=== PATIENT | male | born 1935 | race Hispanic/Latino ===

== ENCOUNTER 2021-02-03 21:19 | Emergency (ER) ==
--- OUTSIDE RECORDS SUMMARY | 2021-02-03 21:23 | XMS REPORT | Continuity of Care Document ---
:1935 Author Organization [facility] t Address [address] [place] [address] Care Team Providers Name Role Phone Doctor Unassigned, Name Attending Clinician Unavailable Gabe ANSARI, A Attending Clinician Problems This patient has no known problems. Allergies, Adverse Reactions, Alerts This patient has no known allergies or adverse reactions. Medications This patient has no known medications. Procedures This patient has no known procedures. Encounters Start End Encounter Admission Attending Care Care Encounter Source Date/Time Date/Time Type Type Clinicians Facility Department ID 2020-12-07 2020-12-07 Orders Doctor SHANELL [id number] 00:00:00 00:00:00 Only Unassigned, [place] [id number] [place] [facility] [id number] 2020-11-20 2020-11-20 Refill Gabe [facility] [id number] 00:00:00 00:00:00 [facility] [id number] [place] [id number] [facility] [phone] nal 044 [address] 2020-11-09 2020-11-09 Christiano Bernal [facility] [id number] 00:00:00 00:00:00 Management [facility] [id number] [place] [id number] Profess[facility] [phone] nal 044 [address] One 2020-10-29 2020-10-29 Office SACHA Bernal [id number] 08:09:38 09:09:55 Visit [facility] [id number] [place] [id number] [place] [phone] nal 044 [address] One Results This patient has no known results.
[2021-02-03 22:51] LABS: Urine Blood Negative (Negative); Urine Glucose 2+ (Negative); Urine Protein Trace (Negative); Urine Specific Gravity <=1.005 (1.005-1.030)
[2021-02-03 23:30] LABS: Absolute Lymphocytes (CBC) 0.6 K/uL (0.7-4.9); Basophils % 0.2 % (0-1.3); Hematocrit 40.5 % (39.6-49.0); Lymphocytes % 16.8 % (15.3-44.8); MPV 8.7 fL (7.6-11.3)
[2021-02-03 23:40] LABS: Protime INR 1.14
[2021-02-03 23:50] LABS: ALT/SGPT 31 U/L (12-78); AST/SGOT 27 U/L (15-37); Albumin 3.1 g/dL (3.4-5.0); Alkaline Phosphatase 58 U/L (45-117); Amylase 35 U/L (25-115); BUN Blood Urea Nitrogen 19 mg/dL (7-18); Bicarbonate 26 mmol/L (21-32); Bilirubin Direct 0.1 mg/dL (0-0.2); Bilirubin Total 0.3 mg/dL (0.2-1.0); Creatine Phosphokinase 31 U/L (39-308); Glucose Level 362 mg/dL (74-106); Lipase 74 U/L (73-393); Magnesium 1.7 mg/dL (1.8-2.4); NT PRO-BNP 118 pg/mL (<450); Potassium 3.8 mmol/L (3.5-5.1); Protein, Total 6.9 g/dL (6.4-8.2); Sodium Level 139 mmol/L (136-145); Troponin I < 0.02 ng/mL (0.0-0.045)
[2021-02-03 23:51] LABS: CKMB Creatine Kinase MB < 1.0 ng/mL (1.0-3.6)
[2021-02-04] MEDS ORDERED: NA CHLORIDE 0.9% 1,000 ML ONE (00:16)
[2021-02-04] MEDS ORDERED: NA CHLORIDE 0.9% 500 ML ONE (00:16)
[2021-02-04] MEDS ORDERED: ACETAMINOPHEN 500 MG TAB ONE (00:54)
[2021-02-04 01:37] LABS: Blood Morphology Comment NOTED (NOT SEEN); Platelet Estimate DECR; White Blood Cell Scan OK (OK)
[2021-02-04 01:47] LABS: SARS-COV-2 RT PCR POSITIVE (NEGATIVE)
[2021-02-04 01:49] LABS: Urine Bacteria <20 /HPF (NONE SEEN); Urine RBC NONE SEEN /HPF (NONE SEEN)
--- NOTE | 2021-02-04 01:56 | ER ---
Nurse's Notes [facility] Name: Ryan Hunter Age: 85 yrs Sex: Male : 1935 Arrival Date: 02/03/2021 Time: 22:12 Bed 20 Private MD: Diagnosis: Coronavirus infection, unspecified Presentation: 02/03 22:40 Method Of Arrival: EMS: [facility] kg 22:40 Coronavirus screen: Client denies travel out of the [place] in the last 14 days. At this kg time, unable to obtain information related to travel outside the [place] Client presents with at least one sign or symptom that may indicate coronavirus-19. Standard/surgical mask placed on the client. Provider contacted for isolation considerations. Ebola Screen: Patient negative for fever greater than or equal to 101.5 degrees Fahrenheit, and additional compatible Ebola Virus Disease symptoms Patient denies exposure to infectious person. Patient denies travel to an Ebola-affected area in the 21 days before illness onset. Initial Sepsis Screen: Does the patient meet any 2 criteria? RR > 20 per min. HR > 90 bpm. Does the patient have a suspected source of infection? No. Patient's initial sepsis screen is negative. Risk Assessment: Do you want to hurt yourself or someone else? Patient reports no desire to harm self or others. Onset of symptoms was February 03, 2021 at 06:00. 22:40 Acuity: SHARLENE 3 kg 23:02 Chief complaint: Patient states: Confusion, fever, and cough since 0600. Family found kg patient outside banging on window trying to get in saying that he was going to visit his brother which leaves in [place], . Was running a fever of 103.1 per family. This happened at 0600 EMS states: Pt was found outside at 0600 per family confused banging on the window saying he was going to visit his brother in [place]. Daughter stated he was running a fever of 103.1 at this time. Triage Assessment: 23:25 General: Appears in no apparent distress. Behavior is calm, cooperative, inappropriate kg for age. Pain: Denies pain. EENT: No deficits noted. Neuro: Level of Consciousness is awake, alert, confused, Oriented to person. Cardiovascular: No deficits noted. Cardiovascular: Capillary refill < 3 seconds Rhythm is regular. Respiratory: No deficits noted. Respiratory: Airway is patent Trachea midline Respiratory effort is even, unlabored, relaxed, Respiratory pattern is regular, Breath sounds are diminished bilaterally. GI: No deficits noted. : No deficits noted. Derm: No deficits noted. Historical: - Allergies: 23:17 No Known Allergies; kg - Home Meds: 23:17 Vitamin D Oral 400 unit daily [Active]; Farxiga 10 mg oral tab 1 tab once daily kg [Active]; esomeprazole magnesium 40 mg oral cpDR 1 cap once daily [Active]; Vytorin 10-20 10-20 mg oral tab 1 tab once daily [Active]; metformin 750 mg Oral Tb24 1 tab once daily [Active]; metoprolol tartrate 25 mg Oral tab 1 tab once daily [Active]; Myrbetriq 50 mg oral Tb24 1 tab once daily for bladder hyperactivity [Active]; mirtazapine 30 mg Oral TbDi 1 tab once daily [Active]; nateglinide 60 mg oral tab 1 tab 3 times per day [Active]; nitroglycerin 0.4 mg SL subl 1 tab every 5 minutes [Active]; [place]-3 Fish Oil 300-1,000 mg oral cap daily [Active]; Zofran 4 mg Oral tab 1 tab 4 times per day [Active]; Onglyza 5 mg oral tab 1 tab once daily [Active]; Revlimid 25 mg oral cap 1 cap once daily [Active]; tamsulosin 0.4 mg oral cap 1 cap once daily [Active]; tizanidine 2 mg oral cap 1 cap once daily [Active]; tramadol 50 mg oral tab 1 tab every 4 hours [Active]; Vitamin B-6 100 mg Oral tab 100 mg daily [Active]; - PMHx: 23:25 Arrhythmia; BPH; NDDM; GERD; HLD; HTN; Phimosis; Macrocytosis; Abnormal liver function kg test; Thrombocytopenia; Internal Hemorrhoids; Bright red blood per rectum; Constipation; Acute low back pain with sciatica; Polycythemia; lumbar stenosis; urinary and fecal incontinence; - Immunization history:: Adult Immunizations not up to date, Client reports having NOT received the Covid vaccine. - Social history:: Smoking status: Patient denies any tobacco usage or history of. Screenin:31 Abuse screen: Denies threats or abuse. Denies injuries from another. Nutritional kg screening: No deficits noted. Tuberculosis screening: No symptoms or risk factors identified. Fall Risk None identified. No fall in past 12 months (0 pts). Secondary diagnosis (15 points) Confusion. IV access (20 points). Ambulatory Aid- None/Bed Rest/Nurse Assist (0 pts). Gait- Impaired (20 pts.). Mental Status- Overestimates/Forgets Limitations (15 pts.). Total Cage Fall Scale indicates Low Risk Score (25-44 pts). Fall prevention measures have been instituted. Side Rails Up X 2 Placed close to Nursing Station Frequent Obs/Assesments occuring Family Present and informed to notify staff if they need to leave bedside As available Patient and Family Educated on Fall Prevention Program and strategies. Assessment: 23:31 Reassessment: See triage assessment. kg 02/04 02:30 Reassessment: Patient appears in no apparent distress at this time. Patient and/or em family updated on plan of care and expected duration. Pain level reassessed. Patient is alert, oriented x 3, equal unlabored respirations, skin warm/dry/pink. Vital Signs: 02/03 22:00 BP 130 / 67; Pulse 88; Resp 24; Pulse Ox 96% ; kg 22:30 BP 113 / 62; Pulse 83; Resp 22; Pulse Ox 95% ; kg 22:40 BP 117 / 61; Pulse 92; Resp 25; Temp 100.5(O); Pulse Ox 95% on R/A; Weight 79.38 kg kg (R); Height 5 ft. 5 in. (165.10 cm) (R); Pain 0/10; 23:00 BP 126 / 66; Pulse 78; Resp 23; Pulse Ox 96% ; kg 23:30 BP 124 / 79; Pulse 100; Resp 24; Pulse Ox 96% ; kg 02/04 00:45 Temp 98.7(O); kg 02:30 BP 124 / 79; Pulse 95; Resp 16; Pulse Ox 97% on R/A; em 02/03 22:40 Body Mass Index 29.12 (79.38 kg, 165.10 cm) kg ED Course: 02/03 22:12 Patient arrived in ED. em 22:36 [facility] kb 22:36 Yamilet Sommer is Attending Physician. kb 22:43 Shelley Clifton, RN is Primary Nurse. kg 23:17 Triage completed. kg 23:32 Maintain EMS IV. Dressing intact. Good blood return noted. Site clean \T\ dry. Gauge \T\ kg site: 20 R AC. 23:32 Arm band placed on right wrist. kg 23:32 Patient has correct armband on for positive identification. Placed in gown. Bed in low kg position. Call light in reach. Side rails up X2. Adult w/ patient. 23:33 Blood Culture Sent. kg 23:33 Blood Culture Sent. kg 23:33 CBC with Automated Diff Sent. kg 23:33 Protime (+INR) Sent. kg 23:33 PTT, Activated Partial Thromb Sent. kg 23:33 Procalcitonin Sent. kg 23:33 Lactate Sent. kg 23:33 Amylase Sent. kg 23:33 Lipase Sent. kg 23:33 NT PRO-BNP Sent. kg 23:33 Acetone Level Sent. kg 23:33 Troponin I Sent. kg 23:33 CKMB Creatine Kinase MB Sent. kg 23:33 Magnesium Sent. kg 23:33 Creatine Phosphokinase Sent. kg 0819 00:14 Head Brain Wo Cont In Process Unspecified. EDMS 01:19 Chest Single View In Process Unspecified. EDMS 02:42 No provider procedures requiring assistance completed. IV discontinued, intact, em bleeding controlled, No redness/swelling at site. Pressure dressing applied. Administered Medications: 00:20 Drug: NS 0.9% (30 ml/kg) 30 ml/kg Route: IV; Rate: bolus; Site: right antecubital; kg 02:45 Follow up: IV Status: Completed infusion; IV Intake: 2000ml em 00:41 Drug: Tylenol 1000 mg Route: PO; kg 01:08 Follow up: Response: No adverse reaction; Temperature is decreased kg Intake: 02:45 IV: 2000ml; Total: 2000ml. em Outcome: 01:55 Discharge ordered by . randi 02:42 Discharged to home via wheelchair, with family. em 02:42 Condition: stable 02:42 Discharge instructions given to patient, Instructed on discharge instructions, follow up and referral plans. Demonstrated understanding of instructions, follow-up care. 02:45 Patient left the ED. em Signatures: Dispatcher [employer] EDCA Eliza Hill, ROCHELLE-C CARE TECH-Thanh Chang, MATEO RN Shelley Retana, RN RN kg
--- NOTE | 2021-02-04 01:57 | EDPHYS ---
Physician Documentation [facility] Name: Ryan Hunter Age: 85 yrs Sex: Male : 1935 Arrival Date: 02/03/2021 Time: 22:12 Bed 20 Private MD: ED Physician Yamilet Sommer HPI: 02/04 01:29 This 85 yrs old Male presents to ER via EMS with complaints of fever, cough. kb 01:29 The patient or guardian reports cough, that is intermittent, described as mild. Onset: kb The symptoms/episode began/occurred 2 day(s) ago. Severity of symptoms: At their worst the symptoms were moderate, in the emergency department the symptoms are unchanged. Modifying factors: The symptoms are alleviated by nothing, the symptoms are aggravated by nothing. Associated signs and symptoms: Pertinent positives: fever, Pertinent negatives: chest pain, diarrhea, ear ache, nausea, rhinorrhea, sore throat, vomiting. The patient has not experienced similar symptoms in the past. The patient has not recently seen a physician. Daughter reports pt has had cough and fever up to 103 for 2 days. States he has confusion, difficulty ambulating (uses cane) and memory problems that have progressively been getting worse over the past few months. Historical: - Allergies: 02/03 23:17 No Known Allergies; kg - Home Meds: 23:17 Vitamin D Oral 400 unit daily [Active]; Farxiga 10 mg oral tab 1 tab once daily kg [Active]; esomeprazole magnesium 40 mg oral cpDR 1 cap once daily [Active]; Vytorin 10-20 10-20 mg oral tab 1 tab once daily [Active]; metformin 750 mg Oral Tb24 1 tab once daily [Active]; metoprolol tartrate 25 mg Oral tab 1 tab once daily [Active]; Myrbetriq 50 mg oral Tb24 1 tab once daily for bladder hyperactivity [Active]; mirtazapine 30 mg Oral TbDi 1 tab once daily [Active]; nateglinide 60 mg oral tab 1 tab 3 times per day [Active]; nitroglycerin 0.4 mg SL subl 1 tab every 5 minutes [Active]; [place]-3 Fish Oil 300-1,000 mg oral cap daily [Active]; Zofran 4 mg Oral tab 1 tab 4 times per day [Active]; Onglyza 5 mg oral tab 1 tab once daily [Active]; Revlimid 25 mg oral cap 1 cap once daily [Active]; tamsulosin 0.4 mg oral cap 1 cap once daily [Active]; tizanidine 2 mg oral cap 1 cap once daily [Active]; tramadol 50 mg oral tab 1 tab every 4 hours [Active]; Vitamin B-6 100 mg Oral tab 100 mg daily [Active]; - PMHx: 23:25 Arrhythmia; BPH; NDDM; GERD; HLD; HTN; Phimosis; Macrocytosis; Abnormal liver function kg test; Thrombocytopenia; Internal Hemorrhoids; Bright red blood per rectum; Constipation; Acute low back pain with sciatica; Polycythemia; lumbar stenosis; urinary and fecal incontinence; - Immunization history:: Adult Immunizations not up to date, Client reports having NOT received the Covid vaccine. - Social history:: Smoking status: Patient denies any tobacco usage or history of. ROS: 02/04 01:27 Abdomen/GI: Negative for abdominal pain, nausea, vomiting, diarrhea, and constipation. kb Constitutional: Positive for fever, Negative for body aches, chills, fatigue, malaise, poor PO intake, weight loss. Respiratory: Positive for cough, Negative for dyspnea on exertion, hemoptysis, orthopnea, pleurisy, shortness of breath, sputum production, wheezing. Neuro: Positive for altered mental status. All other systems are negative. Exam: 01:29 Constitutional: This is a well developed, well nourished patient who is awake, alert, kb and in no acute distress. Head/Face: Normocephalic, atraumatic. ENT: Moist Mucous membranes Cardiovascular: Regular rate and rhythm with a normal S1 and S2. No gallops, murmurs, or rubs. No pulse deficits. Respiratory: Respirations even and unlabored. No increased work of breathing, no retractions or nasal flaring. Abdomen/GI: Soft, non-tender. No distention Skin: Warm, dry with normal turgor. Normal color. MS/ Extremity: Pulses equal, no cyanosis. Neurovascular intact. Full, normal range of motion. Psych: Awake, alert, with orientation to person, place and time. Behavior, mood, and affect are within normal limits. 01:29 Neuro: Orientation: to person, place, Mentation: able to follow commands, Memory: no acute changes. Vital Signs: 02/03 22:00 BP 130 / 67; Pulse 88; Resp 24; Pulse Ox 96% ; kg 22:30 BP 113 / 62; Pulse 83; Resp 22; Pulse Ox 95% ; kg 22:40 BP 117 / 61; Pulse 92; Resp 25; Temp 100.5(O); Pulse Ox 95% on R/A; Weight 79.38 kg kg (R); Height 5 ft. 5 in. (165.10 cm) (R); Pain 0/10; 23:00 BP 126 / 66; Pulse 78; Resp 23; Pulse Ox 96% ; kg 23:30 BP 124 / 79; Pulse 100; Resp 24; Pulse Ox 96% ; kg 02/04 00:45 Temp 98.7(O); kg 02:30 BP 124 / 79; Pulse 95; Resp 16; Pulse Ox 97% on R/A; em 02/03 22:40 Body Mass Index 29.12 (79.38 kg, 165.10 cm) kg MDM: 02/03 22:36 Patient medically screened. kb 02/04 01:29 Data reviewed: vital signs, nurses notes. Data interpreted: Pulse oximetry: on room air kb is 96 %. Interpretation: normal. 01:55 Counseling: I had a detailed discussion with the patient and/or guardian regarding: the kb historical points, exam findings, and any diagnostic results supporting the discharge/admit diagnosis, lab results, radiology results, the need for outpatient follow up, a family practitioner, to return to the emergency department if symptoms worsen or persist or if there are any questions or concerns that arise at home. 02/03 22:40 Order name: Urine Microscopic Only; Complete Time: 01:53 kb 02/03 22:50 Order name: Urine Dipstick-Ancillary; Complete Time: 22:52 EDMS 02/03 22:55 Order name: Glucose, Ancillary Testing; Complete Time: 22:58 EDMS 02/03 23:24 Order name: Basic Metabolic Panel; Complete Time: 01:00 EDMS 02/03 23:24 Order name: Liver (Hepatic) Function; Complete Time: 01:00 EDMS 02/03 23:24 Order name: Creatine Phosphokinase; Complete Time: 01:00 EDMS 02/03 23:24 Order name: CKMB Creatine Kinase MB; Complete Time: 01:00 EDMS 02/03 23:24 Order name: Troponin I; Complete Time: 01:00 EDMS 02/03 23:24 Order name: NT PRO-BNP; Complete Time: 01:00 EDMS 02/03 23:24 Order name: Acetone Level; Complete Time: 01:00 EDMS 02/03 23:24 Order name: Magnesium; Complete Time: 01:00 EDMS 02/03 23:24 Order name: Amylase; Complete Time: 01:00 EDMS 02/03 23:24 Order name: Lipase; Complete Time: 01:00 EDMS 02/03 22:40 Order name: Cardiac monitoring; Complete Time: 23:34 kb 02/03 22:40 Order name: IV Saline Lock; Complete Time: 23:34 kb 02/03 22:40 Order name: Labs collected and sent; Complete Time: 23:34 kb 02/03 22:40 Order name: O2 Per Protocol; Complete Time: 23:34 kb 02/03 22:40 Order name: O2 Sat Monitoring; Complete Time: 23:34 kb 02/03 22:40 Order name: Urine Dipstick-Ancillary (obtain specimen); Complete Time: 00:12 kb 02/03 22:46 Order name: Accucheck; Complete Time: 23:34 kb 02/03 22:46 Order name: IV Saline Lock - Large Bore; Complete Time: 23:34 kb 02/03 23:24 Order name: Lactate; Complete Time: 23:50 EDMS 02/03 23:24 Order name: Procalcitonin; Complete Time: 01:53 EDMS 02/03 23:24 Order name: CBC with Automated Diff; Complete Time: 01:53 EDMS 02/03 23:24 Order name: Protime (+INR); Complete Time: 23:41 EDMS 02/03 23:24 Order name: PTT, Activated Partial Thromb; Complete Time: 23:41 EDMS 02/03 23:25 Order name: Blood Culture EDMS 02/03 23:25 Order name: Blood Culture EDMS 02/03 23:25 Order name: Head Brain Wo Cont EDMS 02/03 23:25 Order name: Chest Single View EDMS 02/03 23:35 Order name: CBC Smear Scan; Complete Time: 01:53 EDMS 02/04 01:48 Order name: COVID-19/FLU A+B; Complete Time: 02:33 EDMS Administered Medications: 00:20 Drug: NS 0.9% (30 ml/kg) 30 ml/kg Route: IV; Rate: bolus; Site: right antecubital; kg 02:45 Follow up: IV Status: Completed infusion; IV Intake: 2000ml em 00:41 Drug: Tylenol 1000 mg Route: PO; kg 01:08 Follow up: Response: No adverse reaction; Temperature is decreased kg Disposition: 07:17 Co-signature as Attending Physician, Yamilet Sommer I agree with the assessment and plan sp3 of care. Disposition Summary: 02/04/21 01:55 Discharge Ordered Location: Home kb Condition: Stable kb Diagnosis - Coronavirus infection, unspecified kb Followup: kb - With: Private Physician - When: 2 - 3 days - Reason: Recheck today's complaints, Continuance of care, Re-evaluation by your physician Followup: kb - With: Emergency Department - When: As needed - Reason: Worsening of condition Discharge Instructions: - Discharge Summary Sheet kb - Viral Respiratory Infection, Mrid-Hm-Nuzq kb - COVID-19 kb Forms: - Medication Reconciliation Form kb - Thank You Letter kb - Antibiotic Education kb - Prescription Opioid Use kb Signatures: Dispatcher [employer] EDEliza Quan, CIRAC BATCH FREEZER-Ckb Kirk Kennedy FNP-C BATCH FREEZER-Cla1 Shelley Clifton, RN RN kg Yamilet Sommer sp3 Thanh Dyson RN em Corrections: (The following items were deleted from the chart) 02/03 23:57 23:49 BASIC METABOLIC PANEL+C.LAB.BRZ ordered. EDMS EDMS 23:57 23:49 CBC+H.LAB.BRZ ordered. EDMS EDMS 23:57 23:49 HEPATIC FUNCTION+C.LAB.BRZ ordered. EDMS EDMS 23:57 23:49 MAGNESIUM+C.LAB.BRZ ordered. EDMS EDMS 23:57 23:49 PROBNP+C.LAB.BRZ ordered. EDMS EDMS 23:57 23:49 PROTIME (+INR)+COAG.LAB.BRZ ordered. EDMS EDMS 23:57 23:49 TROPONIN (EMERG DEPT USE ONLY)+C.LAB.BRZ ordered. EDMS EDMS 23:57 23:49 ACETONE, SERUM+C.LAB.BRZ ordered. EDMS EDMS : 23:50 AMYLASE, SERUM+C.LAB.BRZ ordered. EDMS EDMS 23: 23:50 BLOOD CULTURE*+BA.LAB.BRZ ordered. EDMS EDMS : 23:50 CREATINE PHOSPHOKINASE+C.LAB.BRZ ordered. EDMS EDMS 23: 23:50 CKMB+C.LAB.BRZ ordered. EDMS EDMS 23: 23:50 LACTATE+C.LAB.BRZ ordered. EDMS EDMS 23: 23:50 LIPASE+C.LAB.BRZ ordered. EDMS EDMS 23: 23:50 PCT+C.LAB.BRZ ordered. EDMS EDMS 23: 23:50 PTT, ACTIVATED+COAG.LAB.BRZ ordered. EDMS EDMS 23: 23:50 CORONAVIRUS+MR.LAB.BRZ ordered. EDMS EDMS 02/04 00:24 02/03 23:51 Head Brain Wo Cont+CT.RAD.BRZ ordered. EDMS EDMS 02/04 01:30 02/03 23:49 Chest Single View+RAD.RAD.BRZ ordered. EDMS EDMS 02/04 01:36 01:33 Influenza Screen (A \T\ B)+BA.LAB.BRZ ordered. EDMS EDMS
--- NOTE | 2021-02-04 10:48 | RAD REPORT ---
EXAM DESCRIPTION: RADChest Single View02/04/2021 1:20 am COMPARISON: None. CLINICAL HISTORY: Dyspnea FINDINGS: A single AP view of the chest demonstrates a normal cardiomediastinal silhouette. No pneumothorax or pleural effusion. No consolidation or pulmonary edema. Osseous structures are intact. IMPRESSION: No acute chest process. Electronically signed by: Raf Hilton MD 02/04/2021 1:31 AM CDT Due to temporary technical issues with the PACS/Fluency reporting system, reports are being signed by the in house radiologists without review as a courtesy to insure prompt reporting. The interpreting radiologist is fully responsible for the content of the report.
--- NOTE | 2021-02-04 11:18 | RAD REPORT ---
EXAM DESCRIPTION: CT - Head Brain Wo Cont - 02/04/2021 6:23 am CLINICAL HISTORY: 85 years Male mental status change COMPARISON: None. TECHNIQUE: Contiguous axial CT images obtained through the brain without IV contrast. This exam was performed according to our department optimization program which includes automated exp osure control, adjustment of the mA and/or kv according to patient size and/or use of iterative recon struction technique. FINDINGS: The ventricles and sulci are prominent consistent with atrophic changes. Microvascular ischemic changes. No mass lesions. No acute hemorrhage. Atherosclerotic calcifications. No fluid or significant mucosal thickening in the visualized paranasal sinuses. No depressed calvarial fractures. IMPRESSION: Atrophy and microvascular ischemic changes. No acute intracranial abnormality is ident ified. If there is clinical concern for the possibility of acute ischemic change, MRI could be obta ined to better evaluate. Electronically signed by: Calos Landon MD 02/04/2021 12:28 AM CDT Due to temporary technical issues with the PACS/Fluency reporting system, reports are being signed by the in house radiologists without review as a courtesy to insure prompt reporting. The interpreting radiologist is fully responsible for the content of the report.
== END 2021-02-04 02:45 | disposition home or self-care (01) ==
LOC: ER 21:19
DX: U07.1 COVID-19 (principal); I10 Essential (primary) hypertension; E11.9 Type 2 diabetes mellitus without complications
CPT/HCPCS: 0240U; 36415; 70450; 71045; 80048; 80076; 81003; 81015; 82010; 82150; 82550; 82553; 82947; 83605; 83690; 83735; 83880; 84145; 84484; 85025; 85610; 85730; 87040; 87205; 96365; 96366; 99284; U0003

== ENCOUNTER 2021-02-11 12:41 | Inpatient (IN) | payer OTHER ==
--- OUTSIDE RECORDS SUMMARY | 2021-02-11 12:44 | XMS REPORT | Continuity of Care Document ---
:1935 Author Organization [facility] t Address [address] [place] [address] Care Team Providers Name Role Phone Doctor Unassigned, Name Attending Clinician Unavailable Gabe ANSARI, Jarrell Attending Clinician Problems This patient has no known problems. Allergies, Adverse Reactions, Alerts This patient has no known allergies or adverse reactions. Medications This patient has no known medications. Procedures This patient has no known procedures. Encounters Start End Encounter Admission Attending Care Care Encounter Source Date/Time Date/Time Type Type Clinicians Facility Department ID 2020-12-07 2020-12-07 Orders Doctor SHANELL [id number] 00:00:00 00:00:00 Only Unassigned[place] [id number] [place] [facility] [id number] 2020-11-20 2020-11-20 Refill JYOTI Bernal [id number] 00:00:00 00:00:00 [facility] [id number] [place] [id number] [facility] [phone] nal 0[address] 2020-11-09 2020-11-09 JYOTI Hawley [id number] 00:00:00 00:00:00 Management [facility] [id number] [place] [id number] [facility] [phone] nal 044 [address] 2020-10-29 2020-10-29 Office Gabe [facility] [id number] 08:09:38 09:09:[address] [facility] [id number] [place] [id number] [place] [phone] [place] [address] [address] Results This patient has no known results.
[2021-02-11 13:25] LABS: Absolute Lymphocytes (CBC) 0.8 K/uL (0.7-4.9); Basophils % 0.3 % (0-1.3); Hematocrit 40.9 % (39.6-49.0); Lymphocytes % 13.9 % (15.3-44.8)
[2021-02-11 13:27] LABS: Protime INR 1.37
--- NOTE | 2021-02-11 13:28 | RAD REPORT ---
EXAM DESCRIPTION: RAD - Chest Single View - 02/11/2021 1:20 pm CLINICAL HISTORY: covid, sob COMPARISON: Chest Single View dated 02/04/2021 FINDINGS: Mild scattered bilateral airspace opacities which are new from prior. The heart size is wi thin normal limits.No acute osseous abnormality. No significant pleural effusions or pneumothorax. IMPRESSION: Mild bilateral airspace opacities which is new from prior and concerning for multifocal pneumonia, including Covid-19.
[2021-02-11 13:58] LABS: ALT/SGPT 35 U/L (12-78); AST/SGOT 51 U/L (15-37); Albumin 2.6 g/dL (3.4-5.0); Alkaline Phosphatase 61 U/L (45-117); BUN Blood Urea Nitrogen 15 mg/dL (7-18); Bicarbonate 25 mmol/L (21-32); Bilirubin Direct 0.2 mg/dL (0-0.2); Bilirubin Total 0.4 mg/dL (0.2-1.0); Glucose Level 371 mg/dL (74-106); Magnesium 1.9 mg/dL (1.8-2.4); NT PRO-BNP 821 pg/mL (<450); Potassium 3.3 mmol/L (3.5-5.1); Protein, Total 7.3 g/dL (6.4-8.2); Sodium Level 139 mmol/L (136-145); Troponin (Emerg Dept Use Only) < 0.02 ng/mL (0.0-0.045)
[2021-02-11] MEDS ORDERED: dexAMETHasone 10 MG/ML VIAL ONE (14:57)
[2021-02-11] MEDS ORDERED: dexAMETHasone 4 MG/ML VIAL ONE (14:58)
--- NOTE | 2021-02-11 15:14 | ER ---
Nurse's Notes [facility] Name: Ryan Colorado Age: 85 yrs Sex: Male : 1935 Arrival Date: 02/11/2021 Time: 12:44 Bed 26 Private MD: Diagnosis: Coronavirus - Hypoxia Presentation: 02/11 12:45 Chief complaint: EMS states: +COVID last week, c/o SOB. per EMS o2 sat 70s on RA. tr6 Coronavirus screen: At this time, unable to obtain information related to travel outside the [place] difficulty breathing, shortness of breath. Ebola Screen: No symptoms or risks identified at this time. Initial Sepsis Screen: Does the patient meet any 2 criteria? No. Patient's initial sepsis screen is negative. Does the patient have a suspected source of infection? Yes: Other: +covid. Risk Assessment: Do you want to hurt yourself or someone else? Patient reports no desire to harm self or others. Onset of symptoms is unknown. 12:45 Method Of Arrival: EMS: [facility] tr6 12:45 Acuity: SHARLENE 3 tr6 Triage Assessment: 12:46 General: Appears in no apparent distress. Behavior is calm, cooperative, appropriate tr6 for age. Pain: Denies pain. EENT: No deficits noted. Neuro: Level of Consciousness is awake, alert, obeys commands, Oriented to person, place, time, situation, Appropriate for age. Cardiovascular: No deficits noted. Respiratory: Reports shortness of breath at rest on exertion. GI: No deficits noted. : No deficits noted. Derm: No deficits noted. Musculoskeletal: No deficits noted. Historical: - Immunization history:: Client reports having NOT received the Covid vaccine. - Social history:: Smoking status: unknown. Screenin:48 Abuse screen: Denies threats or abuse. Denies injuries from another. Nutritional tr6 screening: No deficits noted. Tuberculosis screening: No symptoms or risk factors identified. Fall Risk None identified. Assessment: 13:23 Reassessment: see triage assessment. tr6 Vital Signs: 12:45 BP 138 / 86; Pulse 112; Resp 20; Temp 99(O); Pulse Ox 91% on 6 lpm NC; tr6 14:30 BP 135 / 72; Pulse 103; Resp 20; Pulse Ox 90% on 6 lpm NC; tr6 ED Course: 12:44 Patient arrived in ED. tr6 12:45 Suzy Bernard, RN is Primary Nurse. tr6 12:46 Triage completed. tr6 12:48 No apparent distress. Awaiting ED provider evaluation. tr6 12:48 Patient has correct armband on for positive identification. Placed in gown. Bed in low tr6 position. Side rails up X2. linux unix system administrator on. Pulse ox on. NIBP on. Door closed. Noise minimized. Visitors limited. Lights dimmed. Moved to private room. Warm blanket given. Diet: Patient is NPO. 12:48 No provider procedures requiring assistance completed. Oxygen administration via nasal tr6 cannula \T\ 6L/min. 12:56 Terrence Salazar PA is PHCP. [facility] 12:56 Sina Jenkins MD is Attending Physician. [facility] 13:21 XRAY Chest (1 view) In Process Unspecified. EDMS 13:24 Inserted saline lock: 18 gauge in left wrist, using aseptic technique. Blood collected. tr6 15:08 Procalcitonin Sent. dh3 15:08 Lactate Sent. dh3 15:08 Ferritin Sent. dh3 15:08 CRP Sent. dh3 15:12 Donald Andrea is Hospitalizing Provider. [facility] Administered Medications: 14:40 Drug: Decadron - Dexamethasone 10 mg Route: IVP; Site: left wrist; tr6 15:06 Follow up: Response: No adverse reaction tr6 Outcome: 15:13 Decision to Hospitalize by Provider. [facility] 02/12 17:45 Patient left the ED. Signatures: Dispatcher [employer] EDMS Terrence Salazar PA PA jmm Smirch, Shelby RN RN Joann Mast [facility] Suzy Bernard, RN RN tr6 Corrections: (The following items were deleted from the chart) 02/11 12:47 12:46 Allergies: No Known Allergies; tr6 tr6 13:24 12:45 Chief complaint: EMS states: +COVID last week, c/o SOB tr6 tr6
--- NOTE | 2021-02-11 15:14 | EDPHYS ---
Physician Documentation [facility] Name: Ryan Colorado Age: 85 yrs Sex: Male : 1935 Arrival Date: 02/11/2021 Time: 12:44 Bed 26 Private MD: ED Physician Sina Jenkins HPI: 02/11 15:03 This 85 yrs old Male presents to ER via EMS with complaints of shortness of jmm breath. 15:03 Onset: The symptoms/episode began/occurred gradually. Duration: The symptoms are jmm continuous. The patient's shortness of breath. Associated signs and symptoms: Pertinent positives: non-productive cough, SOB, Pertinent negatives: chest pain. The patient has not experienced similar symptoms in the past. This is an 85 year old male that present to the ED with complaints of shortness of breath, coughing. Seen in the ED on the and discharged. Pulse o2 in the 70's on scene. . Historical: - Immunization history:: Client reports having NOT received the Covid vaccine. - Social history:: Smoking status: unknown. ROS: 15:03 Constitutional: Negative for fever, chills, and weight loss, Cardiovascular: Negative jmm for chest pain, palpitations, and edema. 15:03 Respiratory: Positive for cough, sob. 15:03 All other systems are negative. Exam: 15:03 Constitutional: This is a well developed, well nourished patient who is awake, alert, jmm and in no acute distress. Head/Face: atraumatic. Eyes: EOMI, no conjunctival erythema appreciated ENT: Moist Mucus Membranes Neck: Trachea midline, Supple Chest/axilla: Normal chest wall appearance and motion. Cardiovascular: Regular rate and rhythm. No edema appreciated Respiratory: Normal respirations, no respiratory distress appreciated Abdomen/GI: Non distended, soft Back: Normal ROM Skin: General appearance color normal MS/ Extremity: Moves all extremities, no obvious deformities appreciated, no edema noted to the lower extremities Psych: Behavior is normal, Mood is normal, Patient is cooperative and pleasant Vital Signs: 12:45 BP 138 / 86; Pulse 112; Resp 20; Temp 99(O); Pulse Ox 91% on 6 lpm NC; tr6 14:30 BP 135 / 72; Pulse 103; Resp 20; Pulse Ox 90% on 6 lpm NC; tr6 MDM: 13:05 Patient medically screened. allison 15:09 Data reviewed: vital signs, nurses notes. ED course: I discussed with Randy whom cale accepted the patient to Dr. Andrea's service. . 02/11 12:56 Order name: Basic Metabolic Panel; Complete Time: 14:03 [facility] 02/11 12:56 Order name: CBC with Diff; Complete Time: 13:36 [facility] 02/11 12:56 Order name: LFT's; Complete Time: 14:03 [facility] 02/11 12:56 Order name: Magnesium; Complete Time: 14:03 [facility] 02/11 12:56 Order name: NT PRO-BNP; Complete Time: 14:03 [facility] 02/11 12:56 Order name: PT-INR; Complete Time: 13:36 [facility] 02/11 12:56 Order name: Troponin (emerg Dept Use Only); Complete Time: 14:03 [facility] 02/11 14:44 Order name: CRP; Complete Time: 15:55 [facility] 02/11 14:44 Order name: Ferritin; Complete Time: 15:55 [facility] 02/11 14:44 Order name: Procalcitonin; Complete Time: 16:01 [facility] 02/11 14:44 Order name: Lactate; Complete Time: 15:54 [facility] 02/12 08:33 Order name: CBC with Automated Diff; Complete Time: 10:49 [facility] 02/12 08:35 Order name: Glucose, Ancillary Testing; Complete Time: 10:49 [facility] 02/12 09:33 Order name: Procalcitonin; Complete Time: 10:49 [facility] 02/11 12:56 Order name: XRAY Chest (1 view); Complete Time: 13:29 [facility] 02/11 12:56 Order name: EKG; Complete Time: 12:57 [facility] 02/11 12:56 Order name: Cardiac monitoring; Complete Time: 13:23 [facility] 02/11 12:56 Order name: EKG - Nurse/Tech; Complete Time: 13:23 [facility] 02/11 17:02 Order name: CONS Physician Consult [facility] 02/12 09:39 Order name: Basic Metabolic Panel; Complete Time: 10:49 [facility] 02/12 09:39 Order name: Lipid Profile; Complete Time: 10:49 [facility] 02/12 09:39 Order name: C-Reactive Protein; Complete Time: 10:49 [facility] 02/12 09:39 Order name: T4 Free; Complete Time: 10:49 [facility] 02/12 09:39 Order name: Magnesium; Complete Time: 10:49 [facility] 02/12 09:39 Order name: Thyroid Stimulating Hormone; Complete Time: 10:49 [facility] 02/12 09:39 Order name: Ferritin; Complete Time: 10:49 [facility] 02/12 09:58 Order name: Hemoglobin A1c; Complete Time: 10:49 [facility] 02/12 12:26 Order name: Glucose, Ancillary Testing; Complete Time: 15:09 [facility] 02/12 16:44 Order name: Glucose, Ancillary Testing; Complete Time: 16:55 [facility] 02/11 12:56 Order name: IV Saline Lock; Complete Time: 13:23 [facility] 02/11 12:56 Order name: Labs collected and sent; Complete Time: 13:23 [facility] 02/11 12:56 Order name: O2 Per Protocol; Complete Time: 13:23 [facility] 02/11 12:56 Order name: O2 Sat Monitoring; Complete Time: 13:23 [facility] Administered Medications: 14:40 Drug: Decadron - Dexamethasone 10 mg Route: IVP; Site: left wrist; tr6 15:06 Follow up: Response: No adverse reaction tr6 Disposition Summary: 02/11/21 15:13 Hospitalization Ordered Hospitalization Status: Observation [facility] Provider: Donald Andrea Condition: Stable [facility] Problem: new [facility] Symptoms: are unchanged [facility] Bed/Room Type: Standard [facility] Location: Telemetry/MedSurg (observation)(02/12/21 15:51) Room Assignment: 408(02/12/21 15:51) Diagnosis - Coronavirus - Hypoxia [facility] Forms: - Medication Reconciliation Form [facility] - SBAR form [facility] Addendum: 02/14/2021 08:30 Co-signature as Attending Physician, Sina Jenkins MD I agree with the assessment and c mccollum plan of care. Signatures: Dispatcher [employer] Chayito Isbell RN RN dw Anderson, Corey, MD MD cha Mickail, Joel, PA PA jmm Roszak, Josh, PA PA [id number] Renae Mcfarlane RN RN tl1 Wilfredo Woodard tt3 Ramnanan, Suzy, RN RN tr6 Corrections: (The following items were deleted from the chart) 02/11 12:47 12:46 Allergies: No Known Allergies; tr6 tr6 02/12 00:18 02/11 15:13 Telemetry/MedSurg (Inpatient) [facility] tl1 02/12 00:18 02/11 15:13 [facility] tl1 02/12 00:20 00:18 [facility] ER HOLD tl1 tl1 00:20 00:18 ERHOLD- tl1 tl1 00:20 00:20 Telemetry/MedSurg (observation) tl1 tt3 00:20 00:20 tl1 tt3 15:51 00:20 [facility] ER HOLD tt3 dw 15:51 00:20 ERHOLD- tt3 dw
[2021-02-11 15:55] LABS: Ferritin 1535.1 ng/mL (26-388)
--- NOTE | 2021-02-11 17:47 | P.HP ---
Certification for Inpatient Patient admitted to: Inpatient With expected LOS: >2 Midnights Patient will require the following post-hospital care: None Practitioner: I am a practitioner with admitting privileges, knowledge of patient current condition, hospital course, and medical plan of care. Services: Services provided to patient in accordance with Admission requirements found in Title 42 Section 412.3 of the Code of Federal Regulations Patient History Date of Service: 02/11/21 Primary Care Provider: Dr. Sommer in [place] Reason for admission: covid pneumonia History of Present Illness: This is an 85 y/o with HTN, DM2, HLD, who presents today with worsening SOB x 3 days. History is obtained from daughter (Swathi) since patient is very hard of hearing. Patient diagnosed with covid on 02/04. Daughter reports pt was c/o chest pain and was found to be hypoxic 75-78%. EMS brought patient in. No covid vaccine per daughter. K 3.3, lactate 1.6, gluc 371, ferritin 1535, CRP 218, procal 0.50 negative troponin CXR: FINDINGS: Mild scattered bilateral airspace opacities which are new from prior. The heart size is within normal limits.No acute osseous abnormality. No significant pleural effusions or pneumothorax. IMPRESSION: Mild bilateral airspace opacities which is new from prior and peggy rning for multifocal pneumonia, including Covid-19. - Past Medical/Surgical History -: DM2 -: HTN -: HLD -: bone marrow cancer Past Surgical History: Patient denies surgical history Psychosocial/ Personal History: lives with daughter and son in law - Family History Sister -: Cancer (breast) - Social History Smoking Status: Never smoker Alcohol use: No CD- Drugs: No Caffeine use: Yes Review of Systems 10-point ROS is otherwise unremarkable Physical Examination - Physical Exam General: Alert, Cooperative HEENT: Normocephalic, Mucous membr. moist/pink, Other (hard of hearing), EOMI Neck: Supple Respiratory: Diminished, Crackles/rales Cardiovascular: No edema, Normal pulses Capillary refill: <2 Seconds Gastrointestinal: Normal bowel sounds, Soft and benign, Non-distended, No tenderness Musculoskeletal: No swelling, No contractures Integumentary: No rashes, No cyanosis Neurological: Normal strength at 5/5 x4 extr, Normal affect - Studies Laboratory Data (last 24 hrs) 02/11/21 13:12: PT 15.8 H, INR 1.37 02/11/21 13:12: WBC 5.70 D, Hgb 14.1, Hct 40.9, Plt Count 157 D 02/11/21 13:12: Sodium 139, Potassium 3.3 L, BUN 15, Creatinine 0.83, Glucose 371 H, Magnesium 1.9, Total Bilirubin 0.4, AST 51 H, ALT 35, Alkaline Phosphatase 61 Assessment and Plan - Problems (Diagnosis) (1) Pneumonia due to COVID-19 virus Current Visit: Yes Status: Acute (2) Hypokalemia Current Visit: Yes Status: Acute (3) Diabetes mellitus Current Visit: Yes Status: Acute - Plan IV steroids vitamin supplementation pulmonology consulted trend inflammatory markers wean oxygen as tolerated replete potassium and monitor BMP SSI and accuchecks. Hgb A1c ordered DVT prophylaxis-lovenox will consult respiratory and medical social worker to d/c pt with home oxygen Discharge Plan: Home Plan to discharge in: Greater than 2 days - Advance Directives Does patient have a Living Will: No Does patient have a Durable POA for Healthcare: No - Code Status/Comfort Care Code Status Assessed: Yes (full) Time Spent Managing Pts Care (In Minutes): 70
[2021-02-12] MEDS ORDERED: ONDANSETRON 4 MG/2 ML VIAL IV PRN (07:28)
[2021-02-12] MEDS: MELATONIN 5 MG TABLET PO SCH ×2 (07:28→21:38)
[2021-02-12] MEDS ORDERED: FAMOTIDINE 20 MG TAB PO SCH ×2 (07:28→09:00)
[2021-02-12] MEDS: ASCORBIC ACID 500 MG TABLET PO SCH ×5 (07:28→21:37)
[2021-02-12] MEDS ORDERED: D50W 25 GM/50 ML SYRINGE IV PRN (07:28)
[2021-02-12] MEDS ORDERED: METHYLPRED NA SUC 80 MG in NA CHLORIDE 0.9% 100 ML IV SCH (07:28)
[2021-02-12] MEDS ORDERED: POTASSIUM CL SA 10 MEQ TAB PO ONE ×2 (07:28→09:01)
[2021-02-12] MEDS: INSULIN -REGULAR HUMAN 50 UNIT/0.5 ML ML SQ SCH ×6 (07:28→21:38)
[2021-02-12] MEDS ORDERED: GLUCAGON 1 MG/VIAL IM PRN (07:28)
[2021-02-12 08:31] LABS: Absolute Lymphocytes (CBC) 0.5 K/uL (0.7-4.9); Basophils % 0.1 % (0-1.3); Lymphocytes % 12.7 % (15.3-44.8); MPV 9.3 fL (7.6-11.3); RBC Red Blood Cell Count 4.15 M/uL (4.33-5.43)
[2021-02-12] MEDS: THIAMINE HCL 100 MG TABLET PO SCH ×2 (09:00→21:37)
[2021-02-12] MEDS: METHYLPREDNISOLONE 125 MG INJ IV SCH ×3 (09:00→21:37)
[2021-02-12] MEDS: VITAMIN D 1000 UNIT TAB PO SCH (09:00)
[2021-02-12] MEDS ORDERED: ENOXAPARIN 40 MG/0.4 ML SQ SCH (09:00)
[2021-02-12] MEDS: ZINC SULFATE 220 MG CAP PO SCH (09:00)
[2021-02-12] MEDS ORDERED: METHYLPREDNISOLONE 125 MG INJ ONE (09:00)
[2021-02-12] MEDS ORDERED: VITAMIN D 1000 UNIT TAB ONE ×2 (09:01→09:29)
[2021-02-12] MEDS ORDERED: THIAMINE HCL 100 MG TABLET ONE (09:01)
[2021-02-12] MEDS ORDERED: ZINC SULFATE 220 MG CAP ONE (09:01)
[2021-02-12] MEDS ORDERED: ASCORBIC ACID 500 MG TABLET ONE ×3 (09:01→17:02)
[2021-02-12] MEDS ORDERED: ENOXAPARIN 40 MG/0.4 ML SQ ONE (09:02)
[2021-02-12] MEDS ORDERED: FAMOTIDINE 20 MG TAB ONE (09:02)
[2021-02-12] MEDS ORDERED: INSULIN -REGULAR HUMAN 50 UNIT/0.5 ML ML ONE ×3 (09:05→17:03)
[2021-02-12 09:38] LABS: Ferritin 1538.9 ng/mL (26-388); Magnesium 2.1 mg/dL (1.8-2.4); Potassium 4.1 mmol/L (3.5-5.1); Thyroid Stimulating Hormone 0.225 uIU/mL (0.360-3.740)
[2021-02-12] MEDS ORDERED: METHYLPREDNISOLONE 40 MG INJ ONE ×2 (13:13→17:03)
--- NOTE | 2021-02-12 16:51 | P.CNS ---
Date of Consult: 02/12/21 Reason for Consult: Respiratory failure from coronavirus Primary Care Provider: Dr. 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 admitted with dyspnea respiratory failure from coronavirus Allergies No Known Allergies Allergy (Unverified 02/12/21 07:25) - Past Medical/Surgical History -: DM2 -: HTN -: HLD -: bone marrow cancer Psychosocial/ Personal History: lives with daughter and son in law - Family History Sister Medical History: Cancer (breast) - Social History Alcohol use: No CD- Drugs: No Caffeine use: Yes Review of Systems General: Weakness Respiratory: Shortness of Breath Physical Examination Temp Pulse Resp BP Pulse Ox 97.7 F 103 H 24 H 134/81 93 02/12/21 12:00 02/12/21 12:00 02/12/21 12:00 02/12/21 12:00 02/12/21 12:00 General: Alert, Moderate distress - Problems (1) Pneumonia due to COVID-19 virus Current Visit: Yes Status: Acute Plan: Age 85 admitted with respiratory failure from coronavirus difficulty keeping his oxygen on diffuse changes on chest x-ray CRP very elevated qualify for Barcitinib
--- NOTE | 2021-02-12 18:17 | P.PN ---
Subjective Date of Service: 02/12/21 Primary Care Provider: Dr. Sommer in [place] Chief Complaint: covid pneumonia Patient maintained on high-flow oxygen. Physical Examination - Vital Signs Temperature: 97.4 F Blood Pressure: 165/81 Pulse: 115 Respirations: 24 Pulse Ox (%): 93 - Physical Exam General: Alert, In no apparent distress HEENT: Mucous membr. moist/pink Neck: JVD not distended Respiratory: Other (Mildly labored breathing) Cardiovascular: Regular rate/rhythm, Normal S1 S2 Gastrointestinal: Soft and benign, Non-distended Musculoskeletal: No swelling Integumentary: No rashes Neurological: Normal strength at 5/5 x4 extr Assessment And Plan - Current Problems (Diagnosis) (1) Acute respiratory failure with hypoxia Current Visit: Yes Status: Acute (2) Diabetes mellitus Current Visit: Yes Status: Acute (3) Pneumonia due to COVID-19 virus Current Visit: Yes Status: Acute - Plan Continue IV steroid, vitamin supplementation. Zinc supplementation Patient started on Baracitinib today. Titrate oxygen. Patient with hemoglobin A1c of 11. Manage blood sugar with insulin sliding scale and Lantus insulin. Patient started on Xarelto for DVT prophylaxis.
[2021-02-12] MEDS ORDERED: HYDRALAZINE HCL 20 MG/ML VIAL IV PRN (19:24)
--- NOTE | 2021-02-12 20:23 | RAD REPORT ---
EXAM DESCRIPTION: CT - Head Brain Wo Cont - 02/12/2021 8:04 pm CLINICAL HISTORY: Head injury status post fall COMPARISON: February 03, 2021 TECHNIQUE: Computed axial tomography of the head was obtained. IV contrast was not requested. All CT scans are performed using dose optimization technique as appropriate and may include automated exposure control or mA/KV adjustment according to patient size. FINDINGS: An intracranial bleed is not seen . The ventricles are normal in caliber. No extra-axial fluid collection is noted. Prominent cerebral atrophy Mild to moderate low-density areas within periventricular, deep and subcortical white matter likely r epresent ischemic changes secondary to small vessel disease. Fluid within the sinuses/ mastoids is not seen. IMPRESSION: No acute intracranial abnormality is seen. If patient's symptoms persist MRI of the bra in would be recommended.
[2021-02-12] MEDS: ASPIRIN EC 81 MG TAB PO SCH (21:37)
[2021-02-12] MEDS: RIVAROXABAN 20 MG TABLET PO SCH (21:38)
[2021-02-12] MEDS: BARICITINIB 2 MG TABLET PO SCH (22:36)
[2021-02-13 06:36] LABS: Bicarbonate 19 mmol/L (21-32); Potassium 4.1 mmol/L (3.5-5.1); Sodium Level 143 mmol/L (136-145)
[2021-02-13 06:37] LABS: BUN Blood Urea Nitrogen 22 mg/dL (7-18); Glucose Level 336 mg/dL (74-106)
[2021-02-13] MEDS: BARICITINIB 2 MG TABLET PO SCH (08:37)
[2021-02-13] MEDS: THIAMINE HCL 100 MG TABLET PO SCH ×2 (08:37→20:59)
[2021-02-13] MEDS: ASCORBIC ACID 500 MG TABLET PO SCH ×4 (08:37→20:59)
[2021-02-13] MEDS: ASPIRIN EC 81 MG TAB PO SCH (08:38)
[2021-02-13] MEDS: ZINC SULFATE 220 MG CAP PO SCH (08:38)
[2021-02-13] MEDS: VITAMIN D 1000 UNIT TAB PO SCH (08:38)
[2021-02-13] MEDS: METHYLPREDNISOLONE 125 MG INJ IV SCH ×3 (08:38→20:58)
[2021-02-13] MEDS: INSULIN -REGULAR HUMAN 50 UNIT/0.5 ML ML SQ SCH ×4 (08:39→22:30)
[2021-02-13] MEDS: FAMOTIDINE 20 MG TAB PO SCH (09:07)
[2021-02-13 09:52] LABS: Absolute Lymphocytes (CBC) 0.6 K/uL (0.7-4.9); Basophils % 0.1 % (0-1.3); Hematocrit 41.2 % (39.6-49.0); Lymphocytes % 7.6 % (15.3-44.8); RBC Red Blood Cell Count 4.09 M/uL (4.33-5.43)
[2021-02-13 10:17] LABS: Albumin 2.6 g/dL (3.4-5.0); Bilirubin Total 0.6 mg/dL (0.2-1.0); Potassium 3.8 mmol/L (3.5-5.1); Protein, Total 7.5 g/dL (6.4-8.2)
[2021-02-13 12:04] LABS: Blood Morphology Comment NOT SEEN (NOT SEEN); Platelet Estimate ADEQ; White Blood Cell Scan OK (OK)
--- NOTE | 2021-02-13 13:29 | P.PN ---
Subjective Date of Service: 02/13/21 Primary Care Provider: Dr. Sommer in [place] Chief Complaint: covid pneumonia Patient maintained on high-flow oxygen. No new changes. Physical Examination - Vital Signs Temperature: 98.3 F Blood Pressure: 128/67 Pulse: 108 Respirations: 20 Pulse Ox (%): 90 - Physical Exam General: In no apparent distress HEENT: Other (Oxygen by nasal cannula) Neck: JVD not distended Respiratory: Other (No labored breathing) Cardiovascular: Regular rate/rhythm, Normal S1 S2 Gastrointestinal: Soft and benign, Non-distended Musculoskeletal: No swelling Integumentary: No rashes Neurological: Normal strength at 5/5 x4 extr Assessment And Plan - Current Problems (Diagnosis) (1) Acute respiratory failure with hypoxia Current Visit: Yes Status: Acute (2) Diabetes mellitus Current Visit: Yes Status: Acute (3) Pneumonia due to COVID-19 virus Current Visit: Yes Status: Acute - Plan Continue IV steroid, vitamin supplementation. Zinc supplementation Continue Baracitinib started on 02/12. Titrate oxygen. Patient with hemoglobin A1c of 11. Manage blood sugar with insulin sliding scale and Lantus insulin. Patient started on Xarelto for DVT prophylaxis. Increase activity as tolerated.
[2021-02-13] MEDS ORDERED: GLUCAGON 1 MG/VIAL IM PRN (13:31)
[2021-02-13] MEDS ORDERED: D50W 25 GM/50 ML SYRINGE IV PRN (13:31)
[2021-02-13] MEDS: INSULIN GLARGINE 100 UNITS/ML SQ SCH (17:14)
[2021-02-13] MEDS: RIVAROXABAN 20 MG TABLET PO SCH (17:14)
[2021-02-13] MEDS ORDERED: LORazepam 2 MG/ML VIAL ONE (19:41)
[2021-02-13] MEDS: MELATONIN 5 MG TABLET PO SCH (20:59)
[2021-02-14 06:53] LABS: Albumin 2.8 g/dL (3.4-5.0); Bilirubin Total 0.6 mg/dL (0.2-1.0); Potassium 3.4 mmol/L (3.5-5.1)
[2021-02-14] MEDS ORDERED: POTASSIUM CL SA 10 MEQ TAB PO ONE (08:00)
[2021-02-14] MEDS: BARICITINIB 2 MG TABLET PO SCH (08:50)
[2021-02-14] MEDS: VITAMIN D 1000 UNIT TAB PO SCH (08:50)
[2021-02-14] MEDS: ASCORBIC ACID 500 MG TABLET PO SCH ×4 (08:51→20:33)
[2021-02-14] MEDS: THIAMINE HCL 100 MG TABLET PO SCH ×2 (08:51→20:34)
[2021-02-14] MEDS: ZINC SULFATE 220 MG CAP PO SCH (08:51)
[2021-02-14] MEDS: ASPIRIN EC 81 MG TAB PO SCH (08:51)
[2021-02-14] MEDS: FAMOTIDINE 20 MG TAB PO SCH (08:51)
[2021-02-14] MEDS: METHYLPREDNISOLONE 125 MG INJ IV SCH ×3 (08:52→20:34)
[2021-02-14] MEDS: INSULIN -REGULAR HUMAN 50 UNIT/0.5 ML ML SQ SCH ×4 (08:57→20:34)
[2021-02-14 09:40] LABS: C-Reactive Protein 53.8 mg/L (<3.00); Ferritin 1333.7 ng/mL (26-388); Potassium 3.8 mmol/L (3.5-5.1)
[2021-02-14 09:41] LABS: Absolute Lymphocytes (CBC) 0.3 K/uL (0.7-4.9); Basophils % 0.1 % (0-1.3); Hematocrit 42.5 % (39.6-49.0); MPV 8.8 fL (7.6-11.3); RBC Red Blood Cell Count 4.25 M/uL (4.33-5.43)
--- NOTE | 2021-02-14 11:16 | P.PN ---
Subjective Date of Service: 02/14/21 Primary Care Provider: Dr. Sommer in [place] Chief Complaint: covid pneumonia Not doing well still requiring high concentrations of oxygen Review of Systems General: Weakness Respiratory: Shortness of Breath Physical Examination - Vital Signs Temperature: 97.9 F Blood Pressure: 118/58 Pulse: 115 Respirations: 24 Pulse Ox (%): 82 - Physical Exam General: Alert, Cooperative Assessment & Plan - Problems (Diagnosis) (1) Pneumonia due to COVID-19 virus Current Visit: Yes Status: Acute Plan: Respiratory failure patient still very hypoxic on 15 L of nasal cannula oxygen on max therapy 1 dose of IV Lasix repeat chest x-ray
[2021-02-14] MEDS ORDERED: FUROSEMIDE 20 MG/ 2ML VIAL IV ONE (12:00)
--- NOTE | 2021-02-14 12:06 | P.PN ---
Subjective Date of Service: 02/14/21 Primary Care Provider: Dr. Sommer in [place] Chief Complaint: covid pneumonia Patient is confused. Occasionally agitated and taking his oxygen off intermittently He is maintained on 15 L oxygen by nasal cannula. Physical Examination - Vital Signs Temperature: 97.9 F Blood Pressure: 120/86 Pulse: 87 Respirations: 24 Pulse Ox (%): 82 - Physical Exam General: In no apparent distress, Confused Neck: JVD not distended Respiratory: Other (Nonlabored breathing) Cardiovascular: Regular rate/rhythm, Normal S1 S2 Gastrointestinal: Soft and benign, Non-distended Musculoskeletal: No swelling Integumentary: No rashes Neurological: Other (No focal motor deficit) Assessment And Plan - Current Problems (Diagnosis) (1) Acute respiratory failure with hypoxia Current Visit: Yes Status: Acute (2) Diabetes mellitus Current Visit: Yes Status: Acute (3) Pneumonia due to COVID-19 virus Current Visit: Yes Status: Acute - Plan Continue IV steroid, vitamin supplementation. Zinc supplementation Continue Baracitinib started on 02/12. Titrate oxygen. Patient with hemoglobin A1c of 11. Manage blood sugar with insulin sliding scale and Lantus insulin. Patient started on Xarelto for DVT prophylaxis. Increase activity as tolerated. May need Haldol p.r.n. for agitation.
[2021-02-14] MEDS ORDERED: POTASSIUM 25 MEQ EFFERV TAB PO ONE (15:00)
[2021-02-14] MEDS: INSULIN GLARGINE 100 UNITS/ML SQ SCH (17:17)
[2021-02-14] MEDS: RIVAROXABAN 20 MG TABLET PO SCH (17:18)
[2021-02-14] MEDS: MELATONIN 5 MG TABLET PO SCH (20:33)
[2021-02-14] MEDS: GLUCERNA SHAKE 237 ML CAN PO SCH (20:34)
[2021-02-14] MEDS ORDERED: HALOPERIDOL LACT 5 MG/ML INJ IV ONE (23:53)
[2021-02-15] MEDS ORDERED: NA CHLORIDE 0.9% 250 ML ONE (01:52)
[2021-02-15] MEDS ORDERED: KCL 20 MEQ/100 mL IVPB 20 MEQ/100 ML BAG IV SCH (02:00)
[2021-02-15 04:35] LABS: ALT/SGPT 31 U/L (12-78); Albumin 2.4 g/dL (3.4-5.0); Alkaline Phosphatase 61 U/L (45-117); BUN Blood Urea Nitrogen 23 mg/dL (7-18); Bicarbonate 30 mmol/L (21-32); Bilirubin Total 0.7 mg/dL (0.2-1.0); Glucose Level 214 mg/dL (74-106); Protein, Total 6.7 g/dL (6.4-8.2); Sodium Level 147 mmol/L (136-145)
[2021-02-15 04:47] LABS: AST/SGOT 40 U/L (15-37); Potassium 4.3 mmol/L (3.5-5.1)
[2021-02-15] MEDS ORDERED: WATER FOR INJ,STERILE 10 ML IM PRN ×2 (06:28→14:23)
[2021-02-15] MEDS ORDERED: ZIPRASIDONE MESYLA 20 MG/VIAL IM ONE ×2 (06:28→06:56)
--- NOTE | 2021-02-15 07:21 | RAD REPORT ---
EXAM DESCRIPTION: RAD - Chest Single View - 02/15/2021 5:17 am CLINICAL HISTORY: Pneumonia COMPARISON: February 11 TECHNIQUE: AP portable chest image was obtained 02/15/2021 5:17 am . FINDINGS: Lung volumes are substantially lower than the comparison. This accentuates the lung parenc hymal pattern. Left apex remains well aerated. When adjusting for the substantially lower lung volume , lung parenchymal disease is probably not significantly different. No improvement is suspected. Heart and vasculature are normal. No measurable pleural effusion and no pneumothorax. No acute bony abnormality seen. No acute aortic findings suspected. IMPRESSION: Limited shallow inspiration film shows bilateral lung parenchymal disease consistent wit h pneumonia history. When adjusting for the shallow inspiration affects, lung parenchymal disease has probably not changed significantly since February 11.
[2021-02-15] MEDS: INSULIN -REGULAR HUMAN 50 UNIT/0.5 ML ML SQ SCH ×4 (07:43→20:14)
[2021-02-15] MEDS: ASCORBIC ACID 500 MG TABLET PO SCH ×4 (07:44→20:14)
[2021-02-15] MEDS: FAMOTIDINE 20 MG TAB PO SCH (07:44)
[2021-02-15] MEDS: THIAMINE HCL 100 MG TABLET PO SCH ×2 (07:44→20:14)
[2021-02-15] MEDS: ZINC SULFATE 220 MG CAP PO SCH (07:44)
[2021-02-15] MEDS: ASPIRIN EC 81 MG TAB PO SCH (07:44)
[2021-02-15] MEDS: VITAMIN D 1000 UNIT TAB PO SCH (07:44)
[2021-02-15] MEDS: GLUCERNA SHAKE 237 ML CAN PO SCH ×2 (07:45→20:17)
[2021-02-15] MEDS: BARICITINIB 2 MG TABLET PO SCH (07:45)
[2021-02-15] MEDS: METHYLPREDNISOLONE 125 MG INJ IV SCH ×3 (07:45→20:14)
--- NOTE | 2021-02-15 14:19 | P.PN ---
Subjective Date of Service: 02/15/21 Primary Care Provider: Dr. Sommer in [place] Chief Complaint: covid pneumonia Patient confused and agitated last night. His agitation did not respond to IV Haldol. Patient given IV Geodon this morning. He is now placed on high-flow oxygen. Physical Examination - Vital Signs Temperature: 97.6 F Blood Pressure: 120/64 Pulse: 119 Respirations: 28 Pulse Ox (%): 90 - Physical Exam General: Confused HEENT: Other (BiPAP) Respiratory: Other (Mildly labored breathing) Cardiovascular: Normal S1 S2 (Tachycardia) Gastrointestinal: Soft and benign, Non-distended Musculoskeletal: No swelling Integumentary: No rashes Neurological: Other (No focal motor deficit) Assessment And Plan - Current Problems (Diagnosis) (1) Acute respiratory failure with hypoxia Current Visit: Yes Status: Acute (2) Diabetes mellitus Current Visit: Yes Status: Acute (3) Pneumonia due to COVID-19 virus Current Visit: Yes Status: Acute - Plan Continue IV steroid, vitamin supplementation. Zinc supplementation Continue Baracitinib started on 02/12. Currently on high-flow oxygen Patient with hemoglobin A1c of 11. Manage blood sugar with insulin sliding scale and Lantus insulin. Patient started on Xarelto for DVT prophylaxis. Geodon IM for agitation. Titrate oxygen.
[2021-02-15] MEDS: INSULIN GLARGINE 100 UNITS/ML SQ SCH (16:21)
[2021-02-15] MEDS: RIVAROXABAN 20 MG TABLET PO SCH (16:22)
[2021-02-15] MEDS: ZIPRASIDONE MESYLA 20 MG/VIAL IM PRN (18:03)
[2021-02-15] MEDS: MELATONIN 5 MG TABLET PO SCH (20:14)
[2021-02-16] MEDS: ZIPRASIDONE MESYLA 20 MG/VIAL IM PRN ×2 (01:15→14:48)
[2021-02-16] MEDS ORDERED: WATER FOR INJ,STERILE 10 ML ONE (01:36)
[2021-02-16 03:44] LABS: Absolute Lymphocytes (CBC) 0.3 K/uL (0.7-4.9); Basophils % 0.3 % (0-1.3); Hematocrit 41.5 % (39.6-49.0); Lymphocytes % 3.8 % (15.3-44.8); MPV 8.8 fL (7.6-11.3); RBC Red Blood Cell Count 4.22 M/uL (4.33-5.43)
[2021-02-16 04:16] LABS: ALT/SGPT 33 U/L (12-78); AST/SGOT 24 U/L (15-37); Albumin 2.6 g/dL (3.4-5.0); Alkaline Phosphatase 66 U/L (45-117); BUN Blood Urea Nitrogen 21 mg/dL (7-18); Bicarbonate 31 mmol/L (21-32); Bilirubin Total 0.6 mg/dL (0.2-1.0); Ferritin 1102.7 ng/mL (26-388); Glucose Level 239 mg/dL (74-106); Potassium 3.8 mmol/L (3.5-5.1); Sodium Level 146 mmol/L (136-145)
[2021-02-16] MEDS ORDERED: KCL 20 MEQ/100 mL IVPB 20 MEQ/100 ML BAG IV SCH (05:00)
[2021-02-16] MEDS ORDERED: NA CHLORIDE 0.9% 250 ML ONE (06:00)
[2021-02-16] MEDS: GLUCERNA SHAKE 237 ML CAN PO SCH ×2 (09:00→21:00)
[2021-02-16] MEDS: VITAMIN D 1000 UNIT TAB PO SCH (09:17)
[2021-02-16] MEDS: THIAMINE HCL 100 MG TABLET PO SCH ×2 (09:19→21:18)
[2021-02-16] MEDS: ASPIRIN EC 81 MG TAB PO SCH (09:19)
[2021-02-16] MEDS: ASCORBIC ACID 500 MG TABLET PO SCH ×4 (09:20→21:18)
[2021-02-16] MEDS: ZINC SULFATE 220 MG CAP PO SCH (09:23)
[2021-02-16] MEDS: METHYLPREDNISOLONE 125 MG INJ IV SCH ×3 (09:23→21:16)
[2021-02-16] MEDS: BARICITINIB 2 MG TABLET PO SCH (09:23)
[2021-02-16] MEDS: INSULIN -REGULAR HUMAN 50 UNIT/0.5 ML ML SQ SCH ×4 (09:40→21:17)
[2021-02-16] MEDS: FAMOTIDINE 20 MG TAB PO SCH (10:39)
--- NOTE | 2021-02-16 13:14 | P.PN ---
Subjective Date of Service: 02/16/21 Primary Care Provider: Dr. Sommer in [place] Chief Complaint: covid pneumonia Subjective: Improving (feels slightly better, still requiring high levels of O2) Review of Systems 10-point ROS is otherwise unremarkable Physical Examination - Vital Signs Temperature: 97.1 F Blood Pressure: 138/87 Pulse: 114 Respirations: 24 Pulse Ox (%): 91 Assessment & Plan Physician Review Additional Text: Physical Exam General: AAOx2, NAD HEENT: normal conjunctiva Respiratory: Mildly labored breathing, on HFNC Cardiovascular: sinus tachycardia, no edema Gastrointestinal: Soft and benign, Non-distended Integumentary: No rashes Problem list Acute hypoxemic respiratory failure secondary to COVID-19 pneumonia Diabetes mellitus, type II, non-insulin dependent Acute metabolic encephalopathy, secondary to COVID-19 vs dementia component continue IV steroid, vitamin supplementation. Zinc supplementation Continue Baracitinib started on 02/12. Currently on high-flow oxygen Patient with hemoglobin A1c of 11. Manage blood sugar with insulin sliding scale and Lantus insulin. continue to titrate Patient started on Xarelto for DVT prophylaxis. Geodon IM for agitation. Titrate oxygen. mentation improved Dispo: anticipate dc home with O2, likely ini 5-7 days Time Spent Managing Pts Care (In Minutes): 35
[2021-02-16] MEDS: RIVAROXABAN 20 MG TABLET PO SCH (17:21)
[2021-02-16] MEDS: INSULIN GLARGINE 100 UNITS/ML SQ SCH (17:21)
[2021-02-16] MEDS: MELATONIN 5 MG TABLET PO SCH (21:16)
[2021-02-17 04:44] LABS: Absolute Lymphocytes (CBC) 0.2 K/uL (0.7-4.9); Basophils % 0.1 % (0-1.3); Lymphocytes % 2.2 % (15.3-44.8); MPV 8.8 fL (7.6-11.3); RBC Red Blood Cell Count 4.17 M/uL (4.33-5.43)
[2021-02-17 04:54] LABS: ALT/SGPT 40 U/L (12-78); AST/SGOT 34 U/L (15-37); Albumin 2.5 g/dL (3.4-5.0); Alkaline Phosphatase 65 U/L (45-117); BUN Blood Urea Nitrogen 20 mg/dL (7-18); Bicarbonate 33 mmol/L (21-32); Bilirubin Total 0.6 mg/dL (0.2-1.0); Glucose Level 107 mg/dL (74-106); Potassium 3.8 mmol/L (3.5-5.1); Protein, Total 6.5 g/dL (6.4-8.2); Sodium Level 147 mmol/L (136-145)
[2021-02-17 05:26] LABS: Blood Morphology Comment NOT SEEN (NOT SEEN); Platelet Estimate ADEQ
--- NOTE | 2021-02-17 06:15 | P.PN ---
Subjective Date of Service: 02/17/21 Primary Care Provider: Dr. Sommer in [place] Chief Complaint: covid pneumonia Subjective: Improving (Feeling better today, inflammatory markers improved, still requiring some levels of high flow oxygen, 40/100%. feels like he needs to have a BM but difficult to do in bed) Review of Systems 10-point ROS is otherwise unremarkable Physical Examination - Vital Signs Temperature: 97.8 F Blood Pressure: 143/85 Pulse: 94 Respirations: 22 Pulse Ox (%): 88 Assessment & Plan Physician Review Additional Text: Physical Exam General: AAOx2, NAD HEENT: normal conjunctiva Respiratory: Mildly labored breathing, on HFNC Cardiovascular: sinus tachycardia, no edema Gastrointestinal: Soft and benign, Non-distended Integumentary: No rashes Problem list Acute hypoxemic respiratory failure secondary to COVID-19 pneumonia Diabetes mellitus, type II, non-insulin dependent Acute metabolic encephalopathy, secondary to COVID-19 vs dementia component Constipation continue IV steroid, vitamin supplementation. Zinc supplementation Continue Baracitinib started on 02/12. Currently on high-flow oxygen Patient with hemoglobin A1c of 11 Manage blood sugar with insulin sliding scale and Lantus insulin. continue to titrate Xarelto for DVT prophylaxis. Geodon IM for agitation. Titrate oxygen. mentation improved Patient reports some constipation, start Colace, 1 dose of MiraLAX, and as needed Dispo: anticipate dc home with O2, likely in ~5 days Time Spent Managing Pts Care (In Minutes): 40
[2021-02-17] MEDS: BARICITINIB 2 MG TABLET PO SCH (08:25)
[2021-02-17] MEDS: ASCORBIC ACID 500 MG TABLET PO SCH ×4 (08:26→22:31)
[2021-02-17] MEDS: THIAMINE HCL 100 MG TABLET PO SCH ×2 (08:26→22:31)
[2021-02-17] MEDS: VITAMIN D 1000 UNIT TAB PO SCH (08:26)
[2021-02-17] MEDS: METHYLPREDNISOLONE 125 MG INJ IV SCH ×3 (08:26→22:32)
[2021-02-17] MEDS: ZINC SULFATE 220 MG CAP PO SCH (08:26)
[2021-02-17] MEDS: ASPIRIN EC 81 MG TAB PO SCH (08:39)
[2021-02-17] MEDS: FAMOTIDINE 20 MG TAB PO SCH (08:43)
[2021-02-17] MEDS ORDERED: POTASSIUM CL SA 10 MEQ TAB PO ONE (09:00)
[2021-02-17] MEDS: GLUCERNA SHAKE 237 ML CAN PO SCH ×2 (09:00→21:00)
[2021-02-17] MEDS: INSULIN -REGULAR HUMAN 50 UNIT/0.5 ML ML SQ SCH ×4 (09:05→22:32)
[2021-02-17] MEDS: MELATONIN 5 MG TABLET PO SCH (10:30)
[2021-02-17] MEDS: ZIPRASIDONE MESYLA 20 MG/VIAL IM PRN (10:59)
[2021-02-17] MEDS: INSULIN GLARGINE 100 UNITS/ML SQ SCH (16:38)
[2021-02-17] MEDS: RIVAROXABAN 20 MG TABLET PO SCH (16:38)
[2021-02-17] MEDS ORDERED: POLYETHYL GLY 3350 17 GM/DOSE PO PRN (16:52)
[2021-02-17] MEDS ORDERED: POLYETHYL GLY 3350 17 GM/DOSE PO ONE (17:00)
[2021-02-17] MEDS: DOCUSATE NA 100 MG CAP PO SCH (22:31)
[2021-02-18 03:42] LABS: Absolute Lymphocytes (CBC) 0.2 K/uL (0.7-4.9); Basophils % 0.1 % (0-1.3); Hematocrit 39.7 % (39.6-49.0); MPV 9.1 fL (7.6-11.3); RBC Red Blood Cell Count 4.01 M/uL (4.33-5.43)
[2021-02-18 03:56] LABS: ALT/SGPT 35 U/L (12-78); AST/SGOT 22 U/L (15-37); Albumin 2.3 g/dL (3.4-5.0); Alkaline Phosphatase 63 U/L (45-117); BUN Blood Urea Nitrogen 19 mg/dL (7-18); Bicarbonate 35 mmol/L (21-32); Bilirubin Total 0.6 mg/dL (0.2-1.0); C-Reactive Protein 6.88 mg/L (<3.00); Glucose Level 132 mg/dL (74-106); Potassium 4.1 mmol/L (3.5-5.1); Protein, Total 5.9 g/dL (6.4-8.2); Sodium Level 143 mmol/L (136-145)
--- NOTE | 2021-02-18 06:11 | P.PN ---
Subjective Date of Service: 02/18/21 Primary Care Provider: Dr. Sommer in [place] Chief Complaint: covid pneumonia Subjective: No new changes (Patient reports feeling a little bit better, overnight was difficult to arouse/wake, did not sleep well the day prior. This morning he is awake and alert. Feels he is breathing little bit more comfortably. No BM yesterday, +flatus) Review of Systems 10-point ROS is otherwise unremarkable Physical Examination - Vital Signs Temperature: 96.9 F Blood Pressure: 120/69 Pulse: 89 Respirations: 18 Pulse Ox (%): 95 Assessment & Plan Physician Review Additional Text: Physical Exam General: AAOx2, NAD HEENT: normal conjunctiva Respiratory: Mildly labored breathing, on HFNC Cardiovascular: sinus tachycardia, no edema Gastrointestinal: Soft and benign, Non-distended Integumentary: No rashes Problem list Acute hypoxemic respiratory failure secondary to COVID-19 pneumonia Diabetes mellitus, type II, non-insulin dependent Acute metabolic encephalopathy, secondary to COVID-19 vs dementia component Constipation continue steroids, vitamin supplementation. Zinc supplementation Continue Baracitinib started on 02/12. Currently on high-flow oxygen Patient with hemoglobin A1c of 11 Manage blood sugar with insulin sliding scale and Lantus insulin. continue to titrate Xarelto for DVT prophylaxis. Geodon IM for agitation. Titrate oxygen. mentation improved Start Colace and MiraLAX on 02/17, continue MiraLAX as needed Dispo: anticipate dc home with O2, likely in ~5 days Time Spent Managing Pts Care (In Minutes): 35
[2021-02-18] MEDS: INSULIN -REGULAR HUMAN 50 UNIT/0.5 ML ML SQ SCH ×4 (07:30→20:20)
[2021-02-18] MEDS: GLUCERNA SHAKE 237 ML CAN PO SCH ×2 (09:00→20:22)
[2021-02-18] MEDS: THIAMINE HCL 100 MG TABLET PO SCH ×2 (09:08→20:20)
[2021-02-18] MEDS: VITAMIN D 1000 UNIT TAB PO SCH (09:08)
[2021-02-18] MEDS: ASPIRIN EC 81 MG TAB PO SCH (09:08)
[2021-02-18] MEDS: ASCORBIC ACID 500 MG TABLET PO SCH ×4 (09:08→20:20)
[2021-02-18] MEDS: METHYLPREDNISOLONE 125 MG INJ IV SCH ×3 (09:09→20:20)
[2021-02-18] MEDS: FAMOTIDINE 20 MG TAB PO SCH (09:09)
[2021-02-18] MEDS: BARICITINIB 2 MG TABLET PO SCH (09:14)
[2021-02-18] MEDS: ZINC SULFATE 220 MG CAP PO SCH (09:16)
[2021-02-18] MEDS: DOCUSATE NA 100 MG CAP PO SCH ×2 (10:13→20:20)
[2021-02-18] MEDS: RIVAROXABAN 20 MG TABLET PO SCH (17:07)
[2021-02-18] MEDS: INSULIN GLARGINE 100 UNITS/ML SQ SCH (17:07)
[2021-02-18] MEDS ORDERED: BISACODYL 10 MG RECTAL SUPP PR ONE (18:00)
[2021-02-18] MEDS: MELATONIN 5 MG TABLET PO SCH (20:20)
[2021-02-19 06:05] LABS: Absolute Lymphocytes (CBC) 0.2 K/uL (0.7-4.9); Basophils % 0.1 % (0-1.3); Lymphocytes % 1.5 % (15.3-44.8); MPV 8.9 fL (7.6-11.3); RBC Red Blood Cell Count 4.18 M/uL (4.33-5.43)
[2021-02-19 06:18] LABS: ALT/SGPT 46 U/L (12-78); AST/SGOT 25 U/L (15-37); Albumin 2.3 g/dL (3.4-5.0); Alkaline Phosphatase 65 U/L (45-117); BUN Blood Urea Nitrogen 17 mg/dL (7-18); Bicarbonate 35 mmol/L (21-32); Bilirubin Total 0.7 mg/dL (0.2-1.0); Glucose Level 71 mg/dL (74-106); Protein, Total 5.7 g/dL (6.4-8.2); Sodium Level 143 mmol/L (136-145)
--- NOTE | 2021-02-19 07:03 | P.PN ---
Subjective Date of Service: 02/19/21 Primary Care Provider: Dr. Sommer in [place] Chief Complaint: covid pneumonia Subjective: Improving (Had BM yesterday, feels he is breathing more comfortably today. Still requiring high levels of oxygen) Review of Systems 10-point ROS is otherwise unremarkable Physical Examination - Vital Signs Temperature: 96.9 F Blood Pressure: 113/70 Pulse: 92 Respirations: 18 Pulse Ox (%): 96 Assessment & Plan Physician Review Additional Text: Physical Exam General: AAOx2, NAD HEENT: normal conjunctiva Respiratory: Mildly labored breathing, on HFNC Cardiovascular: Regular rate and rhythm, no edema Gastrointestinal: Soft and benign, Non-distended Integumentary: No rashes Problem list Acute hypoxemic respiratory failure secondary to COVID-19 pneumonia Diabetes mellitus, type II, non-insulin dependent Acute metabolic encephalopathy, secondary to COVID-19 vs dementia component Hypertension Constipation continue steroids, vitamin supplementation. Zinc supplementation Continue Baracitinib started on 02/12. Currently on high-flow oxygen Patient with hemoglobin A1c of 11 Manage blood sugar with insulin sliding scale and Lantus insulin. lower dose tonight Xarelto for DVT prophylaxis. Geodon IM for agitation. Titrate oxygen. mentation improved Started Colace and MiraLAX on 02/17, continue MiraLAX as needed Dispo: anticipate dc home with O2, likely in ~5-6 days Time Spent Managing Pts Care (In Minutes): 40
[2021-02-19] MEDS: INSULIN -REGULAR HUMAN 50 UNIT/0.5 ML ML SQ SCH ×4 (07:30→19:46)
[2021-02-19] MEDS: VITAMIN D 1000 UNIT TAB PO SCH (08:33)
[2021-02-19] MEDS: ASPIRIN EC 81 MG TAB PO SCH (08:33)
[2021-02-19] MEDS: ZINC SULFATE 220 MG CAP PO SCH (08:34)
[2021-02-19] MEDS: ASCORBIC ACID 500 MG TABLET PO SCH ×4 (08:34→19:45)
[2021-02-19] MEDS: METHYLPREDNISOLONE 125 MG INJ IV SCH ×2 (08:34→12:29)
[2021-02-19] MEDS: DOCUSATE NA 100 MG CAP PO SCH ×2 (08:34→19:45)
[2021-02-19] MEDS: FAMOTIDINE 20 MG TAB PO SCH (08:35)
[2021-02-19] MEDS: BARICITINIB 2 MG TABLET PO SCH (08:35)
[2021-02-19] MEDS: THIAMINE HCL 100 MG TABLET PO SCH ×2 (08:35→19:46)
[2021-02-19] MEDS: GLUCERNA SHAKE 237 ML CAN PO SCH ×2 (08:37→19:52)
--- NOTE | 2021-02-19 12:58 | P.PN ---
Subjective Date of Service: 02/19/21 Primary Care Provider: Dr. Sommer in [place] Chief Complaint: covid pneumonia May be some improvement still requiring high concentrations of oxygen Review of Systems General: Weakness Respiratory: Shortness of Breath Physical Examination - Vital Signs Temperature: 98.1 F Blood Pressure: 168/93 Pulse: 106 Respirations: 22 Pulse Ox (%): 97 - Physical Exam General: Alert, Oriented x3, Cooperative Assessment & Plan - Problems (Diagnosis) (1) Pneumonia due to COVID-19 virus Current Visit: Yes Status: Acute Plan: Respiratory failure blood pressure still elevated labs reviewed reduce dose of steroids continue with Barcitinib 1 dose of Lasix
--- NOTE | 2021-02-19 13:56 | RAD REPORT ---
EXAM DESCRIPTION: [place] Single View02/19/2021 1:37 pm CLINICAL HISTORY: Respiratory failure COMPARISON: February 15, 2021 FINDINGS: Bilateral pulmonary opacities have partially resolved The heart is normal size IMPRESSION: Partial resolution in the bilateral pulmonary opacities
[2021-02-19] MEDS ORDERED: FUROSEMIDE 20 MG/ 2ML VIAL IV ONE (14:00)
[2021-02-19] MEDS: RIVAROXABAN 20 MG TABLET PO SCH (16:40)
[2021-02-19] MEDS: INSULIN GLARGINE 100 UNITS/ML SQ SCH (16:41)
[2021-02-19] MEDS: MELATONIN 5 MG TABLET PO SCH (19:45)
[2021-02-19] MEDS: METHYLPREDNISOLONE 40 MG INJ IV SCH (19:46)
--- NOTE | 2021-02-20 06:05 | P.PN ---
Subjective Date of Service: 02/20/21 Primary Care Provider: Dr. Sommer in [place] Chief Complaint: covid pneumonia Subjective: Improving (BM yesterday) Review of Systems 10-point ROS is otherwise unremarkable Physical Examination - Vital Signs Temperature: 97 F Blood Pressure: 117/63 Pulse: 82 Respirations: 20 Pulse Ox (%): 90 Assessment & Plan Physician Review Additional Text: Physical Exam General: AAOx2, NAD HEENT: normal conjunctiva Respiratory: non-labored breathing, on HFNC Cardiovascular: Regular rate and rhythm, no edema Gastrointestinal: Soft and benign, Non-distended Integumentary: No rashes Problem list Acute hypoxemic respiratory failure secondary to COVID-19 pneumonia Diabetes mellitus, type II, non-insulin dependent Acute metabolic encephalopathy, secondary to COVID-19 vs dementia component Hypertension Constipation continue steroids, vitamin supplementation. Zinc supplementation Continue Baracitinib started on 02/12. Currently on high-flow oxygen Patient with hemoglobin A1c of 11 Manage blood sugar with insulin sliding scale and Lantus insulin. Xarelto for DVT prophylaxis. Geodon IM for agitation. Titrate oxygen. mentation improved Started Colace and MiraLAX on 02/17, continue MiraLAX as needed Dispo: anticipate dc home with O2, likely in ~5-6 days Time Spent Managing Pts Care (In Minutes): 35
[2021-02-20 06:47] LABS: Absolute Lymphocytes (CBC) 0.2 K/uL (0.7-4.9); Basophils % 0.2 % (0-1.3); Hematocrit 42.5 % (39.6-49.0); Lymphocytes % 1.3 % (15.3-44.8); MPV 9.2 fL (7.6-11.3); RBC Red Blood Cell Count 4.28 M/uL (4.33-5.43)
[2021-02-20 07:00] LABS: ALT/SGPT 34 U/L (12-78); AST/SGOT 22 U/L (15-37); Albumin 2.2 g/dL (3.4-5.0); Alkaline Phosphatase 65 U/L (45-117); BUN Blood Urea Nitrogen 21 mg/dL (7-18); Bicarbonate 36 mmol/L (21-32); Bilirubin Total 0.6 mg/dL (0.2-1.0); Ferritin 860.4 ng/mL (26-388); Glucose Level 81 mg/dL (74-106); Potassium 3.8 mmol/L (3.5-5.1); Protein, Total 5.8 g/dL (6.4-8.2); Sodium Level 141 mmol/L (136-145)
[2021-02-20] MEDS: INSULIN -REGULAR HUMAN 50 UNIT/0.5 ML ML SQ SCH ×4 (07:30→21:19)
[2021-02-20] MEDS: BARICITINIB 2 MG TABLET PO SCH (07:59)
[2021-02-20] MEDS: ZINC SULFATE 220 MG CAP PO SCH (08:00)
[2021-02-20] MEDS: ASPIRIN EC 81 MG TAB PO SCH (08:00)
[2021-02-20] MEDS: METHYLPREDNISOLONE 40 MG INJ IV SCH ×2 (08:00→21:07)
[2021-02-20] MEDS: DOCUSATE NA 100 MG CAP PO SCH ×2 (08:00→21:06)
[2021-02-20] MEDS: VITAMIN D 1000 UNIT TAB PO SCH (08:00)
[2021-02-20] MEDS: THIAMINE HCL 100 MG TABLET PO SCH ×2 (08:00→21:07)
[2021-02-20] MEDS: TAMSULOSIN 0.4 MG SR CAP PO SCH (08:01)
[2021-02-20] MEDS: FAMOTIDINE 20 MG TAB PO SCH (08:01)
[2021-02-20] MEDS: ASCORBIC ACID 500 MG TABLET PO SCH ×4 (08:01→21:06)
[2021-02-20] MEDS: GLUCERNA SHAKE 237 ML CAN PO SCH ×2 (08:02→21:00)
[2021-02-20] MEDS: METOPROLOL XL 25 MG TAB PO SCH (08:03)
--- NOTE | 2021-02-20 12:35 | P.PN ---
Subjective Date of Service: 02/20/21 Primary Care Provider: Dr. Sommer in [place] Chief Complaint: covid pneumonia Respiratory failure patient is improving Review of Systems Respiratory: Shortness of Breath Physical Examination - Vital Signs Temperature: 98.1 F Blood Pressure: 100/59 Pulse: 61 Respirations: 22 Pulse Ox (%): 90 - Physical Exam General: Alert, Oriented x2, Cooperative Assessment & Plan - Problems (Diagnosis) (1) Pneumonia due to COVID-19 virus Current Visit: Yes Status: Acute Plan: Respiratory failure patient is improving still on high flow oxygen
[2021-02-20] MEDS: FENOFIBRATE 160 MG TAB PO SCH (13:09)
[2021-02-20] MEDS: INSULIN GLARGINE 100 UNITS/ML SQ SCH (17:09)
[2021-02-20] MEDS: RIVAROXABAN 20 MG TABLET PO SCH (17:09)
[2021-02-20] MEDS: MELATONIN 5 MG TABLET PO SCH (21:06)
[2021-02-21 05:55] LABS: Hematocrit 42.6 % (39.6-49.0); MPV 9.4 fL (7.6-11.3); RBC Red Blood Cell Count 4.26 M/uL (4.33-5.43)
[2021-02-21 06:21] LABS: ALT/SGPT 40 U/L (12-78); AST/SGOT 22 U/L (15-37); Albumin 2.1 g/dL (3.4-5.0); Alkaline Phosphatase 66 U/L (45-117); BUN Blood Urea Nitrogen 18 mg/dL (7-18); Bicarbonate 38 mmol/L (21-32); Bilirubin Total 0.5 mg/dL (0.2-1.0); Glucose Level 71 mg/dL (74-106); Potassium 4.3 mmol/L (3.5-5.1); Protein, Total 5.6 g/dL (6.4-8.2); Sodium Level 143 mmol/L (136-145)
--- NOTE | 2021-02-21 06:35 | P.PN ---
Subjective Date of Service: 02/21/21 Primary Care Provider: Dr. Sommer in [place] Chief Complaint: covid pneumonia Subjective: Improving Review of Systems 10-point ROS is otherwise unremarkable Physical Examination - Vital Signs Temperature: 97.5 F Blood Pressure: 110/72 Pulse: 93 Respirations: 18 Pulse Ox (%): 96 Assessment & Plan Physician Review Additional Text: Physical Exam General: AAOx2, NAD HEENT: normal conjunctiva Respiratory: non-labored breathing, on HFNC Cardiovascular: Regular rate and rhythm, no edema Gastrointestinal: Soft and benign, Non-distended Integumentary: No rashes Problem list Acute hypoxemic respiratory failure secondary to COVID-19 pneumonia Diabetes mellitus, type II, non-insulin dependent Acute metabolic encephalopathy, secondary to COVID-19 vs dementia component Hypertension Constipation Improving, steroids reduced on 02/19 continue steroids, vitamin supplementation. Zinc supplementation Continue Baracitinib started on 02/12. Currently on high-flow oxygen Patient with hemoglobin A1c of 11 Borderline hypoglycemic in the mornings over the last 2 days, since steroids reduced, reduce Lantus Xarelto for DVT prophylaxis. [place] IM for agitation. Titrate oxygen. mentation improved Started Colace and MiraLAX on 02/17, continue MiraLAX as needed Dispo: anticipate dc home with O2, likely in ~5 days Time Spent Managing Pts Care (In Minutes): 40
[2021-02-21] MEDS: INSULIN -REGULAR HUMAN 50 UNIT/0.5 ML ML SQ SCH ×4 (07:30→20:34)
[2021-02-21] MEDS: VITAMIN D 1000 UNIT TAB PO SCH (09:00)
[2021-02-21] MEDS: ASCORBIC ACID 500 MG TABLET PO SCH ×4 (09:00→20:35)
[2021-02-21] MEDS: TAMSULOSIN 0.4 MG SR CAP PO SCH (09:00)
[2021-02-21] MEDS: ZINC SULFATE 220 MG CAP PO SCH (09:00)
[2021-02-21] MEDS: FENOFIBRATE 160 MG TAB PO SCH (09:00)
[2021-02-21] MEDS: GLUCERNA SHAKE 237 ML CAN PO SCH ×2 (09:00→20:35)
[2021-02-21] MEDS: FAMOTIDINE 20 MG TAB PO SCH (09:00)
[2021-02-21] MEDS: ASPIRIN EC 81 MG TAB PO SCH (09:00)
[2021-02-21] MEDS: DOCUSATE NA 100 MG CAP PO SCH ×2 (09:00→20:34)
[2021-02-21] MEDS: METHYLPREDNISOLONE 40 MG INJ IV SCH ×2 (09:00→20:35)
[2021-02-21] MEDS: THIAMINE HCL 100 MG TABLET PO SCH ×2 (09:00→20:35)
[2021-02-21] MEDS: METOPROLOL XL 25 MG TAB PO SCH (09:00)
[2021-02-21] MEDS: BARICITINIB 2 MG TABLET PO SCH (09:00)
[2021-02-21] MEDS: INSULIN GLARGINE 100 UNITS/ML SQ SCH (16:16)
[2021-02-21] MEDS: RIVAROXABAN 20 MG TABLET PO SCH (16:17)
[2021-02-21] MEDS: MELATONIN 5 MG TABLET PO SCH (20:35)
[2021-02-22 05:04] LABS: Hematocrit 41.8 % (39.6-49.0); RBC Red Blood Cell Count 4.17 M/uL (4.33-5.43)
[2021-02-22 05:31] LABS: ALT/SGPT 38 U/L (12-78); AST/SGOT 19 U/L (15-37); Albumin 2.1 g/dL (3.4-5.0); Alkaline Phosphatase 68 U/L (45-117); BUN Blood Urea Nitrogen 18 mg/dL (7-18); Bicarbonate 36 mmol/L (21-32); Bilirubin Total 0.6 mg/dL (0.2-1.0); Ferritin 928.6 ng/mL (26-388); Glucose Level 214 mg/dL (74-106); Potassium 4.5 mmol/L (3.5-5.1); Protein, Total 5.8 g/dL (6.4-8.2); Sodium Level 139 mmol/L (136-145)
--- NOTE | 2021-02-22 06:29 | P.PN ---
Subjective Date of Service: 02/22/21 Primary Care Provider: Dr. Sommer in [place] Chief Complaint: covid pneumonia Subjective: Improving (Breathing more comfortably, oxygen weaning down. Patient has been having daily bowel movements, however still states he feels bloated. Inflammatory markers about the same.) Review of Systems 10-point ROS is otherwise unremarkable Physical Examination - Vital Signs Temperature: 96.5 F Blood Pressure: 110/62 Pulse: 96 Respirations: 18 Pulse Ox (%): 96 Assessment & Plan Physician Review Additional Text: Physical Exam General: AAOx2, NAD, +mild confusion HEENT: normal conjunctiva Respiratory: non-labored breathing, on HFNC Cardiovascular: Regular rate and rhythm, no edema Gastrointestinal: Soft and benign, Non-distended Integumentary: No rashes Problem list Acute hypoxemic respiratory failure secondary to COVID-19 pneumonia Diabetes mellitus, type II, non-insulin dependent Acute metabolic encephalopathy, secondary to COVID-19 vs dementia component Hypertension Constipation Improving, steroids reduced on 02/19 from 80 TID to 40 BID by pulm continue steroids, vitamin supplementation. Continue Baracitinib started on 02/12. Currently on high-flow oxygen Patient with hemoglobin A1c of 11 Borderline hypoglycemic in the mornings over the last 2 days, since steroids reduced, reduce Lantus Xarelto for DVT prophylaxis. Geodon IM for agitation. Titrate oxygen. mentation improved, still has some mild confusion / dementia, pleasant Started Colace and MiraLAX on 02/17, continue MiraLAX check KUB to eval stool burden vs air - pt may be swallowing air Dispo: anticipate dc home with O2, likely in ~5-6 days Time Spent Managing Pts Care (In Minutes): 30
[2021-02-22] MEDS: INSULIN -REGULAR HUMAN 50 UNIT/0.5 ML ML SQ SCH ×5 (07:30→21:09)
[2021-02-22] MEDS: VITAMIN D 1000 UNIT TAB PO SCH (09:00)
[2021-02-22] MEDS: METHYLPREDNISOLONE 40 MG INJ IV SCH ×2 (09:00→21:09)
[2021-02-22] MEDS: THIAMINE HCL 100 MG TABLET PO SCH ×2 (09:00→21:09)
[2021-02-22] MEDS: GLUCERNA SHAKE 237 ML CAN PO SCH ×2 (09:00→21:10)
[2021-02-22] MEDS: FAMOTIDINE 20 MG TAB PO SCH (09:19)
[2021-02-22] MEDS: FENOFIBRATE 160 MG TAB PO SCH (09:19)
[2021-02-22] MEDS: DOCUSATE NA 100 MG CAP PO SCH ×2 (09:19→21:09)
[2021-02-22] MEDS: BARICITINIB 2 MG TABLET PO SCH (09:19)
[2021-02-22] MEDS: ASPIRIN EC 81 MG TAB PO SCH (09:19)
[2021-02-22] MEDS: TAMSULOSIN 0.4 MG SR CAP PO SCH (09:19)
[2021-02-22] MEDS: ZINC SULFATE 220 MG CAP PO SCH (09:28)
[2021-02-22] MEDS: METOPROLOL XL 25 MG TAB PO SCH (09:28)
[2021-02-22] MEDS: ASCORBIC ACID 500 MG TABLET PO SCH ×4 (09:28→21:09)
[2021-02-22] MEDS: POLYETHYL GLY 3350 17 GM/DOSE PO SCH (15:00)
[2021-02-22] MEDS: RIVAROXABAN 20 MG TABLET PO SCH (16:22)
[2021-02-22] MEDS: INSULIN GLARGINE 100 UNITS/ML SQ SCH (16:23)
--- NOTE | 2021-02-22 18:47 | RAD REPORT ---
EXAM DESCRIPTION: RAD - Abdomen 1 View (KUB) - 02/22/2021 6:36 pm CLINICAL HISTORY: Feels bloated, eval stool burden vs gas Pain COMPARISON: No comparisons FINDINGS: Moderate stool burden is seen throughout the colon. No suspicious calcifications. No significant bony findings. IMPRESSION: Moderate constipation pattern.
[2021-02-22] MEDS: MELATONIN 5 MG TABLET PO SCH (21:09)
[2021-02-23 04:29] LABS: Hematocrit 42.4 % (39.6-49.0); MPV 9.2 fL (7.6-11.3); RBC Red Blood Cell Count 4.24 M/uL (4.33-5.43)
[2021-02-23 05:20] LABS: ALT/SGPT 31 U/L (12-78); AST/SGOT 17 U/L (15-37); Alkaline Phosphatase 67 U/L (45-117); BUN Blood Urea Nitrogen 21 mg/dL (7-18); Bicarbonate 35 mmol/L (21-32); Bilirubin Total 0.5 mg/dL (0.2-1.0); Ferritin 940.7 ng/mL (26-388); Glucose Level 188 mg/dL (74-106); Potassium 4.1 mmol/L (3.5-5.1); Protein, Total 5.9 g/dL (6.4-8.2); Sodium Level 140 mmol/L (136-145)
[2021-02-23] MEDS: GLUCERNA SHAKE 237 ML CAN PO SCH ×2 (09:00→21:12)
[2021-02-23] MEDS: INSULIN -REGULAR HUMAN 50 UNIT/0.5 ML ML SQ SCH ×4 (09:26→21:14)
[2021-02-23] MEDS: ZINC SULFATE 220 MG CAP PO SCH (09:27)
[2021-02-23] MEDS: ASCORBIC ACID 500 MG TABLET PO SCH ×4 (09:27→21:13)
[2021-02-23] MEDS: VITAMIN D 1000 UNIT TAB PO SCH (09:27)
[2021-02-23] MEDS: FENOFIBRATE 160 MG TAB PO SCH (09:27)
[2021-02-23] MEDS: ASPIRIN EC 81 MG TAB PO SCH (09:27)
[2021-02-23] MEDS: THIAMINE HCL 100 MG TABLET PO SCH ×2 (09:27→21:13)
[2021-02-23] MEDS: BARICITINIB 2 MG TABLET PO SCH (09:28)
[2021-02-23] MEDS: FAMOTIDINE 20 MG TAB PO SCH (09:28)
[2021-02-23] MEDS: TAMSULOSIN 0.4 MG SR CAP PO SCH (09:28)
[2021-02-23] MEDS: DOCUSATE NA 100 MG CAP PO SCH ×2 (09:28→21:13)
[2021-02-23] MEDS: METOPROLOL XL 25 MG TAB PO SCH (09:28)
[2021-02-23] MEDS: POLYETHYL GLY 3350 17 GM/DOSE PO SCH (09:28)
[2021-02-23] MEDS: METHYLPREDNISOLONE 40 MG INJ IV SCH ×2 (09:29→21:13)
--- NOTE | 2021-02-23 16:32 | P.PN ---
Subjective Date of Service: 02/23/21 Primary Care Provider: Dr. Sommer in [place] Chief Complaint: covid pneumonia Patient is calm and tolerating high-flow oxygen. He has no new complain. Physical Examination - Vital Signs Temperature: 98.7 F Blood Pressure: 115/66 Pulse: 91 Respirations: 23 Pulse Ox (%): 92 - Physical Exam General: In no apparent distress, Confused HEENT: Mucous membr. moist/pink Neck: JVD not distended Respiratory: Other (Nonlabored breathing) Cardiovascular: Regular rate/rhythm, Normal S1 S2 Gastrointestinal: Soft and benign, Non-distended Musculoskeletal: No swelling Integumentary: No rashes Neurological: Other (No focal motor deficit) Assessment And Plan - Current Problems (Diagnosis) (1) Acute respiratory failure with hypoxia Current Visit: Yes Status: Acute (2) Diabetes mellitus Current Visit: Yes Status: Acute (3) Pneumonia due to COVID-19 virus Current Visit: Yes Status: Acute Physician Review Additional Text: Problem list Acute hypoxemic respiratory failure secondary to COVID-19 pneumonia Diabetes mellitus, type II, non-insulin dependent Acute metabolic encephalopathy, secondary to COVID-19 vs dementia component Hypertension Constipation Improving slowly. Continue current dose steroid, vitamin supplementation. Continue Baracitinib started on 02/12. Currently on high-flow oxygen Patient with hemoglobin A1c of 11 Continue current dose Lantus. Xarelto for DVT prophylaxis. Geodon IM for agitation. Wean oxygen as tolerated.
[2021-02-23] MEDS: RIVAROXABAN 20 MG TABLET PO SCH (17:43)
[2021-02-23] MEDS: INSULIN GLARGINE 100 UNITS/ML SQ SCH (17:43)
[2021-02-23] MEDS: MELATONIN 5 MG TABLET PO SCH (21:13)
[2021-02-24 03:55] LABS: ALT/SGPT 25 U/L (12-78); AST/SGOT 15 U/L (15-37); Alkaline Phosphatase 66 U/L (45-117); BUN Blood Urea Nitrogen 23 mg/dL (7-18); Bicarbonate 36 mmol/L (21-32); Bilirubin Total 0.4 mg/dL (0.2-1.0); Glucose Level 154 mg/dL (74-106); Potassium 4.5 mmol/L (3.5-5.1); Protein, Total 5.8 g/dL (6.4-8.2); Sodium Level 141 mmol/L (136-145)
[2021-02-24] MEDS: INSULIN -REGULAR HUMAN 50 UNIT/0.5 ML ML SQ SCH ×4 (07:30→21:00)
[2021-02-24] MEDS: POLYETHYL GLY 3350 17 GM/DOSE PO SCH (09:00)
[2021-02-24] MEDS: ASPIRIN EC 81 MG TAB PO SCH (09:00)
[2021-02-24] MEDS: METHYLPREDNISOLONE 40 MG INJ IV SCH ×2 (09:00→21:00)
[2021-02-24] MEDS: FENOFIBRATE 160 MG TAB PO SCH (09:00)
[2021-02-24] MEDS: ASCORBIC ACID 500 MG TABLET PO SCH ×4 (09:00→21:00)
[2021-02-24] MEDS: VITAMIN D 1000 UNIT TAB PO SCH (09:00)
[2021-02-24] MEDS: ZINC SULFATE 220 MG CAP PO SCH (09:00)
[2021-02-24] MEDS: FAMOTIDINE 20 MG TAB PO SCH (09:00)
[2021-02-24] MEDS: GLUCERNA SHAKE 237 ML CAN PO SCH ×2 (09:00→21:00)
[2021-02-24] MEDS: DOCUSATE NA 100 MG CAP PO SCH ×2 (09:00→21:00)
[2021-02-24] MEDS: TAMSULOSIN 0.4 MG SR CAP PO SCH (09:00)
[2021-02-24] MEDS: THIAMINE HCL 100 MG TABLET PO SCH ×2 (09:00→21:00)
--- NOTE | 2021-02-24 13:23 | P.PN ---
Subjective Date of Service: 02/24/21 Primary Care Provider: Dr. Sommer in [place] Chief Complaint: covid pneumonia Improving O2 requiement declining Review of Systems General: Weakness Respiratory: Shortness of Breath Physical Examination - Vital Signs Temperature: 97.7 F Blood Pressure: 120/76 Pulse: 95 Respirations: 18 Pulse Ox (%): 94 - Physical Exam General: Alert, Oriented x3, Cooperative Assessment & Plan - Problems (Diagnosis) (1) Pneumonia due to COVID-19 virus Current Visit: Yes Status: Acute Plan: Improving labs and medsreviewed
--- NOTE | 2021-02-24 16:12 | P.PN ---
Subjective Date of Service: 02/24/21 Primary Care Provider: Dr. Sommer in [place] Chief Complaint: covid pneumonia No changes from yesterday. Patient maintained on high-flow oxygen. Flow rate increased today Physical Examination - Vital Signs Temperature: 97.7 F Blood Pressure: 120/76 Pulse: 95 Respirations: 18 Pulse Ox (%): 94 - Physical Exam General: Alert, In no apparent distress Neck: JVD not distended Respiratory: Other (Nonlabored breathing) Cardiovascular: Regular rate/rhythm, Normal S1 S2 Gastrointestinal: Soft and benign, Non-distended Musculoskeletal: No swelling Integumentary: No rashes Neurological: Normal strength at 5/5 x4 extr Assessment And Plan - Current Problems (Diagnosis) (1) Acute respiratory failure with hypoxia Current Visit: Yes Status: Acute (2) Diabetes mellitus Current Visit: Yes Status: Acute (3) Pneumonia due to COVID-19 virus Current Visit: Yes Status: Acute - Plan Continue IV steroid, vitamin supplementation. Zinc supplementation Continue Baracitinib started on 02/12. Currently on high-flow oxygen Patient with hemoglobin A1c of 11. Manage blood sugar with insulin sliding scale and Lantus insulin. Patient started on Xarelto for DVT prophylaxis. Geodon IM for agitation. Titrate oxygen. Physician Review Additional Text: Problem list Acute hypoxemic respiratory failure secondary to COVID-19 pneumonia Diabetes mellitus, type II, non-insulin dependent Acute metabolic encephalopathy, secondary to COVID-19 vs dementia component Hypertension Constipation Improving slowly. Continue current dose steroid, vitamin supplementation. Continue Baracitinib started on 02/12. Currently on high-flow oxygen Patient with hemoglobin A1c of 11 Continue current dose Lantus. Xarelto for DVT prophylaxis. Patient has not needed medication for agitation since family member has pain on his bedside. Wean oxygen as tolerated.
[2021-02-24] MEDS: BARICITINIB 2 MG TABLET PO SCH (17:56)
[2021-02-24] MEDS: INSULIN GLARGINE 100 UNITS/ML SQ SCH (17:57)
[2021-02-24] MEDS: RIVAROXABAN 20 MG TABLET PO SCH (18:01)
[2021-02-24] MEDS: MELATONIN 5 MG TABLET PO SCH (21:00)
[2021-02-25 04:28] LABS: ALT/SGPT 25 U/L (12-78); AST/SGOT 15 U/L (15-37); Albumin 2.1 g/dL (3.4-5.0); Alkaline Phosphatase 63 U/L (45-117); BUN Blood Urea Nitrogen 23 mg/dL (7-18); Bicarbonate 36 mmol/L (21-32); Bilirubin Total 0.4 mg/dL (0.2-1.0); Glucose Level 207 mg/dL (74-106); Potassium 4.3 mmol/L (3.5-5.1); Protein, Total 5.9 g/dL (6.4-8.2); Sodium Level 141 mmol/L (136-145)
[2021-02-25] MEDS: INSULIN -REGULAR HUMAN 50 UNIT/0.5 ML ML SQ SCH ×4 (07:30→20:01)
[2021-02-25] MEDS: GLUCERNA SHAKE 237 ML CAN PO SCH ×2 (09:00→19:52)
[2021-02-25] MEDS: BARICITINIB 2 MG TABLET PO SCH (09:00)
[2021-02-25] MEDS: VITAMIN D 1000 UNIT TAB PO SCH (10:40)
[2021-02-25] MEDS: POLYETHYL GLY 3350 17 GM/DOSE PO SCH (10:45)
[2021-02-25] MEDS: ZINC SULFATE 220 MG CAP PO SCH (10:45)
[2021-02-25] MEDS: METHYLPREDNISOLONE 40 MG INJ IV SCH ×2 (10:45→19:53)
[2021-02-25] MEDS: ASPIRIN EC 81 MG TAB PO SCH (10:45)
[2021-02-25] MEDS: TAMSULOSIN 0.4 MG SR CAP PO SCH (10:46)
[2021-02-25] MEDS: ASCORBIC ACID 500 MG TABLET PO SCH ×4 (10:46→19:53)
[2021-02-25] MEDS: THIAMINE HCL 100 MG TABLET PO SCH ×2 (10:46→19:53)
[2021-02-25] MEDS: FENOFIBRATE 160 MG TAB PO SCH (10:46)
[2021-02-25] MEDS: FAMOTIDINE 20 MG TAB PO SCH (10:46)
[2021-02-25] MEDS: DOCUSATE NA 100 MG CAP PO SCH ×2 (10:46→19:53)
[2021-02-25] MEDS ORDERED: NYSTATIN PWDR 100000 UNIT/GM TOP PRN (15:09)
--- NOTE | 2021-02-25 16:16 | P.PN ---
Subjective Date of Service: 02/25/21 Primary Care Provider: Dr. Sommer in [place] Chief Complaint: covid pneumonia No issues overnight. Patient is confused Patient maintained on high-flow oxygen. Flow rate decreasing slowly. Physical Examination - Vital Signs Temperature: 98.8 F Blood Pressure: 104/70 Pulse: 94 Respirations: 20 Pulse Ox (%): 94 - Physical Exam General: In no apparent distress, Confused Neck: JVD not distended Respiratory: Other (Nonlabored breathing) Cardiovascular: Regular rate/rhythm, Normal S1 S2 Gastrointestinal: Soft and benign, Non-distended Musculoskeletal: No swelling Integumentary: No rashes Neurological: Other (No focal motor deficit) Assessment And Plan - Current Problems (Diagnosis) (1) Acute respiratory failure with hypoxia Current Visit: Yes Status: Acute (2) Diabetes mellitus Current Visit: Yes Status: Acute (3) Pneumonia due to COVID-19 virus Current Visit: Yes Status: Acute Physician Review Additional Text: Problem list Acute hypoxemic respiratory failure secondary to COVID-19 pneumonia Diabetes mellitus, type II, non-insulin dependent Acute metabolic encephalopathy, secondary to COVID-19 vs dementia component Hypertension Constipation Improving slowly. Continue current dose steroid, vitamin supplementation. Completed Baracitinib started on 02/12. Currently on high-flow oxygen Continue current dose Lantus. Xarelto for DVT prophylaxis. Patient has not needed medication for agitation since family member has pain on his bedside. Wean oxygen as tolerated.
[2021-02-25] MEDS: INSULIN GLARGINE 100 UNITS/ML SQ SCH (16:54)
[2021-02-25] MEDS: RIVAROXABAN 20 MG TABLET PO SCH (16:54)
[2021-02-25] MEDS: MELATONIN 5 MG TABLET PO SCH (19:53)
[2021-02-26 04:51] LABS: Absolute Lymphocytes (CBC) 0.3 K/uL (0.7-4.9); Basophils % 0.4 % (0-1.3); Hematocrit 41.2 % (39.6-49.0); Lymphocytes % 2.4 % (15.3-44.8); MPV 8.8 fL (7.6-11.3); RBC Red Blood Cell Count 4.13 M/uL (4.33-5.43)
[2021-02-26 05:09] LABS: ALT/SGPT 27 U/L (12-78); AST/SGOT 11 U/L (15-37); Albumin 2.1 g/dL (3.4-5.0); Alkaline Phosphatase 63 U/L (45-117); BUN Blood Urea Nitrogen 26 mg/dL (7-18); Bicarbonate 35 mmol/L (21-32); Bilirubin Total 0.5 mg/dL (0.2-1.0); Glucose Level 192 mg/dL (74-106); Potassium 4.4 mmol/L (3.5-5.1); Protein, Total 5.8 g/dL (6.4-8.2); Sodium Level 141 mmol/L (136-145)
[2021-02-26 06:54] VITALS: BMI 27.3
[2021-02-26] MEDS: INSULIN -REGULAR HUMAN 50 UNIT/0.5 ML ML SQ SCH ×4 (07:30→21:00)
[2021-02-26] MEDS: TAMSULOSIN 0.4 MG SR CAP PO SCH ×2 (08:30→08:31)
[2021-02-26] MEDS: METHYLPREDNISOLONE 40 MG INJ IV SCH ×2 (08:30→21:00)
[2021-02-26] MEDS: ASPIRIN EC 81 MG TAB PO SCH (08:30)
[2021-02-26] MEDS: ASCORBIC ACID 500 MG TABLET PO SCH ×4 (08:31→21:31)
[2021-02-26] MEDS: POLYETHYL GLY 3350 17 GM/DOSE PO SCH (08:31)
[2021-02-26] MEDS: DOCUSATE NA 100 MG CAP PO SCH ×2 (08:31→21:31)
[2021-02-26] MEDS: FAMOTIDINE 20 MG TAB PO SCH (08:31)
[2021-02-26] MEDS: THIAMINE HCL 100 MG TABLET PO SCH ×2 (08:31→21:31)
[2021-02-26] MEDS: ZINC SULFATE 220 MG CAP PO SCH (08:31)
[2021-02-26] MEDS: GLUCERNA SHAKE 237 ML CAN PO SCH ×2 (08:33→21:00)
[2021-02-26] MEDS: FENOFIBRATE 160 MG TAB PO SCH (08:39)
[2021-02-26] MEDS: VITAMIN D 1000 UNIT TAB PO SCH (08:39)
--- NOTE | 2021-02-26 12:28 | P.PN ---
Subjective Date of Service: 02/26/21 Primary Care Provider: Dr. Sommer in [place] Chief Complaint: covid pneumonia Improving oxygen levels declining no new complaints at the bedside Review of Systems is unable to be obtained Physical Examination - Vital Signs Temperature: 97.8 F Blood Pressure: 107/72 Pulse: 103 Respirations: 18 Pulse Ox (%): 88 Assessment & Plan - Problems (Diagnosis) (1) Pneumonia due to COVID-19 virus Current Visit: Yes Status: Acute Plan: Improving oxygen levels declining currently on high flow FiO2 45% sat around 89% continue with present therapy
--- NOTE | 2021-02-26 16:27 | P.PN ---
Subjective Date of Service: 02/26/21 Primary Care Provider: Dr. Sommer in [place] Chief Complaint: covid pneumonia No issues overnight. Patient is confused Patient maintained on high-flow oxygen. Wean FiO2 and flow rate slowly. Physical Examination - Vital Signs Temperature: 97.8 F Blood Pressure: 107/72 Pulse: 103 Respirations: 18 Pulse Ox (%): 88 - Physical Exam General: In no apparent distress, Confused Respiratory: Other (Nonlabored breathing) Cardiovascular: No edema, Regular rate/rhythm, Normal S1 S2 Gastrointestinal: Soft and benign, Non-distended Musculoskeletal: No swelling Integumentary: No rashes Neurological: Normal strength at 5/5 x4 extr Assessment And Plan - Current Problems (Diagnosis) (1) Acute respiratory failure with hypoxia Current Visit: Yes Status: Acute (2) Diabetes mellitus Current Visit: Yes Status: Acute (3) Pneumonia due to COVID-19 virus Current Visit: Yes Status: Acute Physician Review Additional Text: Problem list Acute hypoxemic respiratory failure secondary to COVID-19 pneumonia Diabetes mellitus, type II, non-insulin dependent Acute metabolic encephalopathy, secondary to COVID-19 vs dementia component Hypertension Constipation Improving slowly. Continue current dose steroid, vitamin supplementation. Completed Baracitinib. Currently on high-flow oxygen Continue current dose Lantus. Xarelto for DVT prophylaxis. Continue to wean oxygen.
[2021-02-26] MEDS: INSULIN GLARGINE 100 UNITS/ML SQ SCH (17:00)
[2021-02-26] MEDS: RIVAROXABAN 20 MG TABLET PO SCH (17:15)
[2021-02-26] MEDS: MELATONIN 5 MG TABLET PO SCH (21:31)
[2021-02-27] MEDS: INSULIN -REGULAR HUMAN 50 UNIT/0.5 ML ML SQ SCH ×4 (07:30→21:22)
--- NOTE | 2021-02-27 08:23 | RAD REPORT ---
EXAM DESCRIPTION: RAD - Chest Single View - 02/27/2021 6:46 am CLINICAL HISTORY: Coronavirus pneumonia COMPARISON: Abdomen 1 View (KUB) dated 02/22/2021; Chest Single View dated 02/19/2021; Chest Single View dated 02/15/2021; Chest Single View dated 02/11/2021 FINDINGS: Lines: None. Lungs: Moderate bilateral airspace disease similar to 02/19/2021. Pleural: Difficult to exclude small pleural effusions. Cardiac: Mild cardiomegaly appear Bones: No acute fractures. Other: IMPRESSION: Similar moderate bilateral airspace disease compared with 02/19/2021.
[2021-02-27] MEDS: VITAMIN D 1000 UNIT TAB PO SCH (08:53)
[2021-02-27] MEDS: ASPIRIN EC 81 MG TAB PO SCH (08:53)
[2021-02-27] MEDS: METHYLPREDNISOLONE 40 MG INJ IV SCH ×2 (08:53→21:23)
[2021-02-27] MEDS: POLYETHYL GLY 3350 17 GM/DOSE PO SCH (08:53)
[2021-02-27] MEDS: FAMOTIDINE 20 MG TAB PO SCH (08:53)
[2021-02-27] MEDS: DOCUSATE NA 100 MG CAP PO SCH ×2 (08:53→21:23)
[2021-02-27] MEDS: ZINC SULFATE 220 MG CAP PO SCH (08:54)
[2021-02-27] MEDS: ASCORBIC ACID 500 MG TABLET PO SCH ×4 (08:54→21:24)
[2021-02-27] MEDS: THIAMINE HCL 100 MG TABLET PO SCH ×2 (08:54→21:23)
[2021-02-27] MEDS: GLUCERNA SHAKE 237 ML CAN PO SCH ×2 (09:00→21:33)
--- NOTE | 2021-02-27 14:29 | P.PN ---
Subjective Date of Service: 02/27/21 Primary Care Provider: Dr. Sommer in [place] Chief Complaint: covid pneumonia No new changes Patient remain on high-flow oxygen. Physical Examination - Vital Signs Temperature: 97.4 F Blood Pressure: 104/56 Pulse: 110 Respirations: 18 Pulse Ox (%): 96 - Physical Exam General: In no apparent distress, Other (Awake) Neck: JVD not distended Respiratory: Other (Nonlabored breathing) Cardiovascular: Regular rate/rhythm, Normal S1 S2 Gastrointestinal: Soft and benign, Non-distended Musculoskeletal: No swelling Integumentary: No rashes Neurological: Other (No focal motor deficits) Assessment And Plan - Current Problems (Diagnosis) (1) Acute respiratory failure with hypoxia Current Visit: Yes Status: Acute (2) Diabetes mellitus Current Visit: Yes Status: Acute (3) Pneumonia due to COVID-19 virus Current Visit: Yes Status: Acute Physician Review Additional Text: Problem list Acute hypoxemic respiratory failure secondary to COVID-19 pneumonia Diabetes mellitus, type II, non-insulin dependent Acute metabolic encephalopathy, secondary to COVID-19 vs dementia component Hypertension Constipation Stable on the high-flow oxygen Continue current dose steroid, vitamin supplementation. Completed Baracitinib. Currently on high-flow oxygen Continue current dose Lantus. Xarelto for DVT prophylaxis. Continue to wean oxygen.
[2021-02-27] MEDS: INSULIN GLARGINE 100 UNITS/ML SQ SCH (16:27)
[2021-02-27] MEDS: RIVAROXABAN 20 MG TABLET PO SCH (16:27)
[2021-02-27] MEDS: MELATONIN 5 MG TABLET PO SCH (21:23)
[2021-02-28] MEDS: GLUCERNA SHAKE 237 ML CAN PO SCH ×2 (09:00→21:00)
[2021-02-28] MEDS: POLYETHYL GLY 3350 17 GM/DOSE PO SCH (09:00)
[2021-02-28] MEDS: ASPIRIN EC 81 MG TAB PO SCH (10:21)
[2021-02-28] MEDS: INSULIN -REGULAR HUMAN 50 UNIT/0.5 ML ML SQ SCH ×4 (10:21→21:42)
[2021-02-28] MEDS: THIAMINE HCL 100 MG TABLET PO SCH ×2 (10:22→21:36)
[2021-02-28] MEDS: ZINC SULFATE 220 MG CAP PO SCH (10:22)
[2021-02-28] MEDS: ASCORBIC ACID 500 MG TABLET PO SCH ×4 (10:22→21:36)
[2021-02-28] MEDS: TAMSULOSIN 0.4 MG SR CAP PO SCH (10:22)
[2021-02-28] MEDS: DOCUSATE NA 100 MG CAP PO SCH ×2 (10:22→21:00)
[2021-02-28] MEDS: FENOFIBRATE 160 MG TAB PO SCH (10:22)
[2021-02-28] MEDS: FAMOTIDINE 20 MG TAB PO SCH (10:22)
[2021-02-28] MEDS: METHYLPREDNISOLONE 40 MG INJ IV SCH ×2 (10:30→21:36)
[2021-02-28] MEDS: VITAMIN D 1000 UNIT TAB PO SCH (10:30)
--- NOTE | 2021-02-28 12:23 | P.PN ---
Subjective Date of Service: 02/28/21 Primary Care Provider: Dr. Sommer in [place] Chief Complaint: covid pneumonia No new changes. Patient lying comfortably in bed Patient remain on high-flow oxygen. Physical Examination - Vital Signs Temperature: 98.1 F Blood Pressure: 107/67 Pulse: 99 Respirations: 18 Pulse Ox (%): 94 - Physical Exam General: Alert, In no apparent distress Respiratory: Other (Nonlabored breathing) Cardiovascular: No edema, Regular rate/rhythm Gastrointestinal: Soft and benign, Non-distended Musculoskeletal: No swelling Integumentary: No rashes Neurological: Normal strength at 5/5 x4 extr Assessment And Plan - Current Problems (Diagnosis) (1) Acute respiratory failure with hypoxia Current Visit: Yes Status: Acute (2) Diabetes mellitus Current Visit: Yes Status: Acute (3) Pneumonia due to COVID-19 virus Current Visit: Yes Status: Acute Physician Review Additional Text: Problem list Acute hypoxemic respiratory failure secondary to COVID-19 pneumonia Diabetes mellitus, type II, non-insulin dependent Acute metabolic encephalopathy, secondary to COVID-19 vs dementia component Hypertension Constipation Stable on the high-flow oxygen Continue current dose steroid, vitamin supplementation. Completed Baracitinib. Continue current dose Lantus. Xarelto for DVT prophylaxis. Continue to wean oxygen. Wean from high-flow to oxygen by nasal cannula if possible.
[2021-02-28] MEDS: INSULIN GLARGINE 100 UNITS/ML SQ SCH (17:00)
[2021-02-28] MEDS: RIVAROXABAN 20 MG TABLET PO SCH (18:12)
[2021-02-28] MEDS: MELATONIN 5 MG TABLET PO SCH (21:35)
[2021-03-01] MEDS: INSULIN -REGULAR HUMAN 50 UNIT/0.5 ML ML SQ SCH ×4 (07:30→21:27)
[2021-03-01] MEDS: THIAMINE HCL 100 MG TABLET PO SCH ×2 (08:55→20:41)
[2021-03-01] MEDS: VITAMIN D 1000 UNIT TAB PO SCH (08:55)
[2021-03-01] MEDS: FENOFIBRATE 160 MG TAB PO SCH (08:55)
[2021-03-01] MEDS: ASPIRIN EC 81 MG TAB PO SCH (08:55)
[2021-03-01] MEDS: DOCUSATE NA 100 MG CAP PO SCH ×2 (08:55→20:41)
[2021-03-01] MEDS: POLYETHYL GLY 3350 17 GM/DOSE PO SCH (08:55)
[2021-03-01] MEDS: ASCORBIC ACID 500 MG TABLET PO SCH ×4 (08:56→20:41)
[2021-03-01] MEDS: TAMSULOSIN 0.4 MG SR CAP PO SCH (08:56)
[2021-03-01] MEDS: METHYLPREDNISOLONE 40 MG INJ IV SCH ×2 (08:56→20:41)
[2021-03-01] MEDS: FAMOTIDINE 20 MG TAB PO SCH (08:56)
[2021-03-01] MEDS: ZINC SULFATE 220 MG CAP PO SCH (08:56)
[2021-03-01] MEDS: GLUCERNA SHAKE 237 ML CAN PO SCH ×2 (09:00→21:00)
--- NOTE | 2021-03-01 16:24 | P.PN ---
Subjective Date of Service: 03/01/21 Primary Care Provider: Dr. Sommer in [place] Chief Complaint: covid pneumonia No new changes. Patient lying comfortably in bed No change in high-flow requirement over several days. Physical Examination - Vital Signs Temperature: 98.0 F Blood Pressure: 88/55 Pulse: 89 Respirations: 20 Pulse Ox (%): 94 - Physical Exam General: In no apparent distress, Oriented x2 HEENT: Mucous membr. moist/pink Neck: JVD not distended Respiratory: Crackles/rales (Bibasilar crackles), Other (Nonlabored breathing) Cardiovascular: No edema, Regular rate/rhythm, Normal S1 S2 Gastrointestinal: Soft and benign, Non-distended, No tenderness Musculoskeletal: No swelling Integumentary: No rashes Neurological: Other (No focal motor deficit) Assessment And Plan - Current Problems (Diagnosis) (1) Acute respiratory failure with hypoxia Current Visit: Yes Status: Acute (2) Diabetes mellitus Current Visit: Yes Status: Acute (3) Pneumonia due to COVID-19 virus Current Visit: Yes Status: Acute Physician Review Additional Text: Problem list Acute hypoxemic respiratory failure secondary to COVID-19 pneumonia Diabetes mellitus, type II, non-insulin dependent Acute metabolic encephalopathy, secondary to COVID-19 vs dementia component Hypertension Constipation Stable on the high-flow oxygen. Respiratory status has not changed for several days Continue current dose steroid, vitamin supplementation. Completed Baracitinib. Blood sugar seems to fluctuate. Titrate Lantus insulin. Xarelto for DVT prophylaxis. Continue to wean oxygen. Wean from high-flow to oxygen by nasal cannula if possible. PT.
[2021-03-01] MEDS: INSULIN GLARGINE 100 UNITS/ML SQ SCH (17:00)
[2021-03-01] MEDS: RIVAROXABAN 20 MG TABLET PO SCH (17:30)
[2021-03-01] MEDS: MELATONIN 5 MG TABLET PO SCH (20:40)
[2021-03-02 04:35] LABS: Absolute Lymphocytes (CBC) 0.3 K/uL (0.7-4.9); Basophils % 0.3 % (0-1.3); Hematocrit 41.4 % (39.6-49.0); Lymphocytes % 2.5 % (15.3-44.8); MPV 8.3 fL (7.6-11.3); RBC Red Blood Cell Count 4.11 M/uL (4.33-5.43)
[2021-03-02 04:51] LABS: BUN Blood Urea Nitrogen 29 mg/dL (7-18); Bicarbonate 34 mmol/L (21-32); Ferritin 885.8 ng/mL (26-388); Glucose Level 192 mg/dL (74-106); Potassium 4.6 mmol/L (3.5-5.1); Sodium Level 142 mmol/L (136-145)
[2021-03-02 05:27] LABS: Blood Morphology Comment NOT SEEN (NOT SEEN); Platelet Estimate ADEQ
--- NOTE | 2021-03-02 06:18 | P.PN ---
Subjective Date of Service: 03/02/21 Primary Care Provider: Dr. Sommer in [place] Chief Complaint: covid pneumonia Subjective: Improving (slowly improving, O2 weaning very slowly. no new complaints, appetite is good, voiding without issue, +BM yesterday) Review of Systems 10-point ROS is otherwise unremarkable Physical Examination - Vital Signs Temperature: 98.8 F Blood Pressure: 126/68 Pulse: 87 Respirations: 17 Pulse Ox (%): 96 Assessment & Plan Physician Review Additional Text: Physical Exam Gen: NAD, AAOx3 HEENT: normal conjunctiva, sclera anicteric CV: Regular rate/rhythm, no edema Pulm: nonlabored on HFNC Abd: soft, nontender, nondistended MSK: no joint swelling Problem list Acute hypoxemic respiratory failure secondary to COVID-19 pneumonia Diabetes mellitus, type II, non-insulin dependent Acute metabolic encephalopathy, secondary to COVID-19 vs dementia component Hypertension Constipation Stable on the high-flow oxygen. slowly improving Continue steroids, vitamin supplementation Completed Baracitinib. Blood sugar seems to fluctuate - worse in evening. Titrate Lantus Xarelto for DVT prophylaxis. Continue to wean oxygen. PT ordered, pt states has not gotten out of bed in many days, O2 improving Dispo: anticipate dc home, >3 days. prolonged hospitalization Time Spent Managing Pts Care (In Minutes): 35
[2021-03-02] MEDS: ASPIRIN EC 81 MG TAB PO SCH (08:35)
[2021-03-02] MEDS: FAMOTIDINE 20 MG TAB PO SCH (08:35)
[2021-03-02] MEDS: THIAMINE HCL 100 MG TABLET PO SCH ×2 (08:35→21:21)
[2021-03-02] MEDS: METHYLPREDNISOLONE 40 MG INJ IV SCH ×2 (08:35→21:22)
[2021-03-02] MEDS: DOCUSATE NA 100 MG CAP PO SCH ×2 (08:35→21:22)
[2021-03-02] MEDS: ZINC SULFATE 220 MG CAP PO SCH (08:35)
[2021-03-02] MEDS: FENOFIBRATE 160 MG TAB PO SCH (08:36)
[2021-03-02] MEDS: VITAMIN D 1000 UNIT TAB PO SCH (08:36)
[2021-03-02] MEDS: TAMSULOSIN 0.4 MG SR CAP PO SCH (08:36)
[2021-03-02] MEDS: INSULIN -REGULAR HUMAN 50 UNIT/0.5 ML ML SQ SCH ×4 (08:37→21:44)
[2021-03-02] MEDS: ASCORBIC ACID 500 MG TABLET PO SCH ×4 (08:44→21:22)
[2021-03-02] MEDS: POLYETHYL GLY 3350 17 GM/DOSE PO SCH (08:44)
[2021-03-02] MEDS: GLUCERNA SHAKE 237 ML CAN PO SCH ×2 (08:46→21:00)
[2021-03-02] MEDS: RIVAROXABAN 20 MG TABLET PO SCH (17:43)
[2021-03-02] MEDS: INSULIN GLARGINE 100 UNITS/ML SQ SCH (17:43)
[2021-03-02] MEDS: MELATONIN 5 MG TABLET PO SCH (21:21)
--- NOTE | 2021-03-03 06:35 | P.PN ---
Subjective Date of Service: 03/03/21 Primary Care Provider: Dr. Sommer in [place] Chief Complaint: covid pneumonia Subjective: Improving (Oxygen requirement decreasing, overall feeling better. Worked with physical therapy yesterday, felt very weak, little short of breath, and was complaining of vertigo. Has chronic vertigo. states he takes some pills for heart relief, sometimes uses a patch, she is unsure of the names of meds) Review of Systems 10-point ROS is otherwise unremarkable Physical Examination - Vital Signs Temperature: 97.1 F Blood Pressure: 123/68 Pulse: 94 Respirations: 14 Pulse Ox (%): 98 Assessment & Plan Physician Review Additional Text: Physical Exam Gen: NAD, AAOx3 HEENT: normal conjunctiva, sclera anicteric CV: Regular rate/rhythm, no edema Pulm: nonlabored on 10LNC Abd: soft, nontender, nondistended MSK: no joint swelling Problem list Acute hypoxemic respiratory failure secondary to COVID-19 pneumonia Diabetes mellitus, type II, non-insulin dependent Acute metabolic encephalopathy, secondary to COVID-19 vs dementia component Hypertension Chronic vertigo Constipation, resolved Oxygen requirement improving Continue steroids, vitamin supplementation Completed Baracitinib. Blood sugar seems to fluctuate. Titrate Lantus as needed Xarelto for DVT prophylaxis. Continue to wean oxygen. PT ordered, patient needing quite a bit of assistance, also with vertigo which inhibits his participation Meclizine ordered as needed Discussed briefly with patient and , if he is needing significant amount of assistance, he may be better suited to go to a SNF Patient not thrilled of the idea, wants to go home. A possibility if he can safely transfer Dispo: anticipate dc in ~2-3 days, possible home with HH/PT vs SNF Time Spent Managing Pts Care (In Minutes): 35
[2021-03-03] MEDS: GLUCERNA SHAKE 237 ML CAN PO SCH ×2 (09:00→21:00)
[2021-03-03] MEDS: INSULIN -REGULAR HUMAN 50 UNIT/0.5 ML ML SQ SCH ×4 (09:08→21:40)
[2021-03-03] MEDS: METHYLPREDNISOLONE 40 MG INJ IV SCH ×2 (09:10→21:18)
[2021-03-03] MEDS: VITAMIN D 1000 UNIT TAB PO SCH (09:12)
[2021-03-03] MEDS: FENOFIBRATE 160 MG TAB PO SCH (09:12)
[2021-03-03] MEDS: THIAMINE HCL 100 MG TABLET PO SCH ×2 (09:13→21:15)
[2021-03-03] MEDS: ASCORBIC ACID 500 MG TABLET PO SCH ×4 (09:13→21:15)
[2021-03-03] MEDS: TAMSULOSIN 0.4 MG SR CAP PO SCH (09:13)
[2021-03-03] MEDS: ZINC SULFATE 220 MG CAP PO SCH (09:13)
[2021-03-03] MEDS: FAMOTIDINE 20 MG TAB PO SCH (09:14)
[2021-03-03] MEDS: ASPIRIN EC 81 MG TAB PO SCH (09:22)
[2021-03-03] MEDS: POLYETHYL GLY 3350 17 GM/DOSE PO SCH (09:22)
[2021-03-03] MEDS: DOCUSATE NA 100 MG CAP PO SCH ×2 (09:22→21:16)
[2021-03-03] MEDS ORDERED: MECLIZINE HCL 12.5 MG TAB PO PRN (14:23)
[2021-03-03] MEDS: INSULIN GLARGINE 100 UNITS/ML SQ SCH (16:59)
[2021-03-03] MEDS: RIVAROXABAN 20 MG TABLET PO SCH (16:59)
[2021-03-03] MEDS: MELATONIN 5 MG TABLET PO SCH (21:16)
[2021-03-04 04:17] LABS: Hematocrit 37.5 % (39.6-49.0); MPV 8.7 fL (7.6-11.3); RBC Red Blood Cell Count 3.72 M/uL (4.33-5.43)
[2021-03-04] MEDS ORDERED: SODIUM CHLORIDE 0.9% 10ML INJ IV PRN (04:19)
[2021-03-04 04:31] LABS: BUN Blood Urea Nitrogen 29 mg/dL (7-18); Bicarbonate 33 mmol/L (21-32); Ferritin 696.3 ng/mL (26-388); Glucose Level 221 mg/dL (74-106); Potassium 4.7 mmol/L (3.5-5.1); Sodium Level 143 mmol/L (136-145)
[2021-03-04 04:32] LABS: C-Reactive Protein < 2.90 mg/L (<3.00)
[2021-03-04] MEDS: PANTOPRAZOLE 40 MG INJ IVP SCH ×2 (06:16→17:16)
--- NOTE | 2021-03-04 06:33 | P.PN ---
Subjective Date of Service: 03/04/21 Primary Care Provider: Dr. Sommer in [place] Chief Complaint: covid pneumonia Subjective: Improving (Oxygen requirement decreasing, patient feeling better. He does report some anal discomfort, overnight noted to have maroon-yuval stool. Patient reports history of hemorrhoids) Review of Systems 10-point ROS is otherwise unremarkable Physical Examination - Vital Signs Temperature: 97.3 F Blood Pressure: 123/74 Pulse: 96 Respirations: 22 Pulse Ox (%): 97 Assessment & Plan Physician Review Additional Text: Physical Exam Gen: NAD, AAOx3 HEENT: normal conjunctiva, sclera anicteric CV: Regular rate/rhythm, no edema Pulm: nonlabored on 8LNC Abd: soft, nontender, nondistended MSK: no joint swelling maroonish stool smear noted on pad, no external lacerations Problem list Acute hypoxemic respiratory failure secondary to COVID-19 pneumonia Diabetes mellitus, type II, non-insulin dependent Acute metabolic encephalopathy, secondary to COVID-19 vs dementia component Hypertension Chronic vertigo Constipation, resolved GI bleed Oxygen requirement improving Continue steroids, vitamin supplementation Completed Baracitinib. Blood sugar seems to fluctuate. Titrate Lantus as needed GI bleed noted overnight, Xarelto discontinued GI consulted, patient made n.p.o., started IV fluids, started IV Protonix twice daily If no procedure to be performed, can advance to clear liquid diet later for dinner Continue to wean oxygen. PT ordered, patient needing quite a bit of assistance, also with vertigo which inhibits his participation Meclizine ordered as needed Discussed with patient and , if he is needing significant amount of assistance, he may be better suited to go to a SNF Patient not thrilled of the idea, wants to go home. in agreement that he would benefit from SNF Dispo: anticipate dc in ~2-3 days, to SNF Time Spent Managing Pts Care (In Minutes): 35
[2021-03-04] MEDS: NA CHLORIDE 0.9% 1,000 ML IV SCH ×2 (07:00→20:34)
[2021-03-04] MEDS: ZINC SULFATE 220 MG CAP PO SCH (09:00)
[2021-03-04] MEDS: FENOFIBRATE 160 MG TAB PO SCH (09:00)
[2021-03-04] MEDS: THIAMINE HCL 100 MG TABLET PO SCH ×2 (09:00→20:36)
[2021-03-04] MEDS: TAMSULOSIN 0.4 MG SR CAP PO SCH (09:00)
[2021-03-04] MEDS: POLYETHYL GLY 3350 17 GM/DOSE PO SCH (09:00)
[2021-03-04] MEDS: GLUCERNA SHAKE 237 ML CAN PO SCH ×2 (09:00→20:37)
[2021-03-04] MEDS: ASCORBIC ACID 500 MG TABLET PO SCH ×5 (09:00→20:35)
[2021-03-04] MEDS: DOCUSATE NA 100 MG CAP PO SCH (09:00)
[2021-03-04] MEDS ORDERED: NA CHLORIDE 0.9% 1,000 ML ONE (10:04)
[2021-03-04] MEDS: METHYLPREDNISOLONE 40 MG INJ IV SCH ×2 (10:35→20:36)
[2021-03-04] MEDS: INSULIN -REGULAR HUMAN 50 UNIT/0.5 ML ML SQ SCH ×4 (10:36→21:44)
[2021-03-04 10:56] LABS: Hematocrit 39.1 % (39.6-49.0)
[2021-03-04 16:20] LABS: Hematocrit 37.3 % (39.6-49.0)
[2021-03-04] MEDS: INSULIN GLARGINE 100 UNITS/ML SQ SCH (17:16)
[2021-03-04] MEDS: MELATONIN 5 MG TABLET PO SCH (20:35)
[2021-03-05 04:50] LABS: Hematocrit 36.2 % (39.6-49.0); MPV 8.6 fL (7.6-11.3); RBC Red Blood Cell Count 3.55 M/uL (4.33-5.43)
[2021-03-05 05:03] LABS: ALT/SGPT 28 U/L (12-78); AST/SGOT 14 U/L (15-37); Albumin 2.1 g/dL (3.4-5.0); Alkaline Phosphatase 52 U/L (45-117); BUN Blood Urea Nitrogen 26 mg/dL (7-18); Bicarbonate 34 mmol/L (21-32); Bilirubin Total 0.3 mg/dL (0.2-1.0); Glucose Level 68 mg/dL (74-106); Magnesium 2.2 mg/dL (1.8-2.4); Potassium 4.2 mmol/L (3.5-5.1); Protein, Total 5.1 g/dL (6.4-8.2); Sodium Level 146 mmol/L (136-145)
--- NOTE | 2021-03-05 06:07 | P.PN ---
Subjective Date of Service: 03/05/21 Primary Care Provider: Dr. Sommer in [place] Chief Complaint: covid pneumonia Subjective: Worsening (Continues with some maroon-colored stool, hemoglobin slowly downtrending, overnight began to have diffuse abdominal pain, worse this morning. Patient states last BM was 3 days ago) Review of Systems 10-point ROS is otherwise unremarkable Physical Examination - Vital Signs Temperature: 97.3 F Blood Pressure: 103/52 Pulse: 78 Respirations: 19 Pulse Ox (%): 93 Assessment & Plan Physician Review Additional Text: Physical Exam Gen: NAD, AAOx3 HEENT: normal conjunctiva, sclera anicteric CV: Regular rate/rhythm, no edema Pulm: nonlabored on 6LNC Abd: soft, mild diffuse tenderness, non-distended MSK: no joint swelling Problem list Acute hypoxemic respiratory failure secondary to COVID-19 pneumonia Diabetes mellitus, type II, non-insulin dependent Acute metabolic encephalopathy, secondary to COVID-19 vs dementia component Hypertension Chronic vertigo Constipation GI bleed Oxygen requirement improving Continue steroids, vitamin supplementation. Completed Baracitinib. GI bleed, Xarelto discontinued GI consulted, patient made n.p.o., started IV fluids, started IV Protonix twice daily on 03/04 For possible EGD today Patient now having abdominal pain, no BM in a few days. Concern for constipation/obstruction We will obtain CT abdomen/pelvis. May need enema patient needing quite a bit of assistance, also with vertigo which inhibits his participation Meclizine ordered as needed Discussed with patient and , if he is needing significant amount of assistance, he may be better suited to go to a SNF Patient not thrilled of the idea, wants to go home. in agreement that he would benefit from SNF monitor H/H Dispo: anticipate dc in ~3 days, to SNF Time Spent Managing Pts Care (In Minutes): 35
[2021-03-05] MEDS: PANTOPRAZOLE 40 MG INJ IVP SCH ×2 (07:18→16:50)
[2021-03-05] MEDS: INSULIN -REGULAR HUMAN 50 UNIT/0.5 ML ML SQ SCH ×4 (07:30→21:23)
[2021-03-05] MEDS: GLUCERNA SHAKE 237 ML CAN PO SCH ×2 (09:00→21:00)
[2021-03-05] MEDS: DOCUSATE NA 100 MG CAP PO SCH ×3 (09:26→21:00)
[2021-03-05] MEDS: THIAMINE HCL 100 MG TABLET PO SCH ×2 (09:27→20:48)
[2021-03-05] MEDS: TAMSULOSIN 0.4 MG SR CAP PO SCH (09:27)
[2021-03-05] MEDS: METHYLPREDNISOLONE 40 MG INJ IV SCH ×2 (09:27→21:24)
[2021-03-05] MEDS: ASCORBIC ACID 500 MG TABLET PO SCH ×4 (09:27→20:48)
[2021-03-05] MEDS: POLYETHYL GLY 3350 17 GM/DOSE PO SCH (09:27)
[2021-03-05] MEDS: FENOFIBRATE 160 MG TAB PO SCH (09:27)
[2021-03-05] MEDS: VITAMIN D 1000 UNIT TAB PO SCH (09:27)
[2021-03-05] MEDS: ZINC SULFATE 220 MG CAP PO SCH (09:27)
[2021-03-05] MEDS: D5 0.45 NS 1,000 ML IV SCH (09:28)
--- NOTE | 2021-03-05 11:19 | RAD REPORT ---
EXAM DESCRIPTION: CT - Abdomen Pelvis W Contrast - 03/05/2021 10:40 am CLINICAL HISTORY: diffuse abd pain, GI bleed, COVID positive COMPARISON: Chest Single View dated 02/27/2021 TECHNIQUE: Biphasic, helical CT imaging of the abdomen and pelvis was performed following 100 ml non -ionic IV contrast. No oral contrast administered. All CT scans are performed using dose optimization technique as appropriate and may include automated exposure control or mA/KV adjustment according to patient size. FINDINGS: Interstitial and alveolar opacities are present in each lung base. Patient has a known COV ID pneumonia. No cardiomegaly or pericardial effusion. Liver size is normal. In segment V at the gallbladder fossa (image 20/107) there is a 2.3 centimeter rounded mass. Mass is peripherally enhancing with central hypodense structure. No other liver lesions are identifiable. Liver attenuation is borderline fatty infiltrated. The lesion is more isodense to the surrounding parenchyma on venous phase imaging. This could be an atypical appearing hemangioma. F ocal nodular hyperplasia or adenoma are possibilities. This does not appear to be an aggressive proce ss. Long-term significance is doubtful. Follow-up imaging could be obtained to monitor this finding. Spleen and pancreas show no suspicious findings. No gallbladder dilatation or gallbladder wall thicke josiah. A 5 millimeter gallstone is present. Additional gallstones could be occult. No duct stone or bi liary tree dilatation identifiable. Symmetric renal function is seen with no hydronephrosis or suspicious renal mass. No pyelonephritis o r acute parenchymal process. Patient has multiple benign renal cortical cysts. Largest is 5 cm. Most are 13 mm or less in size. No adrenal abnormalities. No urinary bladder abnormality. 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 No pelvic side wall or rectal wall i nvasion. Large stool volume dilates the rectum to 6.5 cm. Moderate stool volume is present filling but not dil ating the remainder of the colon. Sigmoid is redundant extending well into the upper right abdomen. N o colon mass suspected. No free air, free fluid or inflammatory stranding. No mass or bulky lymphadenopathy. Fat filled in guinal hernias are present. No suspicious bony findings. Patient has mild for age degenerative changes to the spine. IMPRESSION: Contrast enhanced CT abdomen and pelvis showing no acute or emergent finding. Rectum is dilated to 6.5 cm by stool. Moderate stool volume elsewhere in the colon. Sigmoid is quite redundant and tortuous extending to the upper right abdomen. A 2.3 centimeter rounded right lobe liver masses seen. Differential considerations detailed above. Ag gressive lesion is unlikely. Follow-up hepatic sonography in 6 months could be performed to monitor t his finding.
[2021-03-05] MEDS ORDERED: FLEET ENEMA ADULT PR ONE ×2 (16:00→18:00)
[2021-03-05] MEDS ORDERED: MORPHINE 2 MG/ML SYR IV PRN (16:03)
[2021-03-05] MEDS: INSULIN GLARGINE 100 UNITS/ML SQ SCH (17:58)
[2021-03-05] MEDS: MELATONIN 5 MG TABLET PO SCH (20:49)
[2021-03-06 04:32] LABS: Hematocrit 31.1 % (39.6-49.0); MPV 8.6 fL (7.6-11.3); RBC Red Blood Cell Count 3.08 M/uL (4.33-5.43)
[2021-03-06 04:53] LABS: ALT/SGPT 29 U/L (12-78); AST/SGOT 14 U/L (15-37); Albumin 1.9 g/dL (3.4-5.0); Alkaline Phosphatase 50 U/L (45-117); BUN Blood Urea Nitrogen 19 mg/dL (7-18); Bicarbonate 31 mmol/L (21-32); Bilirubin Total 0.3 mg/dL (0.2-1.0); Glucose Level 193 mg/dL (74-106); Magnesium 2.1 mg/dL (1.8-2.4); Potassium 4.3 mmol/L (3.5-5.1); Protein, Total 4.8 g/dL (6.4-8.2); Sodium Level 141 mmol/L (136-145)
[2021-03-06] MEDS: PANTOPRAZOLE 40 MG INJ IVP SCH ×2 (05:27→17:14)
[2021-03-06] MEDS: D5 0.45 NS 1,000 ML IV SCH (06:12)
--- NOTE | 2021-03-06 06:15 | P.PN ---
Subjective Date of Service: 03/06/21 Primary Care Provider: Dr. Sommer in [place] Chief Complaint: covid pneumonia Subjective: Improving (Feeling much better this morning, abdominal pain relieved after had large bowel movements after enemas overnight. Oxygen requirement down to 2 L nasal cannula. Patient still with generalized weakness. Still will more brown, still slight maroon) Review of Systems 10-point ROS is otherwise unremarkable Physical Examination - Vital Signs Temperature: 98.1 F Blood Pressure: 107/63 Pulse: 83 Respirations: 18 Pulse Ox (%): 96 Assessment & Plan Physician Review Additional Text: Physical Exam Gen: NAD, AAOx3 HEENT: normal conjunctiva, sclera anicteric CV: Regular rate/rhythm, no edema Pulm: nonlabored on 2LNC Abd: soft, nontender, nondistended MSK: no joint swelling Problem list Acute hypoxemic respiratory failure secondary to COVID-19 pneumonia Diabetes mellitus, type II, non-insulin dependent Acute metabolic encephalopathy, secondary to COVID-19 vs dementia component Hypertension Chronic vertigo Constipation GI bleed Oxygen requirement improving Continue steroids, vitamin supplementation. Completed Baracitinib. GI bleed, Xarelto discontinued GI consulted, started IV Protonix twice daily on 03/04 Initially plan for EGD, however then patient developed abdominal pain CT abdomen/pelvis consistent with significant constipation, dilated rectum Patient improved after enema Stool more brown, less maroon Suspect stercoral ulcer may be the cause of his GI bleeding Continue with bowel regimen, daily MiraLAX, Colace twice daily patient needing quite a bit of assistance, also with vertigo which inhibits his participation Meclizine ordered as needed Patient and family agreeable to SNF on discharge, given patient's weakness Dispo: anticipate dc in ~2-3 days, to SNF Time Spent Managing Pts Care (In Minutes): 35
--- NOTE | 2021-03-06 08:44 | RAD REPORT ---
EXAM DESCRIPTION: RAD - Abdomen 1 View (KUB) - 03/06/2021 6:58 am CLINICAL HISTORY: eval stool burden COMPARISON: Abdomen 1 View (KUB) dated ; Abdomen Pelvis W Contrast dated 03/05/2021 FINDINGS: Rectosigmoid stool volume has decreased significantly since the prior day CT study. Stool remains elsewhere in the colon without distending normal: Diameter. No free air or pneumatosis. No em ergent finding seen. Delete select IMPRESSION: Rectosigmoid stool volume has significantly improved. Additional stool remains throughout the remainder of the colon without distention.
[2021-03-06] MEDS: DOCUSATE NA 100 MG CAP PO SCH ×2 (08:53→21:30)
[2021-03-06] MEDS: VITAMIN D 1000 UNIT TAB PO SCH (08:53)
[2021-03-06] MEDS: FENOFIBRATE 160 MG TAB PO SCH (08:53)
[2021-03-06] MEDS: ASCORBIC ACID 500 MG TABLET PO SCH ×2 (08:53→08:54)
[2021-03-06] MEDS: TAMSULOSIN 0.4 MG SR CAP PO SCH (08:54)
[2021-03-06] MEDS: ZINC SULFATE 220 MG CAP PO SCH (08:54)
[2021-03-06] MEDS: THIAMINE HCL 100 MG TABLET PO SCH ×2 (08:54→21:30)
[2021-03-06] MEDS: GLUCERNA SHAKE 237 ML CAN PO SCH ×2 (08:54→21:00)
[2021-03-06] MEDS: POLYETHYL GLY 3350 17 GM/DOSE PO SCH (08:54)
[2021-03-06] MEDS: METHYLPREDNISOLONE 40 MG INJ IV SCH ×2 (08:56→21:30)
[2021-03-06] MEDS: INSULIN -REGULAR HUMAN 50 UNIT/0.5 ML ML SQ SCH ×4 (09:01→21:00)
[2021-03-06] MEDS: INSULIN GLARGINE 100 UNITS/ML SQ SCH (17:13)
[2021-03-06] MEDS: MAGNESIUM CITRATE 300 ML BOT PO SCH (17:14)
[2021-03-06] MEDS: GOLYTELY 4000 ML PO SCH (17:14)
[2021-03-06] MEDS: MELATONIN 5 MG TABLET PO SCH (21:30)
[2021-03-07 04:56] LABS: BUN Blood Urea Nitrogen 12 mg/dL (7-18); Bicarbonate 32 mmol/L (21-32); Ferritin 659.4 ng/mL (26-388); Glucose Level 118 mg/dL (74-106); Magnesium 2.2 mg/dL (1.8-2.4); Potassium 4.3 mmol/L (3.5-5.1); Sodium Level 142 mmol/L (136-145)
[2021-03-07 05:03] LABS: Hematocrit 33.7 % (39.6-49.0); MPV 8.7 fL (7.6-11.3); RBC Red Blood Cell Count 3.33 M/uL (4.33-5.43)
[2021-03-07] MEDS: PANTOPRAZOLE 40 MG INJ IVP SCH ×2 (05:36→16:52)
--- NOTE | 2021-03-07 06:14 | P.PN ---
Subjective Date of Service: 03/07/21 Primary Care Provider: Dr. Sommer in [place] Chief Complaint: covid pneumonia Subjective: Improving (Breathing is improving, patient down to 2 L nasal cannula, has not fully completed bowel prep yet, patient refusing at times. He is tentatively planned for colonoscopy/EGD today. Reports some slight abdominal discomfort. Otherwise no new complaints) Review of Systems 10-point ROS is otherwise unremarkable Physical Examination - Vital Signs Temperature: 98.3 F Blood Pressure: 116/62 Pulse: 89 Respirations: 19 Pulse Ox (%): 95 Assessment & Plan Physician Review Additional Text: Physical Exam Gen: NAD, alert/oriented HEENT: normal conjunctiva, sclera anicteric CV: Regular rate/rhythm, no edema Pulm: nonlabored on 2LNC Abd: soft, minimal discomfort diffusely, nondistended MSK: no joint swelling Neuro: moves all extremities, generalized weakness Problem list Acute hypoxemic respiratory failure secondary to COVID-19 pneumonia Diabetes mellitus, type II, non-insulin dependent Acute metabolic encephalopathy, secondary to COVID-19 vs dementia component, resolved Hypertension Chronic vertigo Constipation GI bleed, likely secondary to stercoral ulcer for gastric ulcer Oxygen requirement improving Continue steroids, vitamin supplementation. Completed Baracitinib. GI bleed, Xarelto discontinued. GI consulted, started IV Protonix twice daily on 03/04 CT abdomen/pelvis consistent with significant constipation, dilated rectum Patient improved after enema, Stool more brown, less maroon Suspect stercoral ulcer may be the cause of his GI bleeding Continue with bowel regimen, daily MiraLAX, Colace twice daily Discussed with GI, bowel prep ordered evening of 03/06. Plan for EGD and colonoscopy on 03/07 Patient with significant debility, and requiring moderate to max assist, also has chronic vertigo inhibits his physical therapy participation participation Meclizine ordered as needed Patient and family agreeable to SNF on discharge Dispo: anticipate dc in ~2-3 days, to SNF Time Spent Managing Pts Care (In Minutes): 35
[2021-03-07] MEDS: INSULIN -REGULAR HUMAN 50 UNIT/0.5 ML ML SQ SCH ×4 (07:30→21:00)
[2021-03-07] MEDS: THIAMINE HCL 100 MG TABLET PO SCH ×2 (09:00→21:00)
[2021-03-07] MEDS: GLUCERNA SHAKE 237 ML CAN PO SCH ×2 (09:00→21:00)
[2021-03-07] MEDS: FENOFIBRATE 160 MG TAB PO SCH (09:00)
[2021-03-07] MEDS: POLYETHYL GLY 3350 17 GM/DOSE PO SCH (09:00)
[2021-03-07] MEDS: DOCUSATE NA 100 MG CAP PO SCH ×2 (09:00→21:00)
[2021-03-07] MEDS: TAMSULOSIN 0.4 MG SR CAP PO SCH (09:00)
[2021-03-07] MEDS: METHYLPREDNISOLONE 40 MG INJ IV SCH ×2 (09:12→22:10)
[2021-03-07] MEDS ORDERED: NA CHLORIDE 0.9% 1,000 ML ONE (14:33)
[2021-03-07] MEDS ORDERED: LIDOCAINE 1% MPF 5 ML VIAL ONE (14:37)
[2021-03-07] MEDS ORDERED: MIDAZOLAM HCL 2 MG/2 ML INJ ONE (14:37)
[2021-03-07] MEDS ORDERED: propofoL 200 MG/20 ML VIAL IV ONE (14:37)
--- NOTE | 2021-03-07 14:45 | ENDO RPT ---
[address], [address] EGD PROCEDURE REPORT EXAM DATE: 03/07/2021 PATIENT NAME: Ryan Dallas MR#: [id number] BIRTHDATE: 1935 ATTENDING: Genaro Fernandez Dr STATUS: outpatient STANDARDS ANALYST: Dionne GONZALEZ and Jyoti Gilmore RN INDICATIONS: The patient is a 86 yr old Female here for an EGD due to upper G.I. bleeding, melenic bleeding, anemia, and abdominal pain PROCEDURE PERFORMED: EGD with biopsy MEDICATIONS: Per Anesthesia. TOPICAL ANESTHETIC: none CONSENT: The patient understands the risks and benefits of the procedure and understands that these risks include, but are not limited to: sedation, allergic reaction, infection, perforation and/or bleeding. Alternative means of evaluation and treatment include, among others: physical exam, x-rays, and/or surgical intervention. The patient elects to proceed with this endoscopic procedure. DESCRIPTION OF PROCEDURE: During intra-op preparation period all mechanical medical equipment was checked for proper function. Hand hygiene and appropriate measures for infection prevention was taken. Procedure, possible complications, and alternatives including but not limited to the possibility of bleeding, perforation, tear, infection, sepsis, need for surgery, need for blood transfusion, and anesthesia related complications were explained to the patient. After the risks, benefits and alternatives of the procedure were thoroughly explained, Informed consent was verified, confirmed and timeout was successfully executed by the treatment team. The patient was placed in the left lateral position. The patient was anesthetized with topical anesthesia. Through the anesthetized oropharyngeal area, the scope was passed without any difficulty. The Pentax EG-[id number] ([id number]) endoscope was introduced through the mouth and advanced to the third portion of the duodenum. Retroflexed views revealed a small hiatal hernia. The gastroscope was then slowly withdrawn and removed. Numerous white plaques were found in the total esophagus. Multiple biopsies were obtained and sent to pathology. A small hiatal hernia was found Moderate Atrophic gastritis was found in the body < the antrum of the stomach. Multiple biopsies were obtained and sent to pathology. Multiple (2) ulcers were found in the antrum. ADVERSE EVENTS: There were no complications. IMPRESSIONS: 1. Numerous white plaques in the upper > lower esophagus -> probable Kat esophagitis 2. Small hiatal hernia 3. Moderate atrophic gastritis in the body < the antrum of the stomach, s/p biopsies antrum) clean-based ulcers in the antrum RECOMMENDATIONS: 1. await biopsy results 2. acid suppression therapy REPEAT EXAM: Genaro Fernandez Dr eSigned: Genaro Fernandez Dr 03/07/2021 2:45 PM cc: CPT CODES: ICD9 CODES: PATIENT NAME: Ryan Dallas MR#: [id number]
--- NOTE | 2021-03-07 15:06 | ENDO RPT ---
[address], [address] COLONOSCOPY PROCEDURE REPORT EXAM DATE: 03/07/2021 PATIENT NAME: Ryan Dallas MR #: [id number] BIRTHDATE: 1935 ATTENDING: Genaro Fernandez Dr STATUS: outpatient FINAL INSPECTOR: Dionne GONZALEZ and Jyoti Gilmore RN INDICATIONS: The patient is a 86 yr old Female here for a colonoscopy due to melenic bleeding, hematochezia, anemia, abdominal pain, and abnormal CT of liver PROCEDURE PERFORMED: Colonoscopy MEDICATIONS: Per Anesthesia. ESTIMATED BLOOD LOSS: None CONSENT: The patient understands the risks and benefits of the procedure and understands that these risks include, but are not limited to: sedation, allergic reaction, infection, perforation and/or bleeding. Alternative means of evaluation and treatment include, among others: physical exam, x-rays, and/or surgical intervention. The patient elects to proceed with this endoscopic procedure. DESCRIPTION OF PROCEDURE: During intra-op preparation period all mechanical medical equipment was checked for proper function. Hand hygiene and appropriate measures for infection prevention was taken. Procedure, possible complications, alternatives including, but not limited to possibility of bleeding, perforation, tear, infection, sepsis, need for surgery, need for blood transfusion, were explained to the patient. After the risks, benefits and alternatives of the procedure were thoroughly explained, Informed consent was verified, confirmed and timeout was successfully executed by the treatment team. The patient was placed in the left lateral position. A digital rectal exam was performed and revealed external hemorrhoids. After appropriate level of anesthesia, the scope was passed. The EG-[id number] ([id number]) and [id number] ([id number]) endoscope was introduced through the anus and advanced to the descending colon. The quality of the prep was poor. The instrument was then slowly withdrawn as the colon was fully examined. Scope withdrawal time was 5 minutes. COLON FINDINGS: Moderate diverticulosis was noted in the descending colon and sigmoid colon. No bleeding was noted from the diverticulosis. Small internal and external hemorrhoids were found. Retroflexed views revealed small hemorrhoids. The scope was then completely withdrawn from the patient and the procedure terminated. ADVERSE EVENTS: There were no complications. IMPRESSIONS: 1. Moderate diverticulosis in the descending colon > sigmoid colon 2. Small internal and external hemorrhoids 3. Poor prep, unable to pass large solid stool in the descending colon RECOMMENDATIONS: 1. fiber rich diet 2. repeat colonoscopy prep now RECALL: Return in 1-3 day(s) for Colonoscopy. Genaro Fernandez Dr eSigned: Genaro Fernandez Dr 03/07/2021 3:06 PM cc: CPT CODES: ICD9 CODES: PATIENT NAME: Ryan Dallas MR#: [id number]
[2021-03-07] MEDS ORDERED: MAGNESIUM CITRATE 300 ML BOT PO SCH (15:17)
[2021-03-07] MEDS ORDERED: GOLYTELY 4000 ML PO SCH (15:17)
--- NOTE | 2021-03-07 15:22 | CON ---
Date of Consultation: 03/07/2021 Reason For Consultation: Melena - maroon stools, anemia, generalized abdominal pain, abnormal CT revealing distended rectum 6.5 cm and a 2.3 cm rounded mass in the right lobe of the liver. History Of Present Illness: Patient is an 86-year-old male with history of diabetes, hypertension, hyperlipidemia, bone marrow cancer. Patient presented to the hospital with shortness of breath and fever. Now he has complaints of melena - maroon stools, anemia, generalized abdominal pain, abnormal CT revealing distended rectum 6.5 cm and a 2.3 cm rounded mass in the right lobe of the liver. Patient also found to have a COVID pneumonia on admission. states at home his O2 saturation was somewhere around 75% to 79% on room air. They brought him to the hospital for further evaluation and care. He has been in hospital for the past 25+ days. His ferritin, which is over 2000. His CRP, which is probably over 300, has all improved markedly. His CRP repeat yesterday was 12, down from over 300. Past Medical History: Significant for diabetes, hypertension, hyperlipidemia, bone marrow cancer. Medications: See list. Social History: , 2 children. No tobacco. No alcohol. Quit alcohol in 2009. Family History: Has a sister with breast cancer. Father of myocardial infarction. Mother had hypertension, of myocardial infarction as well. Social History: He lives with his daughter and son-in-law and his . Allergies: NKDA. Review of Systems: He has shortness of breath, melena, maroon stools. Generalized abdominal pain, improved since enema therapy started last night with marked improvement. Unable to get a Gastrografin enema previous day. Radiology was unable to do at that time. No radiologist. He denies any hematemesis, coffee-ground emesis, hematochezia, hematuria, dysuria, polydipsia, chest pain, short of breath, seizure, syncope, lower extremity edema, muscle aches, joint aches, backaches, depression, anxiety is minimal. He is very hard of hearing. Physical Examination: Vital Signs: He is 5 feet 5 inches, 164 pounds, BMI 27.3 kg/m2. General: He is a well-nourished, well-developed, elderly male, lying in bed, in no acute distress, but hard of hearing. HEENT: Normocephalic, atraumatic. Anicteric. Pupils are equal, round, and reactive to light. Extraocular movements intact. Oropharynx is clear. Neck: Supple. No masses. Respirations: With good air movement. Cardiac: Regular rhythm. No gallops. Gastrointestinal: Positive bowel sounds. Soft, nondistended. Mild tenderness, but no peritoneal or Varela sign. No rebound. Extremities: Trace lower extremity edema. No clubbing, cyanosis. Neuro: Alert and oriented x2 with very hard of hearing, but answers questions appropriately if it appears he understand due to his hearing difficulty. Laboratory Data: He has a white count of 7.4, down from 13.8 on the 16th; hemoglobin of 11.3, up from the 10.5 yesterday; hematocrit 34; MCV of 101.5; platelet count of 134. PT of , INR of 1.4. D-dimer of 4.41. . Sodium 142, potassium 4.3, chloride 110, bicarb 33, BUN of 12, creatinine of 0.38, glucose of 118, calcium 8.0, magnesium 2.2. Ferritin of 659.4, which is down from over 2000. C-reactive protein of 12.4, down from over 300. Serologies: He is COVID positive on admission. Imaging: CT abdomen and pelvis revealed a 6.5 cm distended rectum and 2.3 cm rounded mass in the right lobe of the liver. The radiologist thinks aggressive process is unlikely. Impression: 1. Melena - maroon stools, anemia, generalized abdominal pain, abnormal CT revealing distended rectum 6.5 cm and a 2.3 cm rounded mass in the right lobe of the liver. 2. Also COVID-19 pneumonia 25+ days in the hospital. 3. History of diabetes, hypertension, hyperlipidemia, bone marrow cancer. Recommendations: 1. Serial H and H, and transfuse p.r.n. 2. Enema therapy, which has been successful yesterday and the day before. The patient should continue MiraLAX. 3. PPI therapy. 4. EGD, colonoscopy. 5. COVID-19 pneumonia therapy. SALLIE/RODGER Voice ID: [id number] Report ID: [id number] MTDD
[2021-03-07] MEDS: MAGNESIUM CITRATE 300 ML BOT PO SCH (16:49)
[2021-03-07] MEDS: GOLYTELY 4000 ML PO SCH (16:49)
[2021-03-07] MEDS: INSULIN GLARGINE 100 UNITS/ML SQ SCH (16:50)
[2021-03-07] MEDS: METOCLOPRAMIDE 10 MG/2mL INJ IV SCH ×2 (16:50→18:00)
--- NOTE | 2021-03-07 19:04 | RAD REPORT ---
EXAM DESCRIPTION: RAD - Chest Single View - 03/07/2021 6:31 pm CLINICAL HISTORY: Device placement nasogastric tube placement IMPRESSION: Nasogastric tube has been inserted into the lateral aspect of the proximal to mid stomac h
[2021-03-07] MEDS: MELATONIN 5 MG TABLET PO SCH (21:00)
[2021-03-07] MEDS ORDERED: FLUCONAZOLE 400 MG IVPB 400 MG/200 ML BAG IV ONE (22:30)
[2021-03-07] MEDS ORDERED: FLUCONAZOLE 200mg IVPB 400 MG/200 ML BAG IV ONE (23:47)
[2021-03-08] MEDS: METOCLOPRAMIDE 10 MG/2mL INJ IV SCH (00:09)
[2021-03-08] MEDS: PANTOPRAZOLE 40 MG INJ IVP SCH ×2 (05:38→16:48)
[2021-03-08 06:33] LABS: Hematocrit 33.1 % (39.6-49.0); MPV 8.4 fL (7.6-11.3); RBC Red Blood Cell Count 3.23 M/uL (4.33-5.43)
[2021-03-08 07:09] LABS: BUN Blood Urea Nitrogen 10 mg/dL (7-18); Bicarbonate 28 mmol/L (21-32); Glucose Level 187 mg/dL (74-106); Magnesium 2.3 mg/dL (1.8-2.4); Potassium 4.4 mmol/L (3.5-5.1); Sodium Level 143 mmol/L (136-145)
[2021-03-08] MEDS: POLYETHYL GLY 3350 17 GM/DOSE PO SCH (08:13)
[2021-03-08] MEDS: GLUCERNA SHAKE 237 ML CAN PO SCH ×3 (08:13→21:00)
[2021-03-08] MEDS: FENOFIBRATE 160 MG TAB PO SCH (08:32)
[2021-03-08] MEDS: THIAMINE HCL 100 MG TABLET PO SCH ×2 (08:32→20:56)
[2021-03-08] MEDS: DOCUSATE NA 100 MG CAP PO SCH ×2 (08:32→20:58)
[2021-03-08] MEDS: INSULIN -REGULAR HUMAN 50 UNIT/0.5 ML ML SQ SCH ×4 (08:32→20:57)
[2021-03-08] MEDS: METHYLPREDNISOLONE 40 MG INJ IV SCH ×2 (08:32→20:56)
[2021-03-08] MEDS: TAMSULOSIN 0.4 MG SR CAP PO SCH (08:32)
[2021-03-08] MEDS: FLUCONAZOLE 100 MG TAB PO SCH (11:36)
[2021-03-08] MEDS: INSULIN GLARGINE 100 UNITS/ML SQ SCH (16:48)
[2021-03-08] MEDS ORDERED: FLUCONAZOLE 100 MG TAB PO SCH (17:00)
[2021-03-08] MEDS ORDERED: GOLYTELY 4000 ML PO SCH (18:00)
--- NOTE | 2021-03-08 18:06 | P.PN ---
Subjective Date of Service: 03/08/21 Primary Care Provider: Dr. Sommer in [place] Chief Complaint: covid pneumonia Subjective: Improving (Required minimal more oxygen supplementation. Dobbhoff placed last night for GoLYTELY prep, as patient was refusing previously. N.p.o. for possible colonoscopy. Still much more clear, not bloody) Review of Systems 10-point ROS is otherwise unremarkable Physical Examination - Vital Signs Temperature: 98.6 F Blood Pressure: 110/65 Pulse: 107 Respirations: 20 Pulse Ox (%): 95 Assessment & Plan Physician Review Additional Text: Physical Exam Gen: NAD, alert/oriented HEENT: normal conjunctiva, sclera anicteric CV: Regular rate/rhythm, no edema Pulm: nonlabored on 2LNC Abd: soft, minimal discomfort diffusely, nondistended MSK: no joint swelling Neuro: moves all extremities, generalized weakness dobhoff in place Problem list Acute hypoxemic respiratory failure secondary to COVID-19 pneumonia Diabetes mellitus, type II, non-insulin dependent Acute metabolic encephalopathy, secondary to COVID-19 vs dementia component, resolved Hypertension Chronic vertigo Constipation GI bleed, secondary to moderate atrophic gastritis Esophageal candidiasis Oxygen requirement improving Continue steroids, vitamin supplementation. Completed Baracitinib. GI bleed, Xarelto discontinued. GI consulted, started IV Protonix twice daily on 03/04 CT abdomen/pelvis consistent with significant constipation, dilated rectum Patient improved after enemas, Stool more brown, less maroon s/p EGD and incomplete colonoscopy on 03/07 -patient noted to have gastritis, no stercoral ulcer noted, however incomplete bowel prep Continue with bowel regimen, daily MiraLAX, Colace twice daily Patient to continue with bowel prep for possible colonoscopy today or tomorrow. Pending Dr. Fernandez Patient with significant debility, and requiring moderate to max assist, also has chronic vertigo inhibits his physical therapy participation participation Meclizine ordered as needed Patient and family agreeable to SNF on discharge Dispo: anticipate dc in ~2 days, to SNF Time Spent Managing Pts Care (In Minutes): 35
[2021-03-08] MEDS: FLUCONAZOLE 200mg IVPB 200 MG/100 ML BAG IV SCH (20:00)
[2021-03-08] MEDS: MELATONIN 5 MG TABLET PO SCH (20:56)
[2021-03-08] MEDS ORDERED: METOCLOPRAMIDE 10 MG/2mL INJ IV PRN (21:02)
[2021-03-08] MEDS: MAGNESIUM CITRATE 300 ML BOT PO SCH (22:53)
[2021-03-09 04:01] LABS: Hematocrit 33.8 % (39.6-49.0); MPV 8.2 fL (7.6-11.3); RBC Red Blood Cell Count 3.33 M/uL (4.33-5.43)
[2021-03-09 04:09] LABS: BUN Blood Urea Nitrogen 9 mg/dL (7-18); Bicarbonate 29 mmol/L (21-32); Glucose Level 85 mg/dL (74-106); Magnesium 2.4 mg/dL (1.8-2.4); Potassium 3.8 mmol/L (3.5-5.1); Sodium Level 144 mmol/L (136-145)
[2021-03-09] MEDS: PANTOPRAZOLE 40 MG INJ IVP SCH ×2 (05:19→16:39)
[2021-03-09] MEDS: INSULIN -REGULAR HUMAN 50 UNIT/0.5 ML ML SQ SCH ×4 (07:30→20:30)
[2021-03-09] MEDS: POLYETHYL GLY 3350 17 GM/DOSE PO SCH (08:45)
[2021-03-09] MEDS: METHYLPREDNISOLONE 40 MG INJ IV SCH ×2 (08:45→20:26)
[2021-03-09] MEDS: TAMSULOSIN 0.4 MG SR CAP PO SCH (08:46)
[2021-03-09] MEDS: DOCUSATE NA 100 MG CAP PO SCH ×2 (08:46→20:28)
[2021-03-09] MEDS: FENOFIBRATE 160 MG TAB PO SCH (08:46)
[2021-03-09] MEDS: THIAMINE HCL 100 MG TABLET PO SCH ×2 (08:47→20:28)
[2021-03-09] MEDS: FLUCONAZOLE 100 MG TAB PO SCH (08:47)
[2021-03-09] MEDS: GLUCERNA SHAKE 237 ML CAN PO SCH ×2 (08:48→21:00)
[2021-03-09] MEDS: INSULIN GLARGINE 100 UNITS/ML SQ SCH (16:39)
--- NOTE | 2021-03-09 17:14 | P.PN ---
Subjective Date of Service: 03/09/21 Primary Care Provider: Dr. Sommer in [place] Chief Complaint: covid pneumonia Patient has no new complain. Patient lying comfortably in bed He is tolerating 0.5-1 L oxygen by nasal cannula. No bloody stools today. Physical Examination - Vital Signs Temperature: 98.2 F Blood Pressure: 118/60 Pulse: 97 Respirations: 18 Pulse Ox (%): 95 Assessment And Plan - Current Problems (Diagnosis) (1) Acute respiratory failure with hypoxia Current Visit: Yes Status: Acute (2) Diabetes mellitus Current Visit: Yes Status: Acute (3) Pneumonia due to COVID-19 virus Current Visit: Yes Status: Acute Physician Review Additional Text: Physical Exam Gen: NAD, alert/oriented HEENT: normal conjunctiva, sclera anicteric CV: Regular rate/rhythm, no edema Pulm: nonlabored breathing Abd: soft, nondistended, nontender. MSK: no joint swelling Neuro: moves all extremities, generalized weakness Problem list Acute hypoxemic respiratory failure secondary to COVID-19 pneumonia Diabetes mellitus, type II, non-insulin dependent Acute metabolic encephalopathy, secondary to COVID-19 vs dementia component, resolved Hypertension Chronic vertigo Constipation GI bleed, secondary to moderate atrophic gastritis Esophageal candidiasis Continue steroids, vitamin supplementation. Completed Baracitinib. GI bleed, Xarelto discontinued. GI consulted, started IV Protonix twice daily on 03/04 CT abdomen/pelvis consistent with significant constipation, dilated rectum Patient improved after enemas. s/p EGD and incomplete colonoscopy on 03/07 -patient noted to have gastritis, no stercoral ulcer noted, however incomplete bowel prep Continue with bowel regimen, daily MiraLAX, Colace twice daily Patient scheduled for colonoscopy today. Patient with significant debility, and requiring moderate to max assist, also has chronic vertigo which is limiting physical therapy participation Meclizine ordered as needed Patient plan for SNF placement.
--- NOTE | 2021-03-09 17:51 | P.PN ---
Subjective Date of Service: 03/09/21 Primary Care Provider: Dr. Sommer in [place] Chief Complaint: covid pneumonia, anemia, gen abd pain, melena Subjective: New changes (Colonoscopy for today on hold due to busy OR with staffing (jose anesthesia). Have scheduled time tomorrow morning.) Physical Examination - Vital Signs Temperature: 98.2 F Blood Pressure: 118/60 Pulse: 97 Respirations: 18 Pulse Ox (%): 95 Assessment And Plan - Current Problems (Diagnosis) (1) Anemia Current Visit: Yes Status: Acute (2) Melena Current Visit: Yes Status: Acute (3) Generalized abdominal pain Current Visit: Yes Status: Acute (4) Abnormal CT of the abdomen Current Visit: Yes Status: Acute (5) Pneumonia due to COVID-19 virus Current Visit: Yes Status: Acute - Plan REC: 1) colonoscopy tomorrow 2) monitor labs Physician Review Additional Text: Physical Exam Gen: NAD, alert/oriented HEENT: normal conjunctiva, sclera anicteric CV: Regular rate/rhythm, no edema Pulm: nonlabored breathing Abd: soft, nondistended, nontender. MSK: no joint swelling Neuro: moves all extremities, generalized weakness Problem list Acute hypoxemic respiratory failure secondary to COVID-19 pneumonia Diabetes mellitus, type II, non-insulin dependent Acute metabolic encephalopathy, secondary to COVID-19 vs dementia component, resolved Hypertension Chronic vertigo Constipation GI bleed, secondary to moderate atrophic gastritis Esophageal candidiasis Continue steroids, vitamin supplementation. Completed Baracitinib. GI bleed, Xarelto discontinued. GI consulted, started IV Protonix twice daily on 03/04 CT abdomen/pelvis consistent with significant constipation, dilated rectum Patient improved after enemas. s/p EGD and incomplete colonoscopy on 03/07 -patient noted to have gastritis, no stercoral ulcer noted, however incomplete bowel prep Continue with bowel regimen, daily MiraLAX, Colace twice daily Patient scheduled for colonoscopy today. Patient with significant debility, and requiring moderate to max assist, also has chronic vertigo which is limiting physical therapy participation Meclizine ordered as needed Patient plan for SNF placement.
[2021-03-09] MEDS: MELATONIN 5 MG TABLET PO SCH (20:27)
[2021-03-09] MEDS: ACETAMINOPHEN 500 MG TAB PO PRN (20:28)
[2021-03-09] MEDS: FLUCONAZOLE 200mg IVPB 200 MG/100 ML BAG IV SCH (20:31)
[2021-03-09] MEDS: MAGNESIUM CITRATE 300 ML BOT PO SCH (22:00)
[2021-03-10 04:01] LABS: Absolute Lymphocytes (CBC) 0.2 K/uL (0.7-4.9); Basophils % 0.1 % (0-1.3); Hematocrit 32.2 % (39.6-49.0); Lymphocytes % 1.7 % (15.3-44.8); MPV 8.1 fL (7.6-11.3); RBC Red Blood Cell Count 3.19 M/uL (4.33-5.43)
[2021-03-10 04:11] LABS: BUN Blood Urea Nitrogen 8 mg/dL (7-18); Bicarbonate 30 mmol/L (21-32); Glucose Level 75 mg/dL (74-106); Sodium Level 144 mmol/L (136-145)
[2021-03-10 05:01] LABS: Blood Morphology Comment NOTED (NOT SEEN); Platelet Estimate ADEQ; Polychromasia 2+
[2021-03-10] MEDS: PANTOPRAZOLE 40 MG INJ IVP SCH ×2 (05:25→17:00)
[2021-03-10] MEDS: INSULIN -REGULAR HUMAN 50 UNIT/0.5 ML ML SQ SCH ×4 (07:30→21:01)
[2021-03-10] MEDS ORDERED: NA CHLORIDE 0.9% 1,000 ML ONE (08:50)
[2021-03-10] MEDS: FENOFIBRATE 160 MG TAB PO SCH (09:00)
[2021-03-10] MEDS: FLUCONAZOLE 100 MG TAB PO SCH ×2 (09:00)
[2021-03-10] MEDS: THIAMINE HCL 100 MG TABLET PO SCH ×2 (09:00→21:00)
[2021-03-10] MEDS: GLUCERNA SHAKE 237 ML CAN PO SCH ×2 (09:00→21:00)
[2021-03-10] MEDS: POLYETHYL GLY 3350 17 GM/DOSE PO SCH ×2 (09:00)
[2021-03-10] MEDS: METHYLPREDNISOLONE 40 MG INJ IV SCH ×2 (09:00→20:59)
[2021-03-10] MEDS: DOCUSATE NA 100 MG CAP PO SCH ×3 (09:00→21:00)
[2021-03-10] MEDS: TAMSULOSIN 0.4 MG SR CAP PO SCH ×2 (09:00)
[2021-03-10] MEDS ORDERED: propofoL 200 MG/20 ML VIAL IV ONE (11:20)
[2021-03-10] MEDS ORDERED: ETOMIDATE 20 MG/10 ML VIAL IV ONE (11:21)
[2021-03-10] MEDS ORDERED: LIDOCAINE 1% MPF 5 ML VIAL ONE (11:21)
--- NOTE | 2021-03-10 11:49 | ENDO RPT ---
[address], [address] COLONOSCOPY PROCEDURE REPORT EXAM DATE: 03/10/2021 PATIENT NAME: Ryan Dallas MR #: [id number] BIRTHDATE: 1935 ATTENDING: Genaro Fernandez Dr STATUS: outpatient PET ADOPTION COUNSELOR: Hillary Alvares RN and Skye Ma INDICATIONS: The patient is a 86 yr old Male here for a colonoscopy due to melenic bleeding, anemia, generalized abdominal pain, and abnormal CT of abdomen PROCEDURE PERFORMED: Colonoscopy MEDICATIONS: Per Anesthesia. ESTIMATED BLOOD LOSS: None CONSENT: The patient understands the risks and benefits of the procedure and understands that these risks include, but are not limited to: sedation, allergic reaction, infection, perforation and/or bleeding. Alternative means of evaluation and treatment include, among others: physical exam, x-rays, and/or surgical intervention. The patient elects to proceed with this endoscopic procedure. DESCRIPTION OF PROCEDURE: During intra-op preparation period all mechanical medical equipment was checked for proper function. Hand hygiene and appropriate measures for infection prevention was taken. Procedure, possible complications, alternatives including, but not limited to possibility of bleeding, perforation, tear, infection, sepsis, need for surgery, need for blood transfusion, were explained to the patient. After the risks, benefits and alternatives of the procedure were thoroughly explained, Informed consent was verified, confirmed and timeout was successfully executed by the treatment team. The patient was placed in the left lateral position. A digital rectal exam was performed and revealed external hemorrhoids. After appropriate level of anesthesia, the scope was passed. The EC-[id number] ([id number]) endoscope was introduced through the anus and advanced to the cecum, which was identified by both the appendix and ileocecal valve. The quality of the prep was poor. The instrument was then slowly withdrawn as the colon was fully examined. Scope withdrawal time was 8 minutes. COLON FINDINGS: Moderate diverticulosis was noted throughout the entire examined colon. Moderate sized internal and external hemorrhoids were found. Retroflexed views revealed medium hemorrhoids. The scope was then completely withdrawn from the patient and the procedure terminated. ADVERSE EVENTS: There were no complications. IMPRESSIONS: 1. Moderate diverticulosis throughout the entire examined colon 2. Moderate sized internal and external hemorrhoids 3. Intubation to cecum 4. Poor prep despite 3 day colonoscopy prep RECOMMENDATIONS: 1. fiber rich diet RECALL: Genaro Fernandez Dr eSigned: Genaro Fernandez Dr 03/10/2021 11:48 AM cc: CPT CODES: ICD9 CODES: 455.5 External hemorrhoids with other complication PATIENT NAME: Ryan Dallas MR#: [id number]
--- NOTE | 2021-03-10 16:24 | P.PN ---
Subjective Date of Service: 03/10/21 Primary Care Provider: Dr. Sommer in [place] Chief Complaint: covid pneumonia, anemia, gen abd pain, melena Patient has no new complain. He went for colonoscopy today Patient tolerating 1 L oxygen by nasal cannula. Physical Examination - Vital Signs Temperature: 97.1 F Blood Pressure: 102/62 Pulse: 89 Respirations: 16 Pulse Ox (%): 95 Assessment And Plan - Current Problems (Diagnosis) (1) Acute respiratory failure with hypoxia Current Visit: Yes Status: Acute (2) Diabetes mellitus Current Visit: Yes Status: Acute (3) Pneumonia due to COVID-19 virus Current Visit: Yes Status: Acute Physician Review Additional Text: Physical Exam Gen: NAD, alert/oriented HEENT: normal conjunctiva, sclera anicteric CV: Regular rate/rhythm, no edema Pulm: nonlabored breathing Abd: soft, nondistended, nontender. MSK: no joint swelling Neuro: moves all extremities, generalized weakness Problem list Acute hypoxemic respiratory failure secondary to COVID-19 pneumonia Diabetes mellitus, type II, non-insulin dependent Acute metabolic encephalopathy, secondary to COVID-19 vs dementia component, resolved Hypertension Chronic vertigo Constipation GI bleed, secondary to moderate atrophic gastritis Esophageal candidiasis Continue steroids, vitamin supplementation. Completed Baracitinib. GI bleed, Xarelto discontinued. Seen by GI-Dr. Fernandez. On IV Protonix twice daily on 03/04 CT abdomen/pelvis consistent with significant constipation, dilated rectum s/p EGD and incomplete colonoscopy on 03/07 -patient noted to have gastritis, no stercoral ulcer noted, however incomplete bowel prep Continue with bowel regimen, daily MiraLAX, Colace twice daily Colonoscopy done today. Awaiting result. Patient with significant debility, and requiring moderate to max assist, also has chronic vertigo which is limiting physical therapy participation Meclizine ordered as needed Continue PT. Patient plan for SNF placement.
[2021-03-10] MEDS: INSULIN GLARGINE 100 UNITS/ML SQ SCH (17:00)
[2021-03-10] MEDS: MELATONIN 5 MG TABLET PO SCH (20:59)
[2021-03-11 04:28] LABS: Hematocrit 31.8 % (39.6-49.0)
[2021-03-11] MEDS: PANTOPRAZOLE 40 MG INJ IVP SCH ×2 (06:07→18:53)
[2021-03-11] MEDS: INSULIN -REGULAR HUMAN 50 UNIT/0.5 ML ML SQ SCH ×5 (07:30→21:06)
[2021-03-11] MEDS: GLUCERNA SHAKE 237 ML CAN PO SCH ×2 (09:00→21:00)
[2021-03-11] MEDS: POLYETHYL GLY 3350 17 GM/DOSE PO SCH (09:06)
[2021-03-11] MEDS: METHYLPREDNISOLONE 40 MG INJ IV SCH ×2 (09:07→21:07)
[2021-03-11] MEDS: FENOFIBRATE 160 MG TAB PO SCH (09:07)
[2021-03-11] MEDS: THIAMINE HCL 100 MG TABLET PO SCH ×2 (09:07→21:00)
[2021-03-11] MEDS: FLUCONAZOLE 100 MG TAB PO SCH (09:07)
[2021-03-11] MEDS: DOCUSATE NA 100 MG CAP PO SCH ×2 (09:07→21:07)
[2021-03-11] MEDS: TAMSULOSIN 0.4 MG SR CAP PO SCH (09:07)
--- NOTE | 2021-03-11 15:00 | P.DS ---
Admission Date: 02/11/21 Discharge Date: 03/11/21 Primary Care Provider: Dr. Sommer in [place] Reason for Admission: covid pneumonia, anemia, gen abd pain, melena - Problems (1) Acute respiratory failure with hypoxia Current Visit: Yes Status: Acute (2) Diabetes mellitus Current Visit: Yes Status: Acute (3) Pneumonia due to COVID-19 virus Current Visit: Yes Status: Acute Brief History of Present Illness: 85 y/o with HTN, DM2, HLD, who presents today with worsening SOB x 3 days. History is obtained from daughter (Swathi) since patient is very hard of hearing. Patient diagnosed with covid on 02/04. Daughter reported pt was c/o chest pain and was found to be hypoxic 75-78%. EMS brought patient in. No covid vaccine per daughter. K 3.3, lactate 1.6, gluc 371, ferritin 1535, CRP 218, procal 0.50 negative troponin CXR: FINDINGS: Mild scattered bilateral airspace opacities which are new from prior. The heart size within normal limits.No acute osseous abnormality. No significant pleural effusions or pneumothorax. Patient was admitted for further management. Hospital Course: Diagnosis Acute hypoxemic respiratory failure secondary to COVID-19 pneumonia Diabetes mellitus, type II, non-insulin dependent Acute metabolic encephalopathy, secondary to COVID-19 vs dementia component, resolved Hypertension Chronic vertigo Constipation GI bleed, secondary to moderate atrophic gastritis Esophageal candidiasis Patient admitted to the medical floor and treated with IV steroid, vitamin supplementation, zinc supplementation. He was treated with Baracitinib. He initially required high-flow oxygen, which was gradually weaned down as his respiratory condition improved with treatment. Patient eventually weaned down to 1-2 L oxygen by nasal cannula with good oxygen saturation. He developed blood-stained stool. Diagnosed with GI bleed. He was on Xarelto which was discontinued. Seen by GI-Dr. Fernandez. Treated with IV Protonix twice daily on 03/04. HIDA EGD done which reported gastritis. Had colonoscopy x2, both incomplete prep, no pathology noted. Patient noted to have constipation which was managed with stool softeners and laxatives. CT abdomen/pelvis consistent with significant constipation, dilated rectum Patient has clinically improved. He has significant debility, and requiring moderate to max assist, also has chronic vertigo. Meclizine ordered as needed. Patient seen by PT. He will benefit from skilled rehab per PT recommended. Vital stable. Patient stable for transfer to alf. Vital Signs/Physical Exam: Temp Pulse Resp BP Pulse Ox 98.2 F 89 18 114/67 94 03/11/21 12:00 03/11/21 12:00 03/11/21 12:00 03/11/21 12:00 03/11/21 12:00 General: Alert, In no apparent distress, Oriented x3 HEENT: Mucous membr. moist/pink Neck: JVD not distended Respiratory: Clear to auscultation bilaterally, Normal air movement Cardiovascular: No edema, Regular rate/rhythm Gastrointestinal: Soft and benign Musculoskeletal: No swelling Integumentary: No rashes Neurological: Other (No focal motor deficit) Laboratory Data at Discharge: WBC 9.00 K/uL (4.3-10.9) D 03/10/21 03:02 Hgb 10.8 g/dL (13.6-17.9) L 03/11/21 03:41 Hct 31.8 % (39.6-49.0) L 03/11/21 03:41 Plt Count 180 K/uL (152-406) 03/10/21 03:02 PT 15.8 SECONDS (9.5-12.5) H 02/11/21 13:12 INR 1.37 02/11/21 13:12 Sodium 144 mmol/L (136-145) 03/10/21 03:02 Potassium 4.0 mmol/L (3.5-5.1) 03/10/21 03:02 BUN 8 mg/dL (7-18) 03/10/21 03:02 Creatinine 0.37 mg/dL (0.55-1.3) L 03/10/21 03:02 Glucose 75 mg/dL (74-106) 03/10/21 03:02 Phosphorus 3.4 mg/dL (2.5-4.9) 02/13/21 09:13 Magnesium 2.4 mg/dL (1.8-2.4) 03/09/21 03:15 Total Bilirubin 0.3 mg/dL (0.2-1.0) 03/06/21 03:53 AST 14 U/L (15-37) L 03/06/21 03:53 ALT 29 U/L (12-78) 03/06/21 03:53 Alkaline Phosphatase 50 U/L (45-117) 03/06/21 03:53 Triglycerides 94 mg/dL (<150) 02/12/21 07:52 Cholesterol 82 mg/dL (<200) 02/12/21 07:52 HDL Cholesterol 35 mg/dL (40-60) L 02/12/21 07:52 Cholesterol/HDL Ratio 2.34 02/12/21 07:52 Home Medications: Cholecalciferol (Vitamin D3) [Vitamin D3] 10 mcg PO DAILY 02/12/21 Dapagliflozin Propanediol [Farxiga] 10 mg PO DAILY 02/12/21 Ezetimibe/Simvastatin [Ezetimibe-Simvastatin 10-20 mg] 1 tab PO BEDTIME 02/12/21 Lenalidomide [Revlimid] 25 mg PO DAILY 02/12/21 Metformin HCl [Metformin HCl ER] 750 mg PO BID 02/12/21 Mirabegron [Myrbetriq] 50 mg PO DAILY 02/12/21 Mirtazapine 30 mg PO BEDTIME 02/12/21 Nateglinide 60 mg PO TID 02/12/21 [place]-3 Fatty Acids [[place]-3] 1 cap PO DAILY 02/12/21 Pyridoxine HCl (Vitamin B6) [Vitamin B6] 100 mg PO DAILY 02/12/21 Tamsulosin [Flomax*] 0.4 mg PO DAILY 02/12/21 Docusate [Colace Cap*] 100 mg PO BID #0 cap 03/11/21 Fenofibrate [Tricor*] 160 mg PO DAILY tab 03/11/21 Insulin -Regular Human [Novolin -R*] See Protocol SQ ACHS ml 03/11/21 Meclizine HCl [Antivert*] 25 mg PO Q6H PRN tab 03/11/21 Melatonin 10 mg PO BEDTIME tablet 03/11/21 Pantoprazole [Protonix Tab] 40 mg PO BID #60 tab 03/11/21 Polyethyl Gly 3350 [Glycolax*] 17 gm PO DAILY udbot 03/11/21 Thiamine HCl [Vitamin B-1*] 100 mg PO BID tablet 03/11/21 predniSONE [Deltasone] 20 mg PO BID #21 tab 03/11/21 New Medications: predniSONE [Deltasone] 20 mg PO BID #21 tab Pantoprazole [Protonix Tab] 40 mg PO BID #60 tab Diet: ADA Activity: Fall precautions Followup: Bari Montes De Oca MD [ACTIVE - CAN ADMIT] - (within 2 weeks.) Yeison Sommer DO [Primary Care Provider] - Genaro Fernandez MD [ASSOCIATE-ACTIVE - CAN ADMIT] - (Within 2 weeks) Time spent managing pt's care (in minutes): 42
[2021-03-11] MEDS: INSULIN GLARGINE 100 UNITS/ML SQ SCH (17:00)
[2021-03-11] MEDS: MELATONIN 5 MG TABLET PO SCH (21:00)
[2021-03-11] MEDS ORDERED: MELATONIN 5 MG TABLET PO ONE (23:18)
[2021-03-11] MEDS ORDERED: THIAMINE HCL 100 MG TABLET ONE (23:18)
[2021-03-12] MEDS: PANTOPRAZOLE 40 MG INJ IVP SCH ×2 (05:09→17:00)
[2021-03-12] MEDS: METHYLPREDNISOLONE 40 MG INJ IV SCH ×2 (08:47→20:29)
[2021-03-12] MEDS: DOCUSATE NA 100 MG CAP PO SCH ×2 (08:47→20:28)
[2021-03-12] MEDS: FENOFIBRATE 160 MG TAB PO SCH (08:47)
[2021-03-12] MEDS: TAMSULOSIN 0.4 MG SR CAP PO SCH (08:47)
[2021-03-12] MEDS: POLYETHYL GLY 3350 17 GM/DOSE PO SCH (08:47)
[2021-03-12] MEDS: INSULIN -REGULAR HUMAN 50 UNIT/0.5 ML ML SQ SCH ×4 (08:53→21:00)
[2021-03-12] MEDS: FLUCONAZOLE 100 MG TAB PO SCH (08:57)
[2021-03-12] MEDS: GLUCERNA SHAKE 237 ML CAN PO SCH ×2 (08:58→20:31)
[2021-03-12] MEDS: THIAMINE HCL 100 MG TABLET PO SCH ×2 (09:00→21:00)
--- NOTE | 2021-03-12 15:57 | P.PN ---
Subjective Date of Service: 03/11/21 Primary Care Provider: Dr. Sommer in [place] Chief Complaint: covid pneumonia, anemia, gen abd pain, melena Patient has no new complain. Status post colonoscopy. Poor prep. No lesion identified. Physical Examination - Vital Signs Temperature: 97.6 F Blood Pressure: 110/61 Pulse: 107 Respirations: 22 Pulse Ox (%): 95 Assessment And Plan - Current Problems (Diagnosis) (1) Acute respiratory failure with hypoxia Current Visit: Yes Status: Acute (2) Diabetes mellitus Current Visit: Yes Status: Acute (3) Pneumonia due to COVID-19 virus Current Visit: Yes Status: Acute Physician Review Additional Text: Physical Exam Gen: NAD, alert/oriented HEENT: normal conjunctiva, sclera anicteric CV: Regular rate/rhythm, no edema Pulm: nonlabored breathing Abd: soft, nondistended, nontender. MSK: no joint swelling Neuro: moves all extremities, generalized weakness Problem list Acute hypoxemic respiratory failure secondary to COVID-19 pneumonia Diabetes mellitus, type II, non-insulin dependent Acute metabolic encephalopathy, secondary to COVID-19 vs dementia component, resolved Hypertension Chronic vertigo Constipation GI bleed, secondary to moderate atrophic gastritis Esophageal candidiasis Continue steroids, vitamin supplementation. Completed Baracitinib. GI bleed, Xarelto discontinued. Seen by GI-Dr. Fernandez. On IV Protonix twice daily on 03/04 CT abdomen/pelvis consistent with significant constipation and dilated rectum s/p EGD and incomplete colonoscopy on 03/07. Patient noted to have gastritis. Repeat colonoscopy on 03/10 -, no stercoral ulcer noted. No bleeding lesion identified. Continue with bowel regimen, daily MiraLAX, Colace twice daily Patient with significant debility, and requiring moderate to max assist, also has chronic vertigo. Meclizine ordered as needed Continue PT. SNF placement.
--- NOTE | 2021-03-12 16:02 | P.PN ---
Subjective Date of Service: 03/12/21 Primary Care Provider: Dr. Sommer in [place] Chief Complaint: covid pneumonia, anemia, gen abd pain, melena Patient has no new complain. Patient not accepted to SNF because of his COVID status. Physical Examination - Vital Signs Temperature: 97.6 F Blood Pressure: 110/61 Pulse: 107 Respirations: 22 Pulse Ox (%): 95 Assessment And Plan - Current Problems (Diagnosis) (1) Acute respiratory failure with hypoxia Current Visit: Yes Status: Acute (2) Diabetes mellitus Current Visit: Yes Status: Acute (3) Pneumonia due to COVID-19 virus Current Visit: Yes Status: Acute Physician Review Additional Text: Physical Exam Gen: NAD, alert/oriented HEENT: normal conjunctiva, sclera anicteric CV: Regular rate/rhythm, no edema Pulm: nonlabored breathing Abd: soft, nondistended, nontender. MSK: no joint swelling Neuro: moves all extremities, generalized weakness Problem list Acute hypoxemic respiratory failure secondary to COVID-19 pneumonia Diabetes mellitus, type II, non-insulin dependent Acute metabolic encephalopathy, secondary to COVID-19 vs dementia component, resolved Hypertension Chronic vertigo Constipation GI bleed, secondary to moderate atrophic gastritis Esophageal candidiasis Continue steroids, vitamin supplementation. GI bleed, Xarelto discontinued. Seen by GI-Dr. Fernandez. On IV Protonix twice daily. s/p EGD and incomplete colonoscopy on 03/07. Patient noted to have gastritis. Repeat colonoscopy on 03/10 -, no stercoral ulcer noted. No bleeding lesion identified. Continue with bowel regimen, daily MiraLAX, Colace twice daily Patient with significant debility, and requiring moderate to max assist, also has chronic vertigo. Meclizine ordered as needed Continue PT. SW assisting with arrangement for SNF placement.
[2021-03-12] MEDS: INSULIN GLARGINE 100 UNITS/ML SQ SCH (17:00)
[2021-03-12] MEDS ORDERED: MELATONIN 5 MG TABLET PO ONE (20:27)
[2021-03-12] MEDS ORDERED: THIAMINE HCL 100 MG TABLET ONE (20:28)
[2021-03-12] MEDS: MELATONIN 5 MG TABLET PO SCH (21:00)
[2021-03-13] MEDS: PANTOPRAZOLE 40 MG INJ IVP SCH ×2 (06:08→17:40)
[2021-03-13] MEDS: INSULIN -REGULAR HUMAN 50 UNIT/0.5 ML ML SQ SCH ×4 (08:07→20:16)
[2021-03-13] MEDS: GLUCERNA SHAKE 237 ML CAN PO SCH ×2 (08:08→20:07)
[2021-03-13] MEDS: POLYETHYL GLY 3350 17 GM/DOSE PO SCH (08:08)
[2021-03-13] MEDS: FENOFIBRATE 160 MG TAB PO SCH (08:09)
[2021-03-13] MEDS: TAMSULOSIN 0.4 MG SR CAP PO SCH (08:09)
[2021-03-13] MEDS: METHYLPREDNISOLONE 40 MG INJ IV SCH ×2 (08:09→20:07)
[2021-03-13] MEDS: DOCUSATE NA 100 MG CAP PO SCH ×2 (08:10→20:17)
[2021-03-13] MEDS: FLUCONAZOLE 100 MG TAB PO SCH (08:28)
[2021-03-13] MEDS: THIAMINE HCL 100 MG TABLET PO SCH ×2 (08:31→20:05)
--- NOTE | 2021-03-13 15:46 | P.PN ---
Subjective Date of Service: 03/13/21 Primary Care Provider: Dr. Sommer in [place] Chief Complaint: covid pneumonia, anemia, gen abd pain, melena Patient has no new complain. Patient with 2 L oxygen by nasal cannula. Physical Examination - Vital Signs Temperature: 98.3 F Blood Pressure: 113/61 Pulse: 93 Respirations: 18 Pulse Ox (%): 96 Assessment And Plan - Current Problems (Diagnosis) (1) Acute respiratory failure with hypoxia Current Visit: Yes Status: Acute (2) Diabetes mellitus Current Visit: Yes Status: Acute (3) Pneumonia due to COVID-19 virus Current Visit: Yes Status: Acute Physician Review Additional Text: Physical Exam Gen: NAD, alert/oriented HEENT: normal conjunctiva, sclera anicteric CV: Regular rate/rhythm, no edema Pulm: nonlabored breathing Abd: soft, nondistended, nontender. MSK: no joint swelling Neuro: moves all extremities, generalized weakness Problem list Acute hypoxemic respiratory failure secondary to COVID-19 pneumonia Diabetes mellitus, type II, non-insulin dependent Acute metabolic encephalopathy, secondary to COVID-19 vs dementia component, resolved Hypertension Chronic vertigo Constipation GI bleed, secondary to moderate atrophic gastritis Esophageal candidiasis Continue steroids, vitamin supplementation. GI bleed, Xarelto discontinued. Seen by GI-Dr. Fernandez. On Protonix twice daily. s/p EGD and incomplete colonoscopy on 03/07. Patient noted to have gastritis. Repeat colonoscopy on 03/10 -, no stercoral ulcer noted. No bleeding lesion identified. Continue with bowel regimen, daily MiraLAX, Colace twice daily Patient with significant debility, and requiring moderate to max assist, also has chronic vertigo. Meclizine as needed for vertigo Continue PT. SW assisting with arrangement for SNF placement. May consider discharge to home with home health if patient demonstrate improvement in functional capacity with PT. Spouse feels patient get anxious during PT, affecting his performance. Will try Remeron at bedtime.
[2021-03-13] MEDS: INSULIN GLARGINE 100 UNITS/ML SQ SCH (17:26)
[2021-03-13] MEDS: MELATONIN 5 MG TABLET PO SCH (20:06)
[2021-03-14] MEDS: PANTOPRAZOLE 40 MG INJ IVP SCH ×2 (05:25→17:17)
[2021-03-14] MEDS: INSULIN -REGULAR HUMAN 50 UNIT/0.5 ML ML SQ SCH ×4 (08:50→19:59)
[2021-03-14] MEDS: POLYETHYL GLY 3350 17 GM/DOSE PO SCH (08:51)
[2021-03-14] MEDS: TAMSULOSIN 0.4 MG SR CAP PO SCH (08:51)
[2021-03-14] MEDS: FLUCONAZOLE 100 MG TAB PO SCH (08:51)
[2021-03-14] MEDS: THIAMINE HCL 100 MG TABLET PO SCH ×2 (08:52→19:50)
[2021-03-14] MEDS: GLUCERNA SHAKE 237 ML CAN PO SCH ×2 (08:52→19:50)
[2021-03-14] MEDS: FENOFIBRATE 160 MG TAB PO SCH (08:52)
[2021-03-14] MEDS: DOCUSATE NA 100 MG CAP PO SCH ×2 (08:52→19:49)
[2021-03-14] MEDS: METHYLPREDNISOLONE 40 MG INJ IV SCH (08:52)
--- NOTE | 2021-03-14 14:38 | P.PN ---
Subjective Date of Service: 03/14/21 Primary Care Provider: Dr. Sommer in [place] Chief Complaint: covid pneumonia, anemia, gen abd pain, melena Patient has no new complain. Patient with 2 L oxygen by nasal cannula. He is waiting for SNF placement. Physical Examination - Vital Signs Temperature: 97.2 F Blood Pressure: 101/63 Pulse: 96 Respirations: 18 Pulse Ox (%): 96 Assessment And Plan - Current Problems (Diagnosis) (1) Acute respiratory failure with hypoxia Current Visit: Yes Status: Acute (2) Diabetes mellitus Current Visit: Yes Status: Acute (3) Pneumonia due to COVID-19 virus Current Visit: Yes Status: Acute Physician Review Additional Text: Physical Exam Gen: NAD, alert/oriented HEENT: normal conjunctiva, sclera anicteric CV: Regular rate/rhythm, no edema Pulm: nonlabored breathing Abd: soft, nondistended, nontender. MSK: no joint swelling Neuro: moves all extremities, generalized weakness Problem list Acute hypoxemic respiratory failure secondary to COVID-19 pneumonia Diabetes mellitus, type II, non-insulin dependent Acute metabolic encephalopathy, secondary to COVID-19 vs dementia component, resolved Hypertension Chronic vertigo Constipation GI bleed, secondary to moderate atrophic gastritis Esophageal candidiasis Continue steroids, vitamin supplementation. GI bleed, Xarelto discontinued. Seen by GI-Dr. Fernandez. On Protonix twice daily. s/p EGD and incomplete colonoscopy on 03/07. Patient noted to have gastritis. Repeat colonoscopy on 03/10 -, no stercoral ulcer noted. No bleeding lesion identified. Continue with bowel regimen, daily MiraLAX, Colace twice daily Patient with significant debility, and requiring moderate to max assist, also has chronic vertigo. Meclizine as needed for vertigo Continue PT. SW assisting with arrangement for SNF placement. May consider discharge to home with home health if patient demonstrate improvement in functional capacity with PT. Trial of Remeron.
[2021-03-14] MEDS: INSULIN GLARGINE 100 UNITS/ML SQ SCH (17:15)
[2021-03-14] MEDS: MELATONIN 5 MG TABLET PO SCH (19:49)
[2021-03-14] MEDS: MIRTAZAPINE 15 MG TAB PO SCH (19:50)
[2021-03-15] MEDS: PANTOPRAZOLE 40 MG INJ IVP SCH (05:21)
[2021-03-15] MEDS: INSULIN -REGULAR HUMAN 50 UNIT/0.5 ML ML SQ SCH ×4 (07:30→20:25)
[2021-03-15] MEDS: TAMSULOSIN 0.4 MG SR CAP PO SCH (08:53)
[2021-03-15] MEDS: FENOFIBRATE 160 MG TAB PO SCH (08:53)
[2021-03-15] MEDS: POLYETHYL GLY 3350 17 GM/DOSE PO SCH (08:53)
[2021-03-15] MEDS: GLUCERNA SHAKE 237 ML CAN PO SCH ×2 (08:53→20:17)
[2021-03-15] MEDS: DOCUSATE NA 100 MG CAP PO SCH ×2 (08:53→20:17)
[2021-03-15] MEDS: THIAMINE HCL 100 MG TABLET PO SCH ×2 (08:53→20:16)
[2021-03-15] MEDS: FLUCONAZOLE 100 MG TAB PO SCH (08:53)
[2021-03-15] MEDS: ACETAMINOPHEN 500 MG TAB PO PRN (10:24)
--- NOTE | 2021-03-15 15:21 | P.PN ---
Subjective Date of Service: 03/15/21 Primary Care Provider: Dr. Sommer in [place] Chief Complaint: covid pneumonia, anemia, gen abd pain, melena Patient has no new complain. Patient on 1-2 L oxygen by nasal cannula. He is waiting for SNF placement. Physical Examination - Vital Signs Temperature: 97.3 F Blood Pressure: 99/62 Pulse: 109 Respirations: 24 Pulse Ox (%): 96 - Physical Exam General: In no apparent distress HEENT: Mucous membr. moist/pink Neck: JVD not distended Respiratory: Other (Nonlabored breathing.) Cardiovascular: No edema, Regular rate/rhythm Gastrointestinal: Soft and benign, Non-distended Musculoskeletal: No swelling Assessment And Plan - Current Problems (Diagnosis) (1) Acute respiratory failure with hypoxia Current Visit: Yes Status: Acute (2) Diabetes mellitus Current Visit: Yes Status: Acute (3) Pneumonia due to COVID-19 virus Current Visit: Yes Status: Acute Physician Review Additional Text: Physical Exam Gen: NAD, alert/oriented HEENT: normal conjunctiva, sclera anicteric CV: Regular rate/rhythm, no edema Pulm: nonlabored breathing Abd: soft, nondistended, nontender. MSK: no joint swelling Neuro: moves all extremities, generalized weakness Problem list Acute hypoxemic respiratory failure secondary to COVID-19 pneumonia Diabetes mellitus, type II, non-insulin dependent Acute metabolic encephalopathy, secondary to COVID-19 vs dementia component, resolved Hypertension Chronic vertigo Constipation GI bleed, secondary to moderate atrophic gastritis Esophageal candidiasis Continue steroids, vitamin supplementation. GI bleed, Xarelto discontinued. Seen by GI-Dr. Fernandez. On Protonix twice daily. s/p EGD and incomplete colonoscopy on 03/07. Patient noted to have gastritis. Repeat colonoscopy on 03/10 -, no stercoral ulcer noted. No bleeding lesion identified. Continue with bowel regimen, daily MiraLAX, Colace twice daily Patient with significant debility, and requiring moderate to max assist, also has chronic vertigo. Meclizine as needed for vertigo Continue PT. SW assisting with arrangement for SNF placement. Continue Remeron.
[2021-03-15] MEDS: INSULIN GLARGINE 100 UNITS/ML SQ SCH (17:19)
[2021-03-15] MEDS: PANTOPRAZOLE 40MG TABLET PO SCH (17:20)
[2021-03-15] MEDS: MIRTAZAPINE 15 MG TAB PO SCH (20:16)
[2021-03-15] MEDS: MELATONIN 5 MG TABLET PO SCH (20:16)
[2021-03-16 04:13] LABS: Absolute Lymphocytes (CBC) 1.2 K/uL (0.7-4.9); Basophils % 0.3 % (0-1.3); Hematocrit 35.4 % (39.6-49.0); Lymphocytes % 13.6 % (15.3-44.8); RBC Red Blood Cell Count 3.49 M/uL (4.33-5.43)
[2021-03-16 04:29] LABS: ALT/SGPT 26 U/L (12-78); AST/SGOT 13 U/L (15-37); Albumin 2.1 g/dL (3.4-5.0); Alkaline Phosphatase 66 U/L (45-117); BUN Blood Urea Nitrogen 21 mg/dL (7-18); Bicarbonate 34 mmol/L (21-32); Bilirubin Total 0.4 mg/dL (0.2-1.0); Glucose Level 150 mg/dL (74-106); Protein, Total 5.8 g/dL (6.4-8.2); Sodium Level 140 mmol/L (136-145)
[2021-03-16] MEDS: INSULIN -REGULAR HUMAN 50 UNIT/0.5 ML ML SQ SCH ×4 (07:30→20:05)
[2021-03-16] MEDS: GLUCERNA SHAKE 237 ML CAN PO SCH ×2 (09:00→20:05)
[2021-03-16] MEDS: DOCUSATE NA 100 MG CAP PO SCH ×2 (09:00→20:05)
[2021-03-16] MEDS: THIAMINE HCL 100 MG TABLET PO SCH ×2 (09:24→20:06)
[2021-03-16] MEDS: TAMSULOSIN 0.4 MG SR CAP PO SCH (09:24)
[2021-03-16] MEDS: PANTOPRAZOLE 40MG TABLET PO SCH ×2 (09:24→16:57)
[2021-03-16] MEDS: FENOFIBRATE 160 MG TAB PO SCH (09:24)
[2021-03-16] MEDS: POLYETHYL GLY 3350 17 GM/DOSE PO SCH (09:25)
[2021-03-16] MEDS: FLUCONAZOLE 100 MG TAB PO SCH (09:25)
[2021-03-16] MEDS: ACETAMINOPHEN 500 MG TAB PO PRN ×2 (09:28→23:39)
--- NOTE | 2021-03-16 13:55 | P.PN ---
Date of Service: 03/16/21 Subjective Patient states he feels okay today, continues with generalized weakness, fatigue, decreased appetite. Physical exam GEN: Alert, oriented, NAD HEENT: Normal conjunctiva, sclera anicteric CV: Regular rate and rhythm, no edema Pulm: Nonlabored respiration on 1 L nasal cannula ABD: Soft, nontender, nondistended MSK: No joint tenderness Neuro: Normal speech, normal affect Problem list Acute hypoxemic respiratory failure secondary to COVID-19 pneumonia Diabetes mellitus, type II, non-insulin dependent Acute metabolic encephalopathy, secondary to COVID-19 vs dementia component, resolved Hypertension Chronic vertigo Constipation GI bleed, secondary to moderate atrophic gastritis Esophageal candidiasis Continue steroids, vitamin supplementation. GI bleed, Xarelto discontinued. Seen by GI-Dr. Fernandez. On Protonix s/p EGD and incomplete colonoscopy on 03/07. Patient noted to have gastritis. Repeat colonoscopy on 03/10 -, no stercoral ulcer noted. No bleeding lesion identified. Continue with bowel regimen Patient with significant debility, and requiring moderate to max assist, also has chronic vertigo. Meclizine as needed for vertigo Continue PT. SW assisting with arrangement for SNF placement. Continue Remeron. Dispo: anticipate dc soon, to SNF, social worker delinquency prevention consulted
[2021-03-16] MEDS: INSULIN GLARGINE 100 UNITS/ML SQ SCH (16:58)
[2021-03-16] MEDS: MELATONIN 5 MG TABLET PO SCH (20:05)
[2021-03-16] MEDS: MIRTAZAPINE 15 MG TAB PO SCH (20:05)
--- NOTE | 2021-03-17 06:26 | P.PN ---
Date of Service: 03/17/21 Subjective Feeling better this morning, states he is overall tired, low appetite, mild lower abdominal discomfort ROS: 10 point review of systems otherwise negative Physical exam GEN: Alert, oriented, NAD HEENT: Normal conjunctiva, sclera anicteric CV: Regular rate and rhythm, no edema Pulm: Nonlabored respiration on 1 L nasal cannula ABD: Soft, mild discomfort in lower abdomen, non-distended Neuro: Normal speech, normal affect Problem list Acute hypoxemic respiratory failure secondary to COVID-19 pneumonia Diabetes mellitus, type II, non-insulin dependent Acute metabolic encephalopathy, secondary to COVID-19 vs dementia component, resolved Hypertension Chronic vertigo Constipation GI bleed, secondary to moderate atrophic gastritis Esophageal candidiasis Continue steroids, vitamin supplementation. GI bleed, Xarelto discontinued. Seen by GI-Dr. Fernandez. On Protonix s/p EGD and incomplete colonoscopy on 03/07. Patient noted to have gastritis. Repeat colonoscopy on 03/10 -, no stercoral ulcer noted. No bleeding lesion identified. Continue with bowel regimen Patient with significant debility, and requiring moderate to max assist, also has chronic vertigo. Meclizine as needed for vertigo Continue PT. SW assisting with arrangement for SNF placement. Continue Remeron. check KUB to eval stool burden. mild lower abdominal discomfort Dispo: anticipate dc soon, to SNF, social services designee consulted
[2021-03-17] MEDS: DOCUSATE NA 100 MG CAP PO SCH ×2 (09:00→19:47)
[2021-03-17] MEDS: GLUCERNA SHAKE 237 ML CAN PO SCH ×2 (09:00→19:47)
[2021-03-17] MEDS: FLUCONAZOLE 100 MG TAB PO SCH (09:48)
[2021-03-17] MEDS: FENOFIBRATE 160 MG TAB PO SCH (09:48)
[2021-03-17] MEDS: PANTOPRAZOLE 40MG TABLET PO SCH ×2 (09:48→16:55)
[2021-03-17] MEDS: POLYETHYL GLY 3350 17 GM/DOSE PO SCH (09:48)
[2021-03-17] MEDS: TAMSULOSIN 0.4 MG SR CAP PO SCH (09:48)
[2021-03-17] MEDS: THIAMINE HCL 100 MG TABLET PO SCH ×2 (09:48→19:46)
[2021-03-17] MEDS: INSULIN -REGULAR HUMAN 50 UNIT/0.5 ML ML SQ SCH ×4 (09:49→19:47)
[2021-03-17] MEDS: ACETAMINOPHEN 500 MG TAB PO PRN (12:43)
[2021-03-17] MEDS: INSULIN GLARGINE 100 UNITS/ML SQ SCH (16:56)
--- NOTE | 2021-03-17 18:32 | RAD REPORT ---
EXAM DESCRIPTION: RAD - Abdomen 1 View (KUB) - 03/17/2021 5:56 pm CLINICAL HISTORY: eval stool burden, lower abd discomfort Pain COMPARISON: Abdomen 1 View (KUB) dated 03/06/2021; Abdomen 1 View (KUB) dated 02/22/2021 FINDINGS: The bowel gas pattern is non-obstructive. No evidence of free air or pneumatosis. There is moderate retained stool throughout the colon seen. No significant bony findings. No pathologic calcifications. Mild interstitial opacities in both lung bases noted. IMPRESSION: Moderate constipation.
[2021-03-17] MEDS: MIRTAZAPINE 15 MG TAB PO SCH (19:47)
[2021-03-17] MEDS: MELATONIN 5 MG TABLET PO SCH (19:47)
[2021-03-18 05:35] LABS: Basophils % 0.3 % (0-1.3); Hematocrit 34.2 % (39.6-49.0); Lymphocytes % 13.3 % (15.3-44.8); MPV 8.2 fL (7.6-11.3); RBC Red Blood Cell Count 3.37 M/uL (4.33-5.43)
[2021-03-18 06:04] LABS: ALT/SGPT 25 U/L (12-78); AST/SGOT 15 U/L (15-37); Alkaline Phosphatase 71 U/L (45-117); BUN Blood Urea Nitrogen 14 mg/dL (7-18); Bicarbonate 33 mmol/L (21-32); Bilirubin Total 0.4 mg/dL (0.2-1.0); Ferritin 789.6 ng/mL (26-388); Glucose Level 86 mg/dL (74-106); Magnesium 1.9 mg/dL (1.8-2.4); Protein, Total 6.1 g/dL (6.4-8.2); Sodium Level 140 mmol/L (136-145)
--- NOTE | 2021-03-18 06:36 | P.PN ---
Subjective Date of Service: 03/18/21 Primary Care Provider: Dr. Sommer in [place] Chief Complaint: covid pneumonia, anemia, gen abd pain, melena Physical Examination - Vital Signs Temperature: 97.5 F Blood Pressure: 97/57 Pulse: 100 Respirations: 19 Pulse Ox (%): 97 Assessment & Plan Physician Review Additional Text: Physical Exam Gen: NAD, alert/oriented HEENT: normal conjunctiva, sclera anicteric CV: Regular rate/rhythm, no edema Pulm: nonlabored breathing Abd: soft, nondistended, nontender. MSK: no joint swelling Neuro: moves all extremities, generalized weakness Problem list Acute hypoxemic respiratory failure secondary to COVID-19 pneumonia Diabetes mellitus, type II, non-insulin dependent Acute metabolic encephalopathy, secondary to COVID-19 vs dementia component, resolved Hypertension Chronic vertigo Constipation GI bleed, secondary to moderate atrophic gastritis Esophageal candidiasis Continue steroids, vitamin supplementation. GI bleed, Xarelto discontinued. Seen by GI-Dr. Fernandez. On Protonix twice daily. s/p EGD and incomplete colonoscopy on 03/07. Patient noted to have gastritis. Repeat colonoscopy on 03/10 -, no stercoral ulcer noted. No bleeding lesion identified. Continue with bowel regimen, daily MiraLAX, Colace twice daily Patient with significant debility, and requiring moderate to max assist, also has chronic vertigo. Meclizine as needed for vertigo Continue PT. SW assisting with arrangement for SNF placement. Continue Remeron.
--- NOTE | 2021-03-18 07:13 | RAD REPORT ---
EXAM DESCRIPTION: RAD - Chest Single View - 03/18/2021 6:55 am CLINICAL HISTORY: hypoxia, COVID f/u COMPARISON: Abdomen 1 View (KUB) dated 03/17/2021; Chest Single View dated 03/07/2021; Abdomen 1 View (KUB) dated 03/06/2021; Chest Single View dated 02/27/2021 FINDINGS: Lines: The enteric tube has been removed. Lungs: Moderate bilateral airspace disease similar to 03/07/2021. Pleural: No significant pleural effusions or pneumothorax. Cardiac: Cardiomegaly. Bones: No acute fractures. Other: IMPRESSION: Similar moderate airspace disease compared with 03/07/2021.
[2021-03-18] MEDS: INSULIN -REGULAR HUMAN 50 UNIT/0.5 ML ML SQ SCH ×4 (07:30→20:27)
[2021-03-18] MEDS: DOCUSATE NA 100 MG CAP PO SCH ×2 (08:30→20:26)
[2021-03-18] MEDS: THIAMINE HCL 100 MG TABLET PO SCH ×2 (08:30→20:26)
[2021-03-18] MEDS: PANTOPRAZOLE 40MG TABLET PO SCH ×2 (08:30→16:36)
[2021-03-18] MEDS: FENOFIBRATE 160 MG TAB PO SCH (08:30)
[2021-03-18] MEDS: TAMSULOSIN 0.4 MG SR CAP PO SCH (08:30)
[2021-03-18] MEDS: FLUCONAZOLE 100 MG TAB PO SCH (08:30)
[2021-03-18] MEDS: METHYLPREDNISOLONE 40 MG INJ IV SCH ×2 (08:31→20:26)
[2021-03-18] MEDS: POLYETHYL GLY 3350 17 GM/DOSE PO SCH (08:31)
[2021-03-18] MEDS: GLUCERNA SHAKE 237 ML CAN PO SCH ×2 (08:32→20:27)
[2021-03-18] MEDS: ACETAMINOPHEN 500 MG TAB PO PRN (10:56)
[2021-03-18 12:02] LABS: Urine Appearance CLEAR (Clear); Urine Bilirubin NEGATIVE (Negative); Urine Blood NEGATIVE (Negative); Urine Color DK YELLOW (Yellow); Urine Glucose 1+ (Negative); Urine Protein 1+ (Negative); Urine Specific Gravity 1.025 (1.005-1.030); Urine pH 7.5 (5.0-7.0)
[2021-03-18 12:07] LABS: Urine Microscopic Reflex ORDER UMIC
[2021-03-18 12:24] LABS: Urine Bacteria <20 /HPF (NONE SEEN)
[2021-03-18 12:25] LABS: Urine Mucus MOD /HPF (NONE SEEN)
[2021-03-18] MEDS: NA CHLORIDE 0.9% 500 ML IV ONE ×2 (16:32→17:00)
[2021-03-18] MEDS: INSULIN GLARGINE 100 UNITS/ML SQ SCH (16:37)
[2021-03-18] MEDS ORDERED: NA CHLORIDE 0.9% 500 ML ONE (16:48)
[2021-03-18] MEDS ORDERED: VANCOMYCIN 2 GM in NA CHLORIDE 0.9% 500 ML IVPB ONE (17:00)
[2021-03-18] MEDS: NA CHLORIDE 0.9% 1,000 ML IV SCH (17:14)
[2021-03-18] MEDS: METRONIDAZOLE 500mg IVPB 500 MG/100 ML BAG IV SCH (17:32)
--- NOTE | 2021-03-18 18:21 | RAD REPORT ---
EXAM DESCRIPTION: CT - Abdomen Pelvis W Contrast - 03/18/2021 6:06 pm CLINICAL HISTORY: Abdominal pain COMPARISON: March 05, 2021 TECHNIQUE: Computed axial tomography of the abdomen pelvis was obtained. 100 cc Isovue-300 was admin istered intravenously. Oral contrast was not requested which limits evaluation of bowel. All CT scans are performed using dose optimization technique as appropriate and may include automated exposure control or mA/KV adjustment according to patient size. FINDINGS: Left lower lobe, right interlobar and right lower lobe pulmonary emboli. Moderate right and mild left basilar mostly ground-glass pulmonary opacities 2.3 centimeter enhancing lesion anterior segment right lobe of liver unchanged. Spleen, pancreas, and adrenals appear unremarkable. Bilateral renal cysts There is no evidence of diverticulitis. The rectum is mildly distended with stool. Moderate amount st ool within the colon. A Banks catheter is present within the bladder. Small inguinal hernias contain fat. Tiny umbilical he rnia Cholelithiasis. Normal appendix. Postsurgical changes involve the stomach IMPRESSION: Bilateral pulmonary emboli Moderate right and mild left basilar lung opacities likely Covid pneumonia 2.3 centimeter hepatic lesion is nonspecific. A followup ultrasound in 3 months is recommended Cholelithiasis Dr Cisse notified
--- NOTE | 2021-03-18 19:33 | P.PN ---
Date of Service: 03/18/21 Subjective Tired this morning, slight abd discomfort, lower buttock/back pain. no nausea/vomiting. low appetite, requiring up to 10L NC with minimal movement / working with PT, otherwise down to 1-2 L NC ROS: 10 point review of systems otherwise negative Physical exam GEN: Alert, oriented, fatigued HEENT: Normal conjunctiva, sclera anicteric CV: Regular rate and rhythm, no edema Pulm: Nonlabored respiration on 1 L nasal cannula ABD: Soft, mild discomfort in lower abdomen, non-distended Neuro: Normal speech, normal affect Problem list Acute hypoxemic respiratory failure secondary to COVID-19 pneumonia Diabetes mellitus, type II, non-insulin dependent Acute metabolic encephalopathy, secondary to COVID-19 vs dementia component, resolved Hypertension Chronic vertigo Constipation GI bleed, secondary to moderate atrophic gastritis Esophageal candidiasis stage 3 decubitus ulcer Continue steroids, vitamin supplementation. GI bleed ~2 weeks ago, Xarelto discontinued. Seen by GI-Dr. Fernandez. On Protonix s/p EGD and incomplete colonoscopy on 03/07. Patient noted to have gastritis. Repeat colonoscopy on 03/10 -, no stercoral ulcer noted. No bleeding lesion identified. Continue with bowel regimen, daily BMs but still having moderate stool burden hypotensive today, not taking as much PO, CRP worsened low grade temp concern for developing bacterial superinfection, obtain cultures, CXR, start antibiotics CT abd/pelvis ordered to eval abd pain / possible source of infection Patient with significant debility, and requiring moderate to max assist, also has chronic vertigo. Meclizine as needed for vertigo Continue PT. SW assisting with arrangement for SNF placement. Continue Remeron. Dispo: anticipate dc in 2-3 days, to SNF, social worker delinquency prevention consulted Time spent on patient's care: 35 minutes.
[2021-03-18] MEDS: APIXABAN 5 MG TABLET PO SCH (20:26)
[2021-03-18] MEDS: MIRTAZAPINE 15 MG TAB PO SCH (20:26)
[2021-03-18] MEDS: MELATONIN 5 MG TABLET PO SCH (20:26)
[2021-03-18] MEDS: CEFEPIME 1 GM in NA CHLORIDE 0.9% 50 ML IV SCH (20:41)
[2021-03-18] MEDS ORDERED: APIXABAN 5 MG TABLET PO SCH (21:00)
[2021-03-18] MEDS ORDERED: CEFEPIME 1 GM/VIAL IV SCH (21:00)
[2021-03-19] MEDS: METRONIDAZOLE 500mg IVPB 500 MG/100 ML BAG IV SCH (00:18)
[2021-03-19 06:20] LABS: Absolute Lymphocytes (CBC) 0.4 K/uL (0.7-4.9); Basophils % 0.2 % (0-1.3); Hematocrit 30.4 % (39.6-49.0); Lymphocytes % 5.7 % (15.3-44.8); MPV 8.5 fL (7.6-11.3); RBC Red Blood Cell Count 2.96 M/uL (4.33-5.43)
--- NOTE | 2021-03-19 06:23 | P.PN ---
Date of Service: 03/19/21 Subjective Patient reports feeling much better this morning, blood pressure slightly better, had CT abdomen/pelvis yesterday which revealed some constipation, bilateral PEs Patient started on Eliquis last night, no evidence of bleeding Patient states appetite has improved, eating well ROS: 10 point review of systems otherwise negative Physical exam GEN: Alert, oriented, fatigued HEENT: Normal conjunctiva, sclera anicteric CV: Regular rate and rhythm, no edema Pulm: Nonlabored respiration on 1 L nasal cannula ABD: Soft, mild discomfort in lower abdomen, non-distended Neuro: Normal speech, normal affect Problem list Acute hypoxemic respiratory failure secondary to COVID-19 pneumonia Diabetes mellitus, type II, non-insulin dependent Acute metabolic encephalopathy, secondary to COVID-19 vs dementia component, resolved Hypertension Chronic vertigo Constipation GI bleed, secondary to moderate atrophic gastritis Esophageal candidiasis stage 3 decubitus ulcer Continue steroids, vitamin supplementation. GI bleed ~2 weeks ago, Xarelto discontinued. Seen by GI-Dr. Fernandez. On Protonix s/p EGD and incomplete colonoscopy on 03/07. Patient noted to have gastritis. Repeat colonoscopy on 03/10 -, no stercoral ulcer noted. No bleeding lesion identified. Continue with bowel regimen, daily BMs but still having moderate stool burden hypotensive 03/18, not taking as much PO, CRP worsened, low grade temp -> repeat CXR and CT abd/pelvis done - b/l PEs noted, likely the cause was empirically started on antibiotics with ID consult, can scale back, likely dc cultures pending Patient with significant debility, and requiring moderate to max assist, also has chronic vertigo. Meclizine as needed for vertigo Continue PT. SW assisting with arrangement for SNF placement. Continue Remeron. Dispo: anticipate dc in 2-3 days, to SNF, social worker aide consulted Accepted to SNF. Will monitor patient over the next 1-2 days with initiation of anticoagulation, in setting of recent GI bleed Time spent on patient's care: 35 minutes.
[2021-03-19 07:27] LABS: Blood Morphology Comment NOTED (NOT SEEN); Macrocytosis 1+; Platelet Estimate DECR; Toxic Granulation 1+
[2021-03-19 07:31] LABS: ALT/SGPT 23 U/L (12-78); AST/SGOT 10 U/L (15-37); Albumin 1.7 g/dL (3.4-5.0); Alkaline Phosphatase 61 U/L (45-117); BUN Blood Urea Nitrogen 15 mg/dL (7-18); Bicarbonate 30 mmol/L (21-32); Bilirubin Total 0.2 mg/dL (0.2-1.0); Ferritin 750.8 ng/mL (26-388); Glucose Level 285 mg/dL (74-106); Potassium 4.3 mmol/L (3.5-5.1); Protein, Total 5.4 g/dL (6.4-8.2); Sodium Level 142 mmol/L (136-145)
[2021-03-19] MEDS: POLYETHYL GLY 3350 17 GM/DOSE PO SCH (08:52)
[2021-03-19] MEDS: MEDIHONEY 44 ML TOPICAL TUBE TOP SCH (08:52)
[2021-03-19] MEDS: DOCUSATE NA 100 MG CAP PO SCH ×2 (08:53→20:48)
[2021-03-19] MEDS: THIAMINE HCL 100 MG TABLET PO SCH (08:53)
[2021-03-19] MEDS: PANTOPRAZOLE 40MG TABLET PO SCH ×2 (08:53→17:04)
[2021-03-19] MEDS: FENOFIBRATE 160 MG TAB PO SCH (08:53)
[2021-03-19] MEDS: FLUCONAZOLE 100 MG TAB PO SCH (08:53)
[2021-03-19] MEDS: METHYLPREDNISOLONE 40 MG INJ IV SCH ×2 (08:53→20:48)
[2021-03-19] MEDS: APIXABAN 5 MG TABLET PO SCH ×2 (08:53→20:48)
[2021-03-19] MEDS: GLUCERNA SHAKE 237 ML CAN PO SCH ×2 (08:54→21:00)
[2021-03-19] MEDS: INSULIN -REGULAR HUMAN 50 UNIT/0.5 ML ML SQ SCH ×4 (08:54→20:50)
[2021-03-19] MEDS: TAMSULOSIN 0.4 MG SR CAP PO SCH (08:54)
[2021-03-19] MEDS: INSULIN GLARGINE 100 UNITS/ML SQ SCH ×2 (08:55→17:02)
[2021-03-19] MEDS: CEFEPIME 1 GM in NA CHLORIDE 0.9% 50 ML IV SCH (09:00)
[2021-03-19] MEDS ORDERED: VANCOMYCIN 1.5 GM in NA CHLORIDE 0.9% 500 ML IVPB SCH (11:00)
[2021-03-19] MEDS: NA CHLORIDE 0.9% 1,000 ML IV SCH (12:13)
--- NOTE | 2021-03-19 12:24 | P.CNS ---
Date of Consult: 03/19/21 Primary Care Provider: Dr. Sommer in [place] Chief Complaint: covid pneumonia, anemia, gen abd pain, melena History of Present Illness: Patient is a 85-year-old male with a past medical history of hypertension, diabetes type 2, hyperlipidemia who presented to the emergency department due to worsening shortness of breath for the past 3 days. Patient found to be covered positive. Has been hospitalized at this facility, Infectious Disease consulted as is suspected patient has superimposed bacterial infection. Patient empirically placed on vancomycin and cefepime. Blood cultures pending. Patient currently denies nausea/vomiting/diarrhea/chest pain/shortness of breath. Currently utilizing 2 L oxygen via nasal cannula. Allergies No Known Allergies Allergy (Verified 02/12/21 22:54) Home Medications: Cholecalciferol (Vitamin D3) [Vitamin D3] 10 mcg PO DAILY 02/12/21 Dapagliflozin Propanediol [Farxiga] 10 mg PO DAILY 02/12/21 Ezetimibe/Simvastatin [Ezetimibe-Simvastatin 10-20 mg] 1 tab PO BEDTIME 02/12/21 Lenalidomide [Revlimid] 25 mg PO DAILY 02/12/21 Metformin HCl [Metformin HCl ER] 750 mg PO BID 02/12/21 Mirabegron [Myrbetriq] 50 mg PO DAILY 02/12/21 Mirtazapine 30 mg PO BEDTIME 02/12/21 Nateglinide 60 mg PO TID 02/12/21 [place]-3 Fatty Acids [[place]-3] 1 cap PO DAILY 02/12/21 Pyridoxine HCl (Vitamin B6) [Vitamin B6] 100 mg PO DAILY 02/12/21 Tamsulosin [Flomax*] 0.4 mg PO DAILY 02/12/21 Docusate [Colace Cap*] 100 mg PO BID #0 cap 03/11/21 Fenofibrate [Tricor*] 160 mg PO DAILY tab 03/11/21 Insulin -Regular Human [Novolin -R*] See Protocol SQ ACHS ml 03/11/21 Meclizine HCl [Antivert*] 25 mg PO Q6H PRN tab 03/11/21 Melatonin 10 mg PO BEDTIME tablet 03/11/21 Pantoprazole [Protonix Tab] 40 mg PO BID #60 tab 03/11/21 Polyethyl Gly 3350 [Glycolax*] 17 gm PO DAILY udbot 03/11/21 Thiamine HCl [Vitamin B-1*] 100 mg PO BID tablet 03/11/21 predniSONE [Deltasone] 20 mg PO BID #21 tab 03/11/21 - Past Medical/Surgical History -: DM2 -: HTN -: HLD -: bone marrow cancer Psychosocial/ Personal History: lives with daughter and son in law - Family History Sister Medical History: Cancer (breast) - Social History Smoking Status: Unknown if ever smoked Alcohol use: No CD- Drugs: No Caffeine use: Yes Review of Systems 10-point ROS is otherwise unremarkable Physical Examination Temp Pulse Resp BP Pulse Ox 97.0 F 95 H 17 94/55 L 95 03/19/21 04:00 03/19/21 04:00 03/19/21 04:00 03/19/21 04:00 03/19/21 04:00 General: In no apparent distress, Cachectic HEENT: Atraumatic, Normocephalic Neck: Supple, 2+ carotid pulse no bruit Respiratory: Diminished Cardiovascular: No edema, Normal S1 S2 Gastrointestinal: Normal bowel sounds, Hypoactive Musculoskeletal: No clubbing, No swelling Integumentary: Other (Sacral pressure ulcer stage III) Conclusions/Impression: Antibiotics: Cefepime Start: 03/18 Stop:-- Possible bacterial pneumonia Continue cefepime Acute hypoxic respiratory failure secondary to COVID 19 Continue oxygen supplementation, vitamin cocktail, steroid therapy Diabetes, and anemia, hyperlipidemia Medical management per primary team Continue monitor CBC and BMP Continue monitor for signs infection Of care discussed with Dr. Catalan Thank you for consultation
--- NOTE | 2021-03-19 13:26 | P.PN ---
Subjective Date of Service: 03/19/21 Primary Care Provider: Dr. Sommer in [place] Chief Complaint: covid pneumonia, pulmonary embolism Doign better today , DX PE / BP now stable Review of Systems is unable to be obtained Physical Examination - Vital Signs Temperature: 97.4 F Blood Pressure: 101/54 Pulse: 95 Respirations: 20 Pulse Ox (%): 95 - Physical Exam General: Alert, Cooperative Cardiovascular: No edema Assessment & Plan - Problems (Diagnosis) (1) Pneumonia due to COVID-19 virus Current Visit: Yes Status: Acute Plan: COVID penumonia improving, on 2 l ncan o2DC Antibiotics. Change to po pred (2) Pulmonary embolism Current Visit: Yes Status: Acute Plan: new DX of PE. resume Eliquis. Anticoaguation for 3 months Qualifiers: Acute cor pulmonale presence: unspecified
[2021-03-19] MEDS: MIRTAZAPINE 15 MG TAB PO SCH ×2 (20:48→21:00)
[2021-03-20 06:01] LABS: Absolute Lymphocytes (CBC) 0.4 K/uL (0.7-4.9); Basophils % 0.1 % (0-1.3); Lymphocytes % 6.4 % (15.3-44.8); MPV 8.6 fL (7.6-11.3); RBC Red Blood Cell Count 2.85 M/uL (4.33-5.43)
[2021-03-20 06:26] LABS: BUN Blood Urea Nitrogen 14 mg/dL (7-18); Bicarbonate 31 mmol/L (21-32); Glucose Level 279 mg/dL (74-106); Magnesium 2.1 mg/dL (1.8-2.4); Potassium 4.4 mmol/L (3.5-5.1); Sodium Level 145 mmol/L (136-145)
--- NOTE | 2021-03-20 06:36 | P.PN ---
Date of Service: 03/20/21 Subjective Patient states he is feeling better this morning Breathing comfortably at rest on 2-3 L nasal cannula, hypoxic with movement He states he wants to walk and work with physical therapy No evidence of bleeding Continues with good appetite, daily bowel movement ROS: 10 point review of systems otherwise negative Physical exam GEN: Alert, oriented, NAD HEENT: Normal conjunctiva, sclera anicteric CV: Regular rate and rhythm, no edema Pulm: Nonlabored respiration on 2 L nasal cannula ABD: Soft, nontender, nondistended Neuro: Normal speech, normal affect Problem list Acute hypoxemic respiratory failure secondary to COVID-19 pneumonia Diabetes mellitus, type II, non-insulin dependent Acute metabolic encephalopathy, secondary to COVID-19 vs dementia component, resolved Hypertension Chronic vertigo Constipation GI bleed, secondary to moderate atrophic gastritis Esophageal candidiasis stage 3 decubitus ulcer Continue steroids, vitamin supplementation. GI bleed ~2 weeks ago, Xarelto discontinued. Seen by GI-Dr. Fernandez. On Protonix s/p EGD and incomplete colonoscopy on 03/07. Patient noted to have gastritis. Repeat colonoscopy on 03/10 -, no stercoral ulcer noted. No bleeding lesion identified. Continue with bowel regimen, daily BMs but still having moderate stool burden hypotensive 03/18, not taking as much PO, CRP worsened, low grade temp -> repeat CXR and CT abd/pelvis done - b/l PEs noted, likely the cause was empirically started on antibiotics with ID consult, can scale back, likely dc cultures pending Patient with significant debility, and requiring moderate to max assist, also has chronic vertigo. Meclizine as needed for vertigo Continue PT. Patient has been accepted to SNF Monitoring hemoglobin/for signs of bleeding after reinitiation of anticoagulation. Had GI bleed approximately 2 weeks ago Dispo: anticipate dc in ~2 days, to SNF, social sciences instructor consulted Accepted to SNF. Will monitor patient over the next 1-2 days with initiation of anticoagulation, in setting of recent GI bleed Time Spent Managing Pts Care (In Minutes): 35
[2021-03-20] MEDS: INSULIN GLARGINE 100 UNITS/ML SQ SCH ×2 (07:30→16:46)
[2021-03-20] MEDS: PANTOPRAZOLE 40MG TABLET PO SCH ×2 (07:30→16:46)
[2021-03-20] MEDS: INSULIN -REGULAR HUMAN 50 UNIT/0.5 ML ML SQ SCH ×4 (07:30→20:12)
[2021-03-20] MEDS: FLUCONAZOLE 100 MG TAB PO SCH (09:00)
[2021-03-20] MEDS: METHYLPREDNISOLONE 40 MG INJ IV SCH ×2 (09:00→19:54)
[2021-03-20] MEDS: APIXABAN 5 MG TABLET PO SCH ×2 (09:00→19:55)
[2021-03-20] MEDS: TAMSULOSIN 0.4 MG SR CAP PO SCH (09:00)
[2021-03-20] MEDS: DOCUSATE NA 100 MG CAP PO SCH ×2 (09:00→19:54)
[2021-03-20] MEDS: MEDIHONEY 44 ML TOPICAL TUBE TOP SCH (09:00)
[2021-03-20] MEDS: GLUCERNA SHAKE 237 ML CAN PO SCH ×2 (09:00→19:57)
[2021-03-20] MEDS: POLYETHYL GLY 3350 17 GM/DOSE PO SCH (09:00)
[2021-03-20] MEDS: ACETAMINOPHEN 500 MG TAB PO PRN (16:58)
[2021-03-20] MEDS: MIRTAZAPINE 15 MG TAB PO SCH (19:54)
[2021-03-21 06:27] LABS: Absolute Lymphocytes (CBC) 0.5 K/uL (0.7-4.9); Basophils % 0.2 % (0-1.3); Hematocrit 31.5 % (39.6-49.0); Lymphocytes % 10.5 % (15.3-44.8); MPV 8.7 fL (7.6-11.3)
--- NOTE | 2021-03-21 06:29 | P.PN ---
Date of Service: 03/21/21 Subjective: Continues to improve, reports generalized weakness. Breathing is the same as yesterday, mostly comfortable. Hypoxic when he moves/tries to ambulate. Working with physical therapy as tolerated. ROS: 10 point review of systems otherwise negative Physical exam GEN: Alert, oriented, NAD HEENT: Normal conjunctiva, sclera anicteric CV: Regular rate and rhythm, no edema Pulm: Nonlabored respiration on 2 L nasal cannula ABD: Soft, nontender, nondistended Neuro: Normal speech, normal affect, generalized weakness Problem list Acute hypoxemic respiratory failure secondary to COVID-19 pneumonia, resolving Diabetes mellitus, type II, non-insulin dependent Acute metabolic encephalopathy, secondary to COVID-19 vs dementia component, resolved Hypertension Chronic vertigo Constipation GI bleed, secondary to moderate atrophic gastritis Esophageal candidiasis stage 3 decubitus ulcer Continue steroids, vitamin supplementation. GI bleed ~2 weeks ago, Xarelto discontinued. Seen by GI-Dr. Fernandez. On Protonix s/p EGD and incomplete colonoscopy on 03/07. Patient noted to have gastritis. Repeat colonoscopy on 03/10 -, no stercoral ulcer noted. No bleeding lesion identified. Continue with bowel regimen, daily BMs but still having moderate stool burden hypotensive 03/18, not taking as much PO, CRP worsened, low grade temp -> repeat CXR and CT abd/pelvis done - b/l PEs noted, likely the cause was empirically started on antibiotics with ID consult, can scale back, likely dc cultures pending Patient with significant debility, and requiring moderate to max assist, also has chronic vertigo. Meclizine as needed for vertigo Continue PT. Patient has been accepted to SNF Monitoring hemoglobin/for signs of bleeding after reinitiation of anticoagulation on 03/19 evening. Had GI bleed approximately 2 weeks ago hgb stable, no evidence of bleed so far Dispo: anticipate dc in ~1-2 days, to SNF, social service assistant consulted Accepted to SNF. Will monitor patient over the next 1-2 days with initiation of anticoagulation, in setting of recent GI bleed Time Spent Managing Pts Care (In Minutes): 35
[2021-03-21 07:03] LABS: BUN Blood Urea Nitrogen 12 mg/dL (7-18); Bicarbonate 32 mmol/L (21-32); Glucose Level 211 mg/dL (74-106); Magnesium 1.9 mg/dL (1.8-2.4); Potassium 4.3 mmol/L (3.5-5.1); Sodium Level 142 mmol/L (136-145)
[2021-03-21] MEDS: INSULIN GLARGINE 100 UNITS/ML SQ SCH ×2 (07:30→16:30)
[2021-03-21] MEDS: MEDIHONEY 44 ML TOPICAL TUBE TOP SCH (09:00)
[2021-03-21] MEDS: GLUCERNA SHAKE 237 ML CAN PO SCH ×2 (09:00→19:51)
[2021-03-21] MEDS: INSULIN -REGULAR HUMAN 50 UNIT/0.5 ML ML SQ SCH ×4 (09:04→19:51)
[2021-03-21] MEDS: DOCUSATE NA 100 MG CAP PO SCH ×2 (09:05→19:50)
[2021-03-21] MEDS: METHYLPREDNISOLONE 40 MG INJ IV SCH ×2 (09:05→19:50)
[2021-03-21] MEDS: POLYETHYL GLY 3350 17 GM/DOSE PO SCH (09:05)
[2021-03-21] MEDS: PANTOPRAZOLE 40MG TABLET PO SCH ×2 (09:05→17:45)
[2021-03-21] MEDS: FLUCONAZOLE 100 MG TAB PO SCH (09:05)
[2021-03-21] MEDS: TAMSULOSIN 0.4 MG SR CAP PO SCH (09:06)
[2021-03-21] MEDS: APIXABAN 5 MG TABLET PO SCH ×2 (09:06→19:50)
[2021-03-21] MEDS: MIRTAZAPINE 15 MG TAB PO SCH (19:50)
[2021-03-22 04:08] LABS: Absolute Lymphocytes (CBC) 0.6 K/uL (0.7-4.9); Basophils % 0.3 % (0-1.3); Lymphocytes % 11.9 % (15.3-44.8); MPV 8.2 fL (7.6-11.3); RBC Red Blood Cell Count 3.32 M/uL (4.33-5.43)
[2021-03-22 05:12] LABS: Blood Morphology Comment NOTED (NOT SEEN); Platelet Estimate ADEQ; Polychromasia 1+
[2021-03-22] MEDS: INSULIN -REGULAR HUMAN 50 UNIT/0.5 ML ML SQ SCH (07:30)
[2021-03-22 08:51] VITALS: O2SAT 96
[2021-03-22] MEDS: POLYETHYL GLY 3350 17 GM/DOSE PO SCH (09:00)
[2021-03-22] MEDS: GLUCERNA SHAKE 237 ML CAN PO SCH (09:00)
[2021-03-22] MEDS: MEDIHONEY 44 ML TOPICAL TUBE TOP SCH (09:00)
[2021-03-22] MEDS: INSULIN GLARGINE 100 UNITS/ML SQ SCH (09:03)
[2021-03-22] MEDS: APIXABAN 5 MG TABLET PO SCH (09:03)
[2021-03-22] MEDS: DOCUSATE NA 100 MG CAP PO SCH (09:03)
[2021-03-22] MEDS: TAMSULOSIN 0.4 MG SR CAP PO SCH (09:03)
[2021-03-22] MEDS: PANTOPRAZOLE 40MG TABLET PO SCH (09:03)
[2021-03-22] MEDS: METHYLPREDNISOLONE 40 MG INJ IV SCH (09:05)
[2021-03-22 12:08] VITALS: BP 122/73; TEMP 98.1
--- NOTE | 2021-03-22 12:46 | P.PN ---
Subjective Date of Service: 03/22/21 Primary Care Provider: Dr. Sommer in [place] Chief Complaint: covid pneumonia, pulmonary embolism Patient seen examined at bedside, doing well no acute complaints. Review of Systems 10-point ROS is otherwise unremarkable Physical Examination - Vital Signs Temperature: 98.1 F Blood Pressure: 122/73 Pulse: 108 Respirations: 18 Pulse Ox (%): 94 - Studies Laboratory Last Values WBC 5.70 K/uL (4.3-10.9) D 02/11/21 13:12 RBC 4.10 M/uL (4.33-5.43) L 02/11/21 13:12 Hgb 14.1 g/dL (13.6-17.9) 02/11/21 13:12 Hct 40.9 % (39.6-49.0) 02/11/21 13:12 MCV 99.6 fL (80-100) 02/11/21 13:12 MCH 34.2 pg (27.0-35.0) 02/11/21 13:12 MCHC 34.4 g/dL (32.0-36.0) 02/11/21 13:12 RDW 13.5 % (12.1-15.2) 02/11/21 13:12 Plt Count 157 K/uL (152-406) D 02/11/21 13:12 MPV 9.0 fL (7.6-11.3) 02/11/21 13:12 Neutrophils % 75.9 % (41.7-73.7) H 02/11/21 13:12 Lymphocytes % 13.9 % (15.3-44.8) L 02/11/21 13:12 Monocytes % 9.7 % (3.3-12.3) 02/11/21 13:12 Eosinophils % 0.2 % (0-4.4) 02/11/21 13:12 Basophils % 0.3 % (0-1.3) 02/11/21 13:12 Absolute Neutrophils 4.3 K/uL (1.8-8.0) 02/11/21 13:12 Absolute Lymphocytes 0.8 K/uL (0.7-4.9) 02/11/21 13:12 Absolute Monocytes 0.6 K/uL (0.1-1.3) 02/11/21 13:12 Absolute Eosinophils 0.0 K/uL (0-0.5) 02/11/21 13:12 Absolute Basophils 0.0 K/uL (0-0.5) 02/11/21 13:12 PT 15.8 SECONDS (9.5-12.5) H 02/11/21 13:12 INR 1.37 02/11/21 13:12 Sodium 139 mmol/L (136-145) 02/11/21 13:12 Potassium 3.3 mmol/L (3.5-5.1) L 02/11/21 13:12 Chloride 108 mmol/L (98-107) H 02/11/21 13:12 Carbon Dioxide 25 mmol/L (21-32) 02/11/21 13:12 BUN 15 mg/dL (7-18) 02/11/21 13:12 Creatinine 0.83 mg/dL (0.55-1.3) 02/11/21 13:12 Estimated GFR 88 mL/min (=/>90) L 02/11/21 13:12 Glucose 371 mg/dL (74-106) H 02/11/21 13:12 Lactic Acid 1.6 mmol/L (0.4-2.0) 02/11/21 10:05 Calcium 8.3 mg/dL (8.5-10.1) L 02/11/21 13:12 Magnesium 1.9 mg/dL (1.8-2.4) 02/11/21 13:12 Ferritin 1535.1 ng/mL (26-388) H 02/11/21 10:05 Total Bilirubin 0.4 mg/dL (0.2-1.0) 02/11/21 13:12 Direct Bilirubin 0.2 mg/dL (0-0.2) 02/11/21 13:12 AST 51 U/L (15-37) H 02/11/21 13:12 ALT 35 U/L (12-78) 02/11/21 13:12 Alkaline Phosphatase 61 U/L (45-117) 02/11/21 13:12 Rapid Troponin I < 0.02 ng/mL (0.0-0.045) 02/11/21 13:12 C-Reactive Protein 218.00 mg/L (<3.00) H 02/11/21 10:05 NT-Pro-B Natriuret Pep 821 pg/mL (<450) H 02/11/21 13:12 Serum Total Protein 7.3 g/dL (6.4-8.2) 02/11/21 13:12 Albumin 2.6 g/dL (3.4-5.0) L 02/11/21 13:12 Globulin 4.7 g/dL (2.3-3.5) H 02/11/21 13:12 Albumin/Globulin Ratio 0.6 (1.1-1.8) L 02/11/21 13:12 Procalcitonin 0.50 ng/mL (<0.050) H 02/11/21 15:05 Assessment And Plan - Plan Physical Exam: General: In no apparent distress, Cachectic HEENT: Atraumatic, Normocephalic Neck: Supple, 2+ carotid pulse no bruit Respiratory: Diminished Cardiovascular: No edema, Normal S1 S2 Gastrointestinal: Normal bowel sounds, Hypoactive Musculoskeletal: No clubbing, No swelling Integumentary: Other (Sacral pressure ulcer stage III) Conclusions/Impression: Possible bacterial pneumonia Patient placed on cefepime, has been discontinued. No need for antibiotics at this time. Acute hypoxic respiratory failure secondary to COVID 19 Continue oxygen supplementation, vitamin cocktail, steroid therapy Diabetes, and anemia, hyperlipidemia Medical management per primary team Continue monitor CBC and BMP Continue monitor for signs infection Of care discussed with Dr. Catalan Thank you for consultation
--- NOTE | 2021-03-22 18:05 | P.DS ---
Admission Date: 02/11/21 Discharge Date: 03/22/21 Primary Care Provider: Dr. Sommer in [place] Disposition: TRANSFER TO SNF - MEDICAL Discharge Condition: FAIR Reason for Admission: covid pneumonia, pulmonary embolism Consultations: Infectious disease Dr. Catalan PulmonologyDr. Montes De [facility] GI - Dr. Fernandez Procedures: CXR (02/11): IMPRESSION: Mild bilateral airspace opacities which is new from prior and concerning for multifocal pneumonia, including Covid-19. CT Head (02/12): IMPRESSION: No acute intracranial abnormality is seen. If patient's symptoms persist MRI of the brain would be recommended. CT abdomen/pelvis (03/05): FINDINGS: Interstitial and alveolar opacities are present in each lung base. Patient has a known COVID pneumonia. No cardiomegaly or pericardial effusion. Liver size is normal. In segment V at the gallbladder fossa (image 20/107) there is a 2.3 centimeter rounded mass. Mass is peripherally enhancing with central hypodense structure. No other liver lesions are identifiable. Liver attenuation is borderline fatty infiltrated. The lesion is more isodense to the surrounding parenchyma on venous phase imaging. This could be an atypical appearing hemangioma. Focal nodular hyperplasia or adenoma are possibilities. This does not appear to be an aggressive process. Long-term significance is doubtful. Follow-up imaging could be obtained to monitor this finding. Spleen and pancreas show no suspicious findings. No gallbladder dilatation or gallbladder wall thickening. A 5 millimeter gallstone is present. Additional gallstones could be occult. No duct stone or biliary tree dilatation identifiable. Symmetric renal function is seen with no hydronephrosis or suspicious renal mass. No pyelonephritis or acute parenchymal process. Patient has multiple benign renal cortical cysts. Largest is 5 cm. Most are 13 mm or less in size. No adrenal abnormalities. No urinary bladder abnormality. Lobulated heterogeneous prostate gland is seen projecting into the bladder base. No pelvic side wall or rectal wall invasion. Large stool volume dilates the rectum to 6.5 cm. Moderate stool volume is present filling but not dilating the remainder of the colon. Sigmoid is redundant extending well into the upper right abdomen. No colon mass suspected. No free air, free fluid or inflammatory stranding. No mass or bulky lymphadenopathy. Fat filled inguinal hernias are present. No suspicious bony findings. Patient has mild for age degenerative changes to the spine. IMPRESSION: Contrast enhanced CT abdomen and pelvis showing no acute or emergent finding. Rectum is dilated to 6.5 cm by stool. Moderate stool volume elsewhere in the colon. Sigmoid is quite redundant and tortuous extending to the upper right abdomen. A 2.3 centimeter rounded right lobe liver masses seen. Differential considerations detailed above. Aggressive lesion is unlikely. Follow-up hepatic sonography in 6 months could be performed to monitor this finding. EGD and colonoscopy on 03/07 - by Dr. Fernandez Numerous white plaques in the upper and lower esophagus, probable candidal esophagitis Small hiatal hernia Moderate atrophic gastritis in the body, the antrum of the stomach, s/p biopsies. Clean-based ulcers in the antrum. C-scope: moderate diverticulosis in the descending colon and sigmoid colon. Small internal and external hemorrhoids. Poor prep, unable to pass large solid stool in the descending colon. CXR (03/07): IMPRESSION: Nasogastric tube has been inserted into the lateral aspect of the proximal to mid stomach Endoscopy (03/10): Moderate diverticulosis throughout the entire examined colon. Moderate-sized internal and external hemorrhoids. Intubation to cecum Poor prep despite 3-day colonoscopy prep. CT abdomen/pelvis (03/18): FINDINGS: Left lower lobe, right interlobar and right lower lobe pulmonary emboli. Moderate right and mild left basilar mostly ground-glass pulmonary opacities 2.3 centimeter enhancing lesion anterior segment right lobe of liver unchanged. Spleen, pancreas, and adrenals appear unremarkable. Bilateral renal cysts There is no evidence of diverticulitis. The rectum is mildly distended with stool. Moderate amount stool within the colon. A Banks catheter is present within the bladder. Small inguinal hernias contain fat. Tiny umbilical hernia Cholelithiasis. Normal appendix. Postsurgical changes involve the stomach IMPRESSION: Bilateral pulmonary emboli Moderate right and mild left basilar lung opacities likely Covid pneumonia 2.3 centimeter hepatic lesion is nonspecific. A followup ultrasound in 3 months is recommended Cholelithiasis CXR (03/18): IMPRESSION: Similar moderate airspace disease compared with 03/07/2021. Problem list Acute hypoxemic respiratory failure secondary to COVID-19 pneumonia Bilateral pulmonary emboli Esophageal candidiasis Diabetes mellitus, type II, non-insulin dependent Acute metabolic encephalopathy, secondary to COVID-19 with dementia component, resolved Hypertension Chronic vertigo Constipation GI bleed, secondary to moderate atrophic gastritis stage 3 decubitus ulcer Debility Brief History of Present Illness: 85 y/o with HTN, DM2, HLD, who presents today with worsening SOB x 3 days. History is obtained from daughter (Swathi) since patient is very hard of hearing. Patient diagnosed with covid on 02/04. Daughter reported pt was c/o chest pain and was found to be hypoxic 75-78%. EMS brought patient in. No covid vaccine per daughter. K 3.3, lactate 1.6, gluc 371, ferritin 1535, CRP 218, procal 0.50 negative troponin Hospital Course: Patient was admitted and treated for COVID-19 pneumonia with steroids, vitamin supplementation, baricitinib. He initially required high flow oxygen was gradually weaned down as he improved. This was done of her weeks, patient would get too dyspneic in 2 weeks to ambulate. Patient became significantly debilitated. He was seen by physical therapy and recommended skilled rehab. Due to his immobility and COVID-19 pneumonia causing high risk for VTE, patient was empirically treated with Xarelto. During his hospitalization he developed a GI bleed with maroonish stool. GI was consulted, patient underwent EGD and colonoscopy x2 (both had incomplete prep). As noted above, EGD revealed gastritis, a clean-based ulcer in the antrum, and white plaques concerning for esophageal candidiasis. No pathology was noted other than diverticulosis in his colonoscopies, however they were not complete scopes due to incomplete prep. His constipation was managed with stool softeners and laxatives. The Xarelto was discontinued. Patient completed 2 weeks of p.o. Diflucan. A second CT abdomen/pelvis was obtained on 03/18, patient was slightly more hypotensive, had a temperature to 99.4, had an elevation of his CRP, and was not feeling too well, slight abdominal discomfort on palpation. On CT, abdomen/pelvis was without any acute findings, still with moderate constipation. CT did note bilateral PEs in the lower lung moses. He was started on Eliquis, and was monitored over 3 additional days. Hemoglobin was stable, patient continued to feel well, and did not have any black/maroon/red stool. He was deemed stable to transfer to retirement facility to continue treatment/monitoring. Vital Signs/Physical Exam: Physical exam GEN: Alert, oriented, NAD HEENT: Normal conjunctiva, sclera anicteric CV: Regular rate and rhythm, no edema Pulm: Nonlabored respiration on 2 L nasal cannula ABD: Soft, nontender, nondistended Neuro: Normal speech, normal affect, generalized weakness Temp Pulse Resp BP Pulse Ox 98.1 F 108 H 18 122/73 94 03/22/21 12:46 03/22/21 12:46 03/22/21 12:46 03/22/21 12:46 03/22/21 12:46 Laboratory Data at Discharge: WBC 5.00 K/uL (4.3-10.9) 03/22/21 03:12 Hgb 11.2 g/dL (13.6-17.9) L 03/22/21 03:12 Hct 34.0 % (39.6-49.0) L 03/22/21 03:12 Plt Count 190 K/uL (152-406) 03/22/21 03:12 PT 15.8 SECONDS (9.5-12.5) H 02/11/21 13:12 INR 1.37 02/11/21 13:12 Sodium 142 mmol/L (136-145) 03/21/21 05:29 Potassium 4.3 mmol/L (3.5-5.1) 03/21/21 05:29 BUN 12 mg/dL (7-18) 03/21/21 05:29 Creatinine 0.38 mg/dL (0.55-1.3) L 03/21/21 05:29 Glucose 211 mg/dL (74-106) H 03/21/21 05:29 Phosphorus 3.4 mg/dL (2.5-4.9) 02/13/21 09:13 Magnesium 1.9 mg/dL (1.8-2.4) 03/21/21 05:29 Total Bilirubin 0.2 mg/dL (0.2-1.0) 03/19/21 05:46 AST 10 U/L (15-37) L 03/19/21 05:46 ALT 23 U/L (12-78) 03/19/21 05:46 Alkaline Phosphatase 61 U/L (45-117) 03/19/21 05:46 Triglycerides 94 mg/dL (<150) 02/12/21 07:52 Cholesterol 82 mg/dL (<200) 02/12/21 07:52 HDL Cholesterol 35 mg/dL (40-60) L 02/12/21 07:52 Cholesterol/HDL Ratio 2.34 02/12/21 07:52 Home Medications: Cholecalciferol (Vitamin D3) [Vitamin D3] 10 mcg PO DAILY 02/12/21 Dapagliflozin Propanediol [Farxiga] 10 mg PO DAILY 02/12/21 Ezetimibe/Simvastatin [Ezetimibe-Simvastatin 10-20 mg] 1 tab PO BEDTIME 02/12/21 Metformin HCl [Metformin HCl ER] 750 mg PO BID 02/12/21 Mirabegron [Myrbetriq] 50 mg PO DAILY 02/12/21 Nateglinide 60 mg PO TID 02/12/21 [place]-3 Fatty Acids [[place]-3] 1 cap PO DAILY 02/12/21 Pyridoxine HCl (Vitamin B6) [Vitamin B6] 100 mg PO DAILY 02/12/21 Tamsulosin [Flomax*] 0.4 mg PO DAILY 02/12/21 Docusate [Colace Cap*] 100 mg PO BID #0 cap 03/11/21 Fenofibrate [Tricor*] 160 mg PO DAILY tab 03/11/21 Insulin -Regular Human [Novolin -R*] See Protocol SQ ACHS ml 03/11/21 Meclizine HCl [Antivert*] 25 mg PO Q6H PRN tab 03/11/21 Melatonin 10 mg PO BEDTIME tablet 03/11/21 Pantoprazole [Protonix Tab] 40 mg PO BID #60 tab 03/11/21 Polyethyl Gly 3350 [Glycolax*] 17 gm PO DAILY udbot 03/11/21 Thiamine HCl [Vitamin B-1*] 100 mg PO BID tablet 03/11/21 predniSONE [Deltasone] 20 mg PO BID #21 tab 03/11/21 Apixaban [Eliquis] 5 mg PO BID tablet 03/22/21 Medihoney [Medihoney Woundcare Gel*] 1 appl TOP DAILY tube 03/22/21 Mirtazapine [Remeron*] 7.5 mg PO BEDTIME tab 03/22/21 New Medications: predniSONE [Deltasone] 20 mg PO BID #21 tab Pantoprazole [Protonix Tab] 40 mg PO BID #60 tab Physician Discharge Instructions: You are found to have COVID-19 pneumonia. You had a prolonged hospitalization due to slow improvement of the pneumonia/oxygen requirement, and upper GI bleed, and a pulmonary embolus. COVID-19 pneumoniahe had gradual improvement, you are discharged to continue steroids, to be weaned over the next week. Continue oxygen mesh required to maintain saturations of 92%. Upper GI bleedin the middle of your hospitalization, you were found to have dark red blood in your stool. GI was consulted, you underwent above and below scopes (EGD, colonoscopy), and you are found to have gastritis. This was felt to be the likely source of the bleeding. The bleeding was likely provoked due to you being on Xarelto. Xarelto is a blood thinner that you were being treated with due to your COVID-19 infection and elevated D-dimer, which puts you at significant risk for developing a blood clot or pulmonary embolism. Your Xarelto was discontinued due to the bleeding. You were treated with twice a day pantoprazole. You are to continue pantoprazole twice a day. Follow-up with GI in the next few weeks. On 03/18/2021 you underwent a repeat CT scan to evaluate your constipation/abdominal discomfort. There was no acute process/significantly concerning findings in your abdomen other than moderate constipation. But the CT did reveal bilateral pulmonary emboli. As discussed, this was likely provoked from your COVID-19 infection increasing risk for blood clots, as well as you not getting out of bed much due to your difficulty breathing and generalized weakness. You were started on Eliquis 5 mg twice a day. You will need to take this for at least 3 months. You need to monitor for any recurrent bleeding in your stool. You are discharged to a retirement facility for continued physical therapy/rehab, and continued treatment. Diet: ADA Activity: Fall precautions Followup: Bari Montes De Oca MD [ACTIVE - CAN ADMIT] - (within 2 weeks.) Yeison Sommer DO [Primary Care Provider] - (Call to schedule appointment.) Genaro Fernandez MD [ASSOCIATE-ACTIVE - CAN ADMIT] - (Within 2 weeks) Time spent managing pt's care (in minutes): 45
[2021-03-22] MEDS ORDERED: predniSONE 20 MG TAB PO SCH (21:00)
== END 2021-03-22 14:10 | DRG 177 ==
LOC: ER 12:41 → ERHOLD 17:00 → 4TH 02-12 17:09 → UNDODISIN 03-11 16:15 → 4TH 03-11 17:32
PROVIDERS: ADMIT Internal Medicine; ATTEND Hospitalist
PROC: 0DB68ZX Excision of Stomach, Via Natural or Artificial Opening Endoscopic, Diagnostic (ICD-10-PCS; 2021-03-07)
PROC: 0DJD8ZZ Inspection of Lower Intestinal Tract, Via Natural or Artificial Opening Endoscopic (ICD-10-PCS; principal; 2021-03-07 14:00)
PROC: 0DB58ZX Excision of Esophagus, Via Natural or Artificial Opening Endoscopic, Diagnostic (ICD-10-PCS; 2021-03-07 14:00)
PROC: 0DJD8ZZ Inspection of Lower Intestinal Tract, Via Natural or Artificial Opening Endoscopic (ICD-10-PCS; 2021-03-10)
DX: U07.1 COVID-19 (principal); J12.82 Pneumonia due to coronavirus disease 2019; L89.153 Pressure ulcer of sacral region, stage 3; J96.01 Acute respiratory failure with hypoxia; G93.41 Metabolic encephalopathy; K29.41 Chronic atrophic gastritis with bleeding; I26.99 Other pulmonary embolism without acute cor pulmonale; B37.81 Candidal esophagitis; E44.0 Moderate protein-calorie malnutrition; I10 Essential (primary) hypertension; E11.9 Type 2 diabetes mellitus without complications; E78.5 Hyperlipidemia, unspecified; E87.6 Hypokalemia; E88.81 Metabolic syndrome and other insulin resistance; K59.00 Constipation, unspecified; R42 Dizziness and giddiness; K44.9 Diaphragmatic hernia without obstruction or gangrene; K57.90 Diverticulosis of intestine, part unspecified, without perforation or abscess without bleeding; K64.8 Other hemorrhoids; K64.4 Residual hemorrhoidal skin tags; D64.9 Anemia, unspecified; R53.81 Other malaise; K25.9 Gastric ulcer, unspecified as acute or chronic, without hemorrhage or perforation; Z68.27 Body mass index [BMI] 27.0-27.9, adult
CPT/HCPCS: 36415; 70450; 71045; 74018; 74177; 80048; 80053; 80061; 80076; 81003; 81015; 82728; 82947; 83036; 83605; 83735; 83880; 84100; 84132; 84145; 84439; 84443; 84484; 85014; 85018; 85025; 85027; 85379; 85610; 86140; 87040; 88305; 88312; 93005; 94003; 94760; 96374; 97110; 97112; 97116; 97161; 97530; 99251; 99285; C9113; J0360; J0692; J1100; J1450; J1630; J1650; J1815; J1940; J2250; J2270; J2704; J2765; J2920; J2930; J3370; J3480; J3486; J7030; J7040; J7050; J7799; Q9967; U0003